=== PATIENT | female | born 1990 | race Caucasian/White ===

== ENCOUNTER 2018-05-18 18:32 | Emergency (ER) | payer MEDICAID, SELFPAY ==
[2018-05-18 18:33] VITALS: BP 122/95; PULSE 109; RESP 12; TEMP 36.8; O2SAT 100; BMI 24.5
--- NOTE | 2018-05-18 19:21 | ED.DCSUM_ITS ---
- ER Visit Summary Date of Service: 05/18/18 Chief Complaint: Syncope History of Present Illness: The patient is a 28 F who presents with syncope. She states that today she was very stressed and she sat down to take a nap and when she woke up everybody was around her and said that she passed out. She states that she feels normal now. She has a lot of anxiety and has been stressed recently. She does have a history of syncopal episodes in the past. She currently is on gabapentin, Minipress and rec salty. She states that she just restarted these medications today. Physical Examination: Vital signs reviewed. HEENT exam unremarkable. Heart is regular rate and rhythm without murmurs. Lungs are clear to auscultation. Abdomen is soft and nontender. Extremities reveal no edema. Skin exam normal. Neurologic exam normal. Test Results: None performed Emergency Department Course and Treatment: Patient does not want any laboratory studies or any workup. She is currently alert and oriented x3 he can make her own decisions. She will be discharged Treatment Plan: [] Disposition: Discharge Impression: Syncope This note was generated with [employer] dictation software. It may contain incorrect words, spelling, and punctuation that were not noted in review of the chart prior to signing ED Disposition - Plan for ED Patient: Disposition: Home or Assisted Living Chief Complaint: Syncope Instructions: ED Fainting Unkn Cause Referrals: Care Physician,No Primary [Primary Care Provider] -
--- NOTE | 2018-05-18 19:27 | ED.RN ---
DISCHARGE INSTRUCTIONS GIVEN TO AND REVIEWED WITH PATIENT, PATIENT DENIES QUESTIONS OR CONCERNS AND VOICES UNDERSTANDING OF DISCHARGE INSTRUCTIONS. PT AMBULATES OUT OF ROOM WITHOUT DIFFICULTY
== END 2018-05-18 19:28 | disposition home or self-care (01) ==
PROVIDERS: Emergency Provider Emergency Medicine
DX: R55 Syncope and collapse (principal); F41.9 Anxiety disorder, unspecified; Z72.0 Tobacco use; Z79.899 Other long term (current) drug therapy
CPT/HCPCS: 99283

== ENCOUNTER 2018-07-09 15:05 | Emergency (ER) | payer MEDICAID, SELFPAY ==
[2018-07-09 15:06] VITALS: BP 140/79; PULSE 103; RESP 16; TEMP 36.6; O2SAT 98; BMI 24.9
--- NOTE | 2018-07-09 15:21 | CT_ITS ---
STUDY: CT BRAIN WITHOUT CONTRAST REASON FOR EXAM: Female, 28 years old. Right posterior head injury following a fall. Loss of consciousness. Vomiting. RADIATION DOSAGE (If Supplied By Facility): CTDIvol = ( 44.99 ) mGy, DLP = ( 745.49 ) mGycm TECHNIQUE: Transaxial CT imaging of the brain was performed without administration of intravenous contrast material. Individualized dose optimization techniques were used for this CT. COMPARISON: None. FINDINGS: Normal soft tissue structures. Physis suggesting a nondisplaced fracture involving the right occipital bone. The patient has a history of old fracture. Clinical correlation is recommended. Normal size ventricles and extra-axial spaces for the patient's age. Normal white matter tracts of the cerebral hemispheres. Normal basal ganglia and thalami. Normal brainstem. Normal cerebellum. There is no intracranial hemorrhage. There are no findings of an acute ischemic infarction. Normal visualized paranasal sinuses. CT/Brain/Head without Contrast IMPRESSION: Nondisplaced fracture of the right posterior occipital bone as seen on axial image #9 and coronal image #59 and 60. Clinical correlation is recommended. The referring physician has been notified. Electronically Signed: Huey Joaquin MD at 16:07 EST Tel [phone], Service support ,
--- NOTE | 2018-07-09 15:30 | ED.VISSUMM ---
- ER Visit Summary Date of Service: 07/09/18 Chief Complaint: Head injury History of Present Illness: The patient is a 28 F presenting for evaluation secondary to a head injury. Patient reports that she suffered a mechanical fall downstairs today where she slipped and struck her occiput on stairs. She reports that she may have slid down as many as 3 or 4 steps. She lost consciousness. She states that since then she has been having headache, dizziness, and has vomited 3 times. Patient denies that she is on a set of anticoagulants. She denies any visual changes numbness or weakness. Physical Examination: Primary survey: Airway is patent, breath sounds equal bilateral, central peripheral pulses 2+ and symmetric, GCS 15 out of 15. Vitals within normal limits. Secondary survey: General: Well-nourished well-developed no acute distress Head: Normocephalic atraumatic, tenderness to palpation in the right occipital region without evidence of depressed skull fracture Eyes: PERRLA, EOMI ENT: TMs clear no hemotympanum no drainage Neck: Nontender full range of motion, no step-offs noted Heart: Regular rate and rhythm no murmurs Lungs: Respirations nondistressed, lung sounds clear to auscultation bilaterally, chest nontender, normal chest excursion bilaterally Abdomen: Soft nontender nondistended normal bowel sounds no palpable abdominal masses Back: Nontender no step-offs noted Extremities: Nontender: Active full range of motion ?4 Skin: Normal color no trauma Neuro: Alert and oriented ?4, GCS 15 out of 15, no lateralizing neurological deficits. Test Results: Head CT demonstrates evidence of a nondisplaced right occipital skull fracture without any evidence of underlying hematoma Emergency Department Course and Treatment: Patient presented secondary to a mechanical fall with head injury. Given the patient's loss of consciousness and location of her injury CT was performed. CT showed evidence of a right occipital skull fracture. Patient secondary survey actually shows no other traumatic issues. I do not believe that further imaging is indicated. Given the patient's skull fracture I believe that she requires observation at a trauma center. Patient requested transfer to [facility]. I will discussed this with the transfer line. Disposition: Transfer Impression: 1. Right occipital skull fracture 2. Mechanical fall downstairs This note was generated with [employer] dictation software. It may contain incorrect words, spelling, and punctuation that were not noted in review of the chart prior to signing ED Disposition - Plan for ED Patient: Chief Complaint: Head Injury Referrals: Care Physician,No Primary [NON-STAFF] -
--- NOTE | 2018-07-09 15:35 | ED.DCSUM_ITS ---
- ER Visit Summary Date of Service: 07/09/18 Chief Complaint: Head injury History of Present Illness: The patient is a 28 F presenting for evaluation secondary to a head injury. Patient reports that she suffered a mechanical fall downstairs today where she slipped and struck her occiput on stairs. She rep orts that she may have slid down as many as 3 or 4 steps. She lost consciousness. She states that since then she has been having headache, dizziness, and has vomited 3 times. Patient denies that she is on a set of anticoagulants. She denies any visual changes numbness or weakness. Physical Examination: Primary survey: Airway is patent, breath sounds equal bilateral, central peripheral pulses 2+ and symmetric, GCS 15 out of 15. Vitals within normal limits. Secondary survey: General: Well-nourished well-developed no acute distress Head: Normocephalic atraumatic, tenderness to palpation in the right occipital region without evidence of depressed skull fracture Eyes: PERRLA, EOMI ENT: TMs clear no hemotympanum no drainage Neck: Nontender full range of motion, no step-offs noted Heart: Regular rate and rhythm no murmurs Lungs: Respirations nondistressed, lung sounds clear to auscultation bilaterally, chest nontender, normal chest excursion bilaterally Abdomen: Soft nontender nondistended normal bowel sounds no palpable abdominal masses Back: Nontender no step-offs noted Extremities: Nontender: Active full range of motion ?4 Skin: Normal color no trauma Neuro: Alert and oriented ?4, GCS 15 out of 15, no lateralizing neurological deficits. Test Results: Head CT demonstrates evidence of a nondisplaced right occipital skull fracture without any evidence of underlying hematoma Emergency Department Course and Treatment: Patient presented secondary to a mechanical fall with head injury. Given the patient's loss of consciousness and location of her injury CT was performed. CT showed evidence of a right occipital skull fracture. Patient secondary survey actually shows no other traumatic issues. I do not believe that further imaging is indicated. Given the patient's skull fracture I believe that she requires observation at a trauma center. Patient requested transfer to [facility]. I will discussed this with the transfer line. Disposition: Transfer Impression: 1. Right occipital skull fracture 2. Mechanical fall downstairs This note was generated with [employer] dictation software. It may contain incorrect words, spelling, and punctuation that were not noted in review of the chart prior to signing ED Disposition - Plan for ED Patient: Chief Complaint: Head Injury Referrals: Care Physician,No Primary [NON-STAFF] -
[2018-07-09 16:30] VITALS: BP 126/75; PULSE 95; RESP 16; O2SAT 98
--- NOTE | 2018-07-09 16:37 | NURSING ---
[id number] CALLED [facility] FOR TRANSPORT
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
== END 2018-07-09 17:03 | disposition short-term general hospital (02) ==
PROVIDERS: Emergency Provider Emergency Medicine
DX: S02.119A Unspecified fracture of occiput, initial encounter for closed fracture (principal); Z72.0 Tobacco use; Z79.899 Other long term (current) drug therapy; W10.9XXA Fall (on) (from) unspecified stairs and steps, initial encounter; Y93.01 Activity, walking, marching and hiking; Y92.009 Unspecified place in unspecified non-institutional (private) residence as the place of occurrence of the external cause; Y99.8 Other external cause status
CPT/HCPCS: 70450; 99285; A4216

== ENCOUNTER 2018-10-10 15:41 | Emergency (ER) | payer MEDICAID, SELFPAY ==
[2018-10-10 15:42] VITALS: BP 140/89; PULSE 109; RESP 17; TEMP 36.8; O2SAT 100; BMI 22.3
--- NOTE | 2018-10-10 16:10 | ED.VISSUMM ---
- ER Visit Summary Date of Service: 10/10/18 Chief Complaint: Pain History of Present Illness: The patient is a 28 F with right sided neck pain. This has been getting worse of the past 2 months. It was worse today and so she came in for help. Things seem to bring it on and she never had a history of this in the past. Denies any recent injuries. Pain is worse with moving. She tried taking nfjb-nul-jfukdwd remedies once but it does not help. Denies any history of fevers. Denies any history of redness or swelling. Denies any neurologic symptoms or complaints. Physical Examination: Afebrile and vital signs unremarkable except for heart rate of 109. The patient is alert and oriented. No acute distress. HEENT exam unremarkable. Right cervical paraspinal muscles are tender to palpation. Spine nontender. Overlying skin normal in color without redness or warmth. Good range of motion. No meningeal signs. Cranial nerves grossly intact. Normal strength and sensation. Test Results: None performed Emergency Department Course and Treatment: I believe the patient has myofascial neck pain. She does have a history of heroin abuse but is not having infectious symptoms. There is no indication for imaging or other diagnostic testing. She was treated with external naproxen. She was also prescribed a course of a Medrol Dosepak. Follow-up with primary care. Return for any new or worsening issues. Treatment Plan: As above Disposition: Discharge Impression: 1. Cervical strain This note was generated with [employer] dictation software. It may contain incorrect words, spelling, and punctuation that were not noted in review of the chart prior to signing ED Disposition - Plan for ED Patient: Referrals: Bimal Harding,Out of [Primary Care Provider] -
--- NOTE | 2018-10-10 16:13 | ED.DCSUM_ITS ---
- ER Visit Summary Date of Service: 10/10/18 Chief Complaint: Pain History of Present Illness: The patient is a 28 F with right sided neck pain. This has been getting worse of the past 2 months. It was worse today and so she came in for help. Things seem to bring it on and she never had a history of this in the past. Denies any recent injuries. Pain is worse with moving. She tried taking aruv-ypk-axxaiom remedies once but it does not help. Denies any history of fevers. Denies any history of redness or swelling. Denies any neurologic symptoms or complaints. Physical Examination: Afebrile and vital signs unremarkable except for heart rate of 109. The patient is alert and oriented. No acute distress. HEENT exam unremarkable. Right cervical paraspinal muscles are tender to palpation. Spine nontender. Overlying skin normal in color without redness or warmth. Good range of motion. No meningeal signs. Cranial nerves grossly intact. Normal strength and sensation. Test Results: None performed Emergency Department Course and Treatment: I believe the patient has myofascial neck pain. She does have a history of heroin abuse but is not having infectious symptoms. There is no indication for imaging or other diagnostic testing. She was treated with external naproxen. She was also prescribed a course of a Medrol Dosepak. Follow-up with primary care. Return for any new or worsening issues. Treatment Plan: As above Disposition: Discharge Impression: 1. Cervical strain This note was generated with [employer] dictation software. It may contain incorrect words, spelling, and punctuation that were not noted in review of the chart prior to signing ED Disposition - Plan for ED Patient: Referrals: Bimal Harding,Out of [Primary Care Provider] -
--- NOTE | 2018-10-10 16:13 | ED.DEP ---
ED Disposition - Plan for ED Patient: Instructions: ED Neck Pain No Trauma Prescriptions: MethylPREDNISolone DosePak [Medrol DosePak] 4 mg PO UD #1 box Naproxen [Naprosyn] 500 mg PO BID #20 tab Cyclobenzaprine [Flexeril] 10 mg PO TID PRN #20 tab PRN Reason: Muscle Spasm Referrals: Marci Benedict [NON-STAFF] -
[2018-10-10 16:15] VITALS: BP 141/93; PULSE 105; RESP 16; O2SAT 100
[2018-10-10] MEDS: Naproxen 500 MG Tablet PO (16:15)
[2018-10-10 16:19] VITALS: RESP 16
== END 2018-10-10 16:27 | disposition home or self-care (01) ==
LOC: ED 16:08
PROVIDERS: Emergency Provider Emergency Medicine
DX: S16.1XXA Strain of muscle, fascia and tendon at neck level, initial encounter (principal); Z72.0 Tobacco use; Z79.899 Other long term (current) drug therapy; X58.XXXA Exposure to other specified factors, initial encounter; Y93.89 Activity, other specified; Y92.89 Other specified places as the place of occurrence of the external cause; Y99.8 Other external cause status
CPT/HCPCS: 99283

== ENCOUNTER 2020-01-19 06:49 | Emergency (ER) | payer MEDICAID, SELFPAY ==
[2020-01-19 06:50] VITALS: BP 111/75; PULSE 90; RESP 18; TEMP 36.7; O2SAT 100; BMI 22.8
--- NOTE | 2020-01-19 07:11 | ED.DCSUM_ITS ---
- ER Visit Summary Date of Service: 01/19/20 Chief Complaint: Bilateral flank pain History of Present Illness: The patient is a 29 F who presents with bilateral flank pain that is been getting worse over the past 3 days. Patient states she felt like she had a urinary tract infection and started having pain in her back. Patient states the pain is now in both flanks and over her anterior abdomen as well. Patient describes the pain as aching. Patient states nothing makes it better or worse. Patient admits to nausea but denies any vomiting. Patient admits to subjective chills but denies any fevers. Patient denies any abnormal vaginal bleeding or discharge. Physical Examination: Vital signs are stable. Patient is afebrile. Patient is in no acute distress. Oral mucosa is pink and moist. Neck is supple. Trachea is midline. There is no JVD. Heart was regular rate and rhythm. Lungs are clear and equal bilaterally. Abdomen is soft. Bowel sounds are normal. There is diffuse tenderness. There is no rebound or guarding noted. Extremities are intact. There is no calf tenderness or edema. Cranial nerves II through XII are intact. There are no focal motor or sensory deficits. Test Results: CBC shows a slight leukocytosis of 11.6. Comprehensive metabolic profile and lipase were essentially within normal limits. Serum hCG was negative. Urinalysis shows leukocyte esterase of 500 with 25-50 white blood cells. Urine culture was obtained. Blood culture was obtained. Emergency Department Course and Treatment: Patient was given IV fluids, Zofran, and Toradol here. Patient was given a dose of Rocephin here. Patient was given prescription for Cipro. Patient was instructed to drink plenty of fluids. Patient was instructed to take Tylenol or ibuprofen as needed for pain or fever. Patient was instructed to follow-up with her primary care physician in 5-7 days. Patient was instructed return if worse in any way. Patient understood and was agreeable with the plan. All questions were answered. Disposition: Discharge home Impression: 1. Pyelonephritis This note was generated with [employer] dictation software. It may contain incorrect words, spelling, and punctuation that were not noted in review of the chart prior to signing ED Disposition - Plan for ED Patient: Disposition: Home or Assisted Living Diagnosis: Pyelonephritis Instructions: ED Pyelonephritis Female Adult Prescriptions: Ciprofloxacin [Cipro] 500 mg PO BID #14 tab Prescription Printed Referrals: [facility] Doctor,Out of [NON-STAFF] - 5-7 Days
[2020-01-19 07:15] LABS: Mucous, Urine 0 SEEN /hpf (<or=2+)
[2020-01-19 07:17] LABS: Absolute Lymphocyte Count 4.04 X10^3/uL (0.83-4.51); Absolute Neutrophil Count 6.4 X10^3/uL (2.0-7.7); Basophil# 0.06 X10^3/uL; Basophil% 0.5 % (0-1); Eosinophil# 0.21 X10^3/uL; Eosinophils% 1.8 % (0-5); Hematocrit 43.9 % (37-47); Hemoglobin 14.2 g/dL (12.0-15.0); Lymphocyte # 4.04 X10^3/ul (4.0); Lymphocyte % 34.9 % (19-41); Mean Corp Hgb Conc 32.3 g/dL (32-36); Mean Corpuscular Hgb 31.9 pg (27.0-32.0); Mean Corpuscular Volume 98.7 fL (81-99); Mean Platelet Vol. 9.9 fl (6.2-12.0); Monocyte# 0.82 X10^3/uL; Monocyte% 7.1 % (0-10); NRBC Flagged by Analyzer 0 % (0-5); Neutrophil % 55.4 % (47-70); Platelet Count 298 K/mm3 (150-450); RBC Distribution Width CV 12.4 % (11.6-14.6); RBC Distribution Width SD 44.9 fl (35.1-43.9); Red Blood Count 4.45 M/mm3 (4.2-5.4); White Blood Count 11.6 K/mm3 (4.4-11.0)
[2020-01-19 07:17] LABS: Color, Urine Yellow (Yellow); Glucose, Dipstick Normal (Normal); Ketone-Dipstick Negative (Negative); Leukocyte Esterase-Dipstick 500 /ul (Negative); Nitrite-Dipstick Negative (Negative); Occult Blood-Urine 25 /ul (Negative); Protein-Dipstick 30 mg/dl (Negative); Specific Gravity, Urine 1.015 (1.002-1.030); Urine Bilirubin Dipstick Negative (Negative); Urine Clarity Sl. Cloudy (Clear); Urine Urobilinogen Normal (Normal); Urine pH 6.5 (5.0 - 8.0)
[2020-01-19] MEDS: 0.9% Normal Saline 1,000 ML 1000 ML IV (07:18)
[2020-01-19] MEDS: Ketorolac 30 MG/ML Syringe IV (07:18)
[2020-01-19] MEDS: Ondansetron 4 MG/2 ML Vial IV (07:18)
[2020-01-19 07:23] LABS: Bacteria RARE /hpf (None Seen); Red Blood Cells-Urine 0-5 SEEN /hpf (0-5); Squamous Epithelial Cells - UA 0-5 SEEN /hpf (5-10); White Blood Cells 25-50 SEEN /hpf (0-5)
[2020-01-19 07:39] LABS: Internal QC Validated? YES +Cl - CLEAR BKGD; Pregnancy, Serum, hCG Quali. NEGATIVE Negative
[2020-01-19] MEDS: Ceftriaxone 1 GM/50 ML BAG IV (07:39)
[2020-01-19 07:40] LABS: ALB/GLOB Ratio 1.1 RATIO (0.9-2.4); AST(SGOT) 20 U/L (15-37); Alanine Aminotransfer ALT/SGPT 11 U/L (13-56); Albumin, Serum 3.8 g/dL (3.2-5.0); Alkaline Phosphatase 108 U/L (45-117); Anion Gap 7 (5-15); BUN 15 mg/dL (7-18); BUN/Creat Ratio 17.1 RATIO (10-20); Chloride 108 mmol/L (98-107); Creatinine, Serum 0.88 mg/dL (0.55-1.02); EST Glomerular Filtration Rate 81 mL/min (>60); Est Glom Filt Rate - Afr Amer 98 mL/min (>60); Estimated Creatinine Clearance 82.19 ml/min; Globulin 3.4 g/dL (2.2-4.2); Glucose 109 mg/dL (74-106); Lipase 304 U/L (73-393); Potassium 4.4 mmol/L (3.5-5.1); Protein, Total 7.2 g/dL (6.4-8.2); Sodium Level 141 mmol/L (136-145)
== END 2020-01-19 08:47 | disposition home or self-care (01) ==
PROVIDERS: Emergency Provider Emergency Medicine; PCP Internal Medicine
DX: N12 Tubulo-interstitial nephritis, not specified as acute or chronic (principal); Z72.0 Tobacco use
CPT/HCPCS: 80053; 81001; 83690; 84703; 85025; 87040; 87077; 87086; 87088; 96365; 96375; 99284; J7030; A4216; J2405

== ENCOUNTER → 2020-02-03 | Outpatient (CLI) | payer MEDICAID, SELFPAY ==
[2020-01-19 06:50] VITALS: BMI 22.8
[2020-02-03 13:28] LABS: HIV - WCH Non-Reactive (Nonreactive); Hepatitis B Surface Antigen Non-Reactive (Nonreactive)
[2020-02-03 13:29] LABS: Hepatitis C Antibody REACTIVE (Nonreactive)
[2020-02-04 14:32] LABS: HSV 2 IgG < 0.91 index (0.00-0.90)
[2020-02-04 17:16] LABS: AST(SGOT) 11 U/L (15-37); Alanine Aminotransfer ALT/SGPT 10 U/L (13-56); Albumin, Serum 4.2 g/dL (3.2-5.0); Alkaline Phosphatase 97 U/L (45-117); Bilirubin, Direct 0.22 mg/dL (0.00-0.30); Globulin 3.1 g/dL (2.2-4.2); Protein, Total 7.3 g/dL (6.4-8.2)
[2020-02-05 01:39] LABS: Rapid Plasmin Reagin (RPR) NONREACTIVE (NONREACTIVE)
[2020-02-10 03:07] LABS: HCV Quant. RNA PCR HCV Not Detected IU/mL (.)
== END | disposition home or self-care (01) ==
PROVIDERS: PCP Internal Medicine; Visit Provider Obstetrics & Gynecology
DX: Z11.3 Encounter for screening for infections with a predominantly sexual mode of transmission (principal); Z12.4 Encounter for screening for malignant neoplasm of cervix; R79.89 Other specified abnormal findings of blood chemistry
CPT/HCPCS: 36415; 80076; 86592; 86695; 86696; 86703; 86803; 87340; 87522

== ENCOUNTER → 2023-03-21 | Outpatient (CLI) | payer MEDICAID, SELFPAY ==
[2023-03-26 19:07] LABS: HPV APTIMA, High Risk Negative (Negative)
== END | disposition home or self-care (01) ==
LOC: LABSPEC 13:30
PROVIDERS: PCP Internal Medicine; Visit Provider Student in an Organized Health Care Education/Training Program
DX: Z12.4 Encounter for screening for malignant neoplasm of cervix (principal)
CPT/HCPCS: 87624; 88175; G0145

== ENCOUNTER 2025-06-06 13:31 | Emergency (ER) | payer MEDICAID, SELFPAY ==
[2025-06-06 13:32] VITALS: BP 145/86; PULSE 102; RESP 16; TEMP 36.6; O2SAT 100
[2025-06-06 13:35] VITALS: BP 145/86; PULSE 102; RESP 16; TEMP 36.6; O2SAT 100
[2025-06-06 13:47] VITALS: BMI 26.7
--- NOTE | 2025-06-06 13:57 | ED.VIS.LOWEX ---
HPI History of Present Illness Chief Complaint: Wound Check Informant: patient Narrative Narrative: 35-year-old female presenting to the emergency room with a chief complaint of infection. Patient states that yesterday while putting on her socks she noticed a black absentee-shawnee with some small redness around it located on her right ankle. Patient states she has not been having any fevers. She does not recall being bit by anything. She is not a diabetic. She states that she has not had any abscesses or wounds like this before. No one else has anything similar at home. PFSH PFSH Medical History no medical history Home Medications ?Medication ?Instructions ?Recorded ?Last Taken ?Type cariprazine 1.5 mg capsule 1.5 mg PO DAILY 06/06/25 Unknown History (Vraylar) cephalexin 500 mg capsule 500 mg PO Q6 #28 CAPSULES 06/06/25 Unknown Rx gabapentin 600 mg tablet 600 mg PO TID 06/06/25 Unknown History hydroxyzine pamoate 25 mg capsule 25 mg PO TID PRN anxiety 06/06/25 Unknown History Allergy/AdvReac Type Severity Reaction Status Date / Time No Known Allergies Allergy Verified 06/06/25 13:35 Family History no significant family his Surgical History no surgical history Social History Smoking Status: Current every day smoker tobacco type: e-cigarettes ROS ROS ED Constitutional Constitutional ED: Denies chills, fever(s) or weight loss Eyes Eyes: Denies change in vision or diplopia ENT ENT ED: Denies ear pain, rhinorrhea or sore throat Cardiovascular Cardiovascular: Denies chest pain, orthopnea, palpitations or racing heartbeat Respiratory/Chest Respiratory/Chest: Denies cough, dyspnea or orthopnea Gastrointestinal Gastrointestinal: Denies abdominal pain, diarrhea, nausea or vomiting Genitourinary Genitourinary ED: Denies dysuria, hematuria or urinary frequency Musculoskeletal Musculoskeletal: Denies arthralgias or myalgias Integumentary Reports rash and other Details: Wound right ankle ; Denies abscess Neurologic Neurologic: Denies headache(s) or weakness Psychiatric Psychiatric: Denies anxiety, depression, suicidal ideation or suicidal thoughts Endocrine Endocrinology: Denies polydipsia, polyphagia or polyuria Allergic/Immunologic Allergic/Immunologic ED: Denies mouth swelling, tongue swelling or urticaria EXAM Physical Exam Const Vital Signs: 06/06/25 13:32 06/06/25 13:35 Temperature 98 F 98 F Temperature Source Oral Oral Pulse Rate 102 H 102 H Respiratory Rate 16 16 Blood Pressure 145/86 H 145/86 H Blood Pressure Mean 105 105 Pulse Ox 100 100 Oxygen Delivery Method Room Air Room Air Positive well nourished and well developed General Appearance ED: well developed HEENT Reports normocephalic, head/scalp atraumatic and moist mucous membranes Eyes PERRL and EOMs intact bilaterally Neck no lymphadenopathy, supple and no JVD Resp normal respiratory effort and clear to auscultation bilaterally Cardio regular rate, regular rhythm and no murmurs GI normal to inspection, nondistended, normoactive bowel sounds and non-tender Palpation: soft Back/Spine no CVA tenderness and normal ROM Extremity Extremity Narrative: Located just above the right lateral malleolus is a 3 mm round black necrotic center of the wound that has surrounding erythema now extending down towards the lateral malleolus onto the dorsum of the foot. There is no lymphangitic streaking. There is no significant lymphedema of the entire leg. No palpable cords. The calf is nontender. The knee joint appears normal. There is no drainage from the wound. General Extremety ED: Negative for edema General Extremity: Negative for edema Neuro oriented x3 and CN's II-XII intact bilaterally Sensorium / Orientation: alert Motor Exam: strength 5/5 throughout Psych mental status grossly normal Mood & Affect: Negative for depressed or tearful Skin no rashes or lesions noted and no wounds MDM MDM MDM Narrative Medical decision making narrative: Differential diagnosis includes but not limited to cellulitis spider bite insect bite local reaction to envenomation abscess Clinically the patient appears well. She is afebrile. She has not been on antibiotics. Symptoms have been going on slightly longer than 24 hours. It does seem possible that this could be a spider bite. I think it is very reasonable that she provide local wound care to the area as well as cover her with some Keflex for cellulitis. Patient to monitor the symptoms. She took a photo of it yesterday as well as today which is very helpful for comparing and contrasting progression. I would recommend that she keep doing this. Patient to return if worsening or concerns follow-up with primary care History & Record Review Discussion w/independent historian: Patient Discharge Plan Triage Chief Complaint: Wound Check ED Provider: Meng Brunner Dx/Rx/DC Orders Clinical Impression: Cellulitis Instructions: ED Cellulitis Prescriptions: New cephalexin 500 mg capsule 500 mg PO Q6 Qty: 28 0RF No Action gabapentin 600 mg tablet 600 mg PO TID hydroxyzine pamoate 25 mg capsule 25 mg PO TID PRN (Reason: anxiety) Vraylar 1.5 mg capsule 1.5 mg PO DAILY Primary Care Provider: Alba Quintero Referrals: Alba Quintero DO [Primary Care Provider, Internal Medicine] Print Language: Turkish Disposition Disposition: Home, Self Care
[2025-06-06 14:01] VITALS: BP 145/86; PULSE 95; RESP 16; TEMP 36.6; O2SAT 100
--- OUTSIDE RECORDS SUMMARY | 2025-06-06 14:11 | XMS RPT_ITS | CCD ---
Author Organization [facility] Care Team Providers Care Biological Chemist Name Role Phone No Doctor Assigned, Nodr Unavailable Unavail able Ivanauskas, Saulius Unavailable Unavailable Ivanauskas, Saulius Unavailable Unavailable ObdanielehausPawel sanabrian L Unavailable Unavailable Oberhauser Sridhar L Unavailable Unavailable ObdanielehausPawel sanabrian L Unavailable Unavailable PLAYL, JORGE ALBERTO Unavailable Unavailable YOLY MORAESRICK Unavailable Unavailable ARNOLDO MORAES Attending Unavailable Sridhar Quintero Primary Care Provider [phone] NONE, NONE Primary Care Unavailable PAULINA DEL VALLE Admitting Unavailable PAULINA DEL VALLE Attending Unavailable NONE, NONE Consulting Unavailable NONE, NONE Primary Care Unavailable SOLE, ALESSANDRO J Admitting Unavailable SOLE, ALESSANDRO J Attending Unavailable Chilango STALEY Consulting Unavailable SOLE, ALESSANDRO J Consulting Unavailable NONE, NONE Consulting Unavailable NONE, NONE Primary Care Unavailable ESCALERA, DIONNA K Admitting Unavailable ESCALERA, DIONNA K Attending Unavailable NONE, NONE Consulting Unavailable NONE, NONE Primary Care Unavailable SOLE, ALESSANDRO J Admitting Unavailable SOLE, ALESSANDRO J Attending Unavailable SOLE, ALESSANDRO J Consulting Unavailable NONE, NONE Consulting Unavailable SRIDHAR QUINTERO C Consulting Unavailable NONE, NONE Primary Care Unavailable ESCALERA, DIONNA K Consulting Unavailable ESCALERA, DIONNA K Admitting Unavailable ESCALERA, DIONNA K Attending Unavailable NONE, NONE Consulting Unavailable LOULOU KING Attending Unavaila ble SRIDHAR QUINTERO Primary Care Unavailable ObSridhar courtney L Unavailable Margaret Mchugh Unavailable Marley Lugo Unavailable Unavailable Ingrid, Dr. Sridhar Alvarado Primary Care Unava DO Marley Hubbard Attending Unavailab melvina Quintero, Dr. Sridhar Alvarado Primary Care Unava ilDr. MARGARET Jackson Attending Unavail able PHYSICIAN, NONE Primary Care Physician Unavailab ANNELISE Garzon MD Attending Unava ilable PHYSICIAN, NONE Primary Care Unavailable Sridhar Quintero Primary Care Unavailable Natalie Chaparro Attending Unavailable Unavailable Primary Care Provider Unavailjose elias e Sridhar Quintero DO Unavailable Nigel To DO Primary Care Provide r Fang Torres MD Unavailable NIGEL TO Referring Unavail able ZULEIKA, NIGEL ROBLERO Primary Care Unavail able NIGEL TO Admitting Unavail able SRIDHAR AIKEN Attending Unavailable Nigel To Primary Care Provider [phone] MIMI JOYNER Attending Unavailable ZULEIKA, NIGEL ROBLERO Primary Care Unavail able PAUL ARORA Attending Unavailable ZULEIKA, NIGEL ROBLERO Primary Care Unavail able LOVELY DALTON Attending Unavailab le NIGEL TO Primary Care Unavail able LIBAN SANDOVAL Attending Unavailable ZULEIKA, NIGEL ROBLERO Primary Care Unavail able ÓSCAR GUERRA Attending Unavailable ZULEIKA, NIGEL Primary Care Unavailable ZULEIKA, NIGELTIKI ROBLERO Primary Care Unavail able ROSEMARY HOBBS Attending Unavail able NIGEL TO Admitting Unavail able ZULEIKA NIGELTIKI ROBLERO Referring Unavail able ZULEIKA NIGELTIKI ROBLERO Primary Care Unavail able NIGEL TO Attending Unavail able ZULEIKA, NIGEL ROBLERO Primary Care Unavail able NIGEL TO Attending Unavail able ZULEIKA, NIGEL ROBLERO Primary Care Unavail able JESSICA VALENCIA Attending Unavailabl e ROSEMARY HOBBS Attending Unavail able ZULEIKA, NIGEL ROBLERO Primary Care Unavail able Allergies Allergy Classification Reported Allergen(s) Allergy Type Date of Onset Reaction(s) Facility (20 sources) Cabbage preparation; Translations: [CABBAGE] Drug Allergy 3 Unknown [facility] Comment on above: Cabbage (2 sources) Nuts (not including peanuts) Unknown [facility] (2 sources) Onions Unknown [facility] (2 sources) Peppers Unknown [facility] Comment on above: Peppers (20 sources) Hazelnut; Translations: [HAZELNUT] Propensity to adverse reactions to drug 3 Anaphylaxis [facility] (20 sources) Food Extracts; Translations: [FOOD EXTRACTS] Propensity to adverse reactions to drug 3 Unknown [facility] (20 sources) Other; Translations: [OTHER] Propensity to adverse reactions 3 Unknown [facility] (20 sources) tree nut, unspecified; Translations: [TREE NUTS] Propensity to adverse reactions to drug 3 Unknown [facility] Medications Current Medications Medication Drug Class(es) Dates Sig (Normalized) Sig (Original) cariprazine 1.5 mg oral capsule (14 sources) Atypical Antipsychotic Start: 03-11-2025 End: 04-09-2025 take 1 capsule by mouth once daily cariprazine (VRAYLAR) 1.5 mg capsule Indications: Bipolar 1 disorder, depressed (HCC) Take 1 (one) capsule (1.5 mg total) by mouth daily . 30 capsule 04/09/2025 Active Start: 10-30-2024 End: 03-10-2025 take 1 capsule by mouth once daily cariprazine (VRAYLAR) 1.5 mg capsule Indications: Bipolar 1 disorder, depressed (HCC) Take 1 (one) capsule (1.5 mg total) by mouth daily . 30 capsule 01/27/2025 03/10/2025 Discontinued (Reorder (Suppress CancelRx Message to Pharmacy)) cephalexin 500 mg oral capsule (4 sources) Cephalosporin Antibacterial Start: 12-16-2018 End: 12-18-2018 take 1 capsule by mouth every twelve hours cephALEXin (KEFLEX) 500 MG capsule Take 1 (one) capsule (500 mg total) by mouth every 12 (twelve) hours for 2 days . 4 capsule 0 12/16/2018 12/18/2018 Active Start: 12-11-2018 End: 12-16-2018 cephALEXin (KEFLEX) capsule 500 mg Start: 12-11-2018 End: 12-11-2018 cephALEXin (KEFLEX) capsule 1,000 mg ciprofloxacin 500 mg oral tablet (1 source) Quinolone Antimicrobial Start: 01-19-2020 take 500 mg by mouth twice daily Ciprofloxacin Hcl Active 500 MG PO TWICE A DAY January 19, 2020 12:00am dicyclomine hydrochloride 20 mg oral tablet (1 source) Anticholinergic Start: 10-08-2024 take 1 tablet by mouth four times daily before mealtime dicyclomine (Bentyl) 20 mg tablet Indications: Diarrhea, unspecified type Take 1 tablet (20 mg) by mouth 4 times a day before meals. 30 tablet 10/08/2024 Active Start: 10-08-2024 take 1 tablet by fouzia th four times daily before mealtime dicyclomine (Bentyl) 20 mg tablet Indications: Diarrhea, unspecified type Take 1 tablet (20 mg) by mouth 4 times a day before meals. 30 tablet 10/08/2024 Active gabapentin 600 mg oral tablet (20 sources) Anti-epileptic Agent Start: 09-13-2023 End: 05-24-2025 take 1 tablet by mouth three times daily gabapentin (NEURONTIN) 600 MG tablet Indications: Fibromyalgia Take 1 (one) tablet (600 mg total) by mouth 3 (three) times a day . 270 tablet 12/29/2024 Active Start: 06-13-2023 End: 09-13-2023 take 1 capsule by mouth three times daily gabapentin (NEURONTIN) 400 MG capsule Indications: Fibromyalgia Take 1 (one) capsule (400 mg total) by mouth 3 (three) times a day . 270 capsule 0 06/13/2023 09/13/2023 Discontinued Start: 05-07-2023 End: 06-06-2023 take 1 capsule by mouth every eight hours gabapentin (NEURONTIN) 300 MG capsule Indications: Fibromyalgia Take 1 (one) capsule (300 mg total) by mouth every 8 (eight) hours . 90 capsule 0 05/07/2023 06/06/2023 Active Start: 11-20-2018 End: 12-16-2018 take 1 capsule by mouth three times daily gabapentin (NEURONTIN) 400 MG capsule Take 400 mg by mouth 3 (three) times a day . 2 11/20/2018 12/16/2018 Discontinued (Stop Taking at Discharge) Start: 11-21-2016 End: 11-23-2016 take 800 mg by mouth three times daily at mealtime Gabapentin Discontinued 800 MG PO 3 TIMES DAILY WITH MEALS November 21, 2016 12:00am November 23, 2016 1:40pm Comment on above: Take 400 mg by mouth three times daily. 12 hr guaiFENesin 600 mg extended release oral tablet (1 source) Start: 09-06-19 End: 10-07-19 take 1 tablet by mouth once guaiFENesin (MUCINEX) 600 mg 12 hr tablet Take 1 (one) tablet (600 mg total) by mouth every 12 (twelve) hours . 60 tablet 09/06/2024 10/06/2024 Active 24 hr nicotine 0.875 mg/hr transdermal system (3 sources) Cholinergic Nicotinic Agonist Start: 12-18-19 End: 01-17-20 apply 1 dose transdermal route once daily nicotine (NICODERM CQ) 21 mg/[address] 1 (one) patch on the skin daily Start: 12/17/18. 28 patch 0 12/17/2018 01/16/2019 Active Start: 12-11-2018 End: 12-16-2018 nicotine (NICODERM CQ) 21 mg /24 hr 1 patch ondansetron 4 mg disintegrating oral tablet (5 sources) Serotonin-3 Receptor Antagonist Start: 10-08-2024 take 1 tablet by mouth every eight hours as needed for diarrhea and diarrhea ondansetron ODT (Zofran-ODT) 4 mg disintegrating tablet Indications: Diarrhea, unspecified type Dissolve 1 tablet (4 mg) in the mouth every 8 hours if needed for nausea or vomiting. 15 tablet 10/08/2024 Active Start: 05-12-2024 End: 10-23-2024 take 1 tablet by mouth every eight hours as needed for nausea ondansetron (ZOFRAN-ODT) 4 MG disintegrating tablet Dissolve 1 (one) tablet (4 mg total) on top of tongue every 8 (eight) hours as needed for nausea . 20 tablet 05/12/2024 10/23/2024 Discontinued pantoprazole 40 mg delayed release oral tablet (9 sources) Proton Pump Inhibitor Start: 11-20-2024 End: 11-20-2025 take 1 tablet by mouth once daily pantoprazole (PROTONIX) 40 MG tablet Indications: Gastroesophageal reflux disease, unspecified whether esophagitis present Take 1 (one) tablet (40 mg total) by mouth daily . 30 tablet 11/20/2024 11/20/2025 Active polyethylene glycol 3350 55445 mg powder for oral solution (3 sources) Osmotic Laxative Start: 11-20-2024 End: 12-18-2024 polyethylene glycol (MIRALAX) 17 gram powder Indications: Constipation, unspecified constipation type Take 17 (seventeen) g by mouth daily . 14 packet 1 11/20/2024 12/18/2024 Active microencapsulated potassium chloride 20 meq extended release oral tablet (1 source) Start: 10-08-2024 20 mEq, oral, Daily, First dose on Sun10/08/24 at 1015, Best given with food and plenty of water to minimize gastric irritation. Do not crush or chew. predniSONE 50 mg oral tablet (1 source) Start: 09-12-2022 End: 09-18-2022 take 1 tablet by mouth once daily at mealtime predniSONE 50 mg oral tablet ; 1 tab(s) orally once a day Quantity: 7 Refills: 0 Ordered: 12-Sep-2022 Marley Lugo Start: 12-Sep-2022 End: 18-Sep-2022 Generic Substitution Allowed Comments: It is very important that you take or use this exactly as directed. Do not skip doses or discontinue unless directed by your doctor.Obtain medical advice before taking any non-prescription drugs as some may affect the action of this medication.Take with food or milk. Comment on above: It is very important that you take or use this exactly as directed. Do not skip doses or discontinue unless directed by your doctor.Obtain medical advice before taking any non-prescription drugs as some may affect the action of this medication.Take with food or milk. QUEtiapine 50 mg oral tablet (3 sources) Atypical Antipsychotic Start: 10-23-2024 End: 11-22-2024 take 1 tablet by mouth once daily QUEtiapine (SEROQUEL) 50 MG tablet Indications: Mood disorder Take 1 (one) tablet (50 mg total) by mouth nightly . 30 tablet 10/23/2024 10/30/2024 Discontinued (Therapy completed) Start: 11-23-2016 End: 01-09-2017 take 25 mg by mouth three times daily Quetiapine Discontinued 25 MG PO THREE TIMES A DAY 90 November 23, 2016 12:00am January 09, 2017 5:25pm Completed/Discontinued Medications Medication Drug Class(es) Dates Sig (Normalized) Sig (Original) acetaminophen 325 mg oral tablet (1 source) Start: 12-11-2018 End: 12-16-2018 take 1 tablet by mouth every four hours as needed acetaminophen (TYLENOL) tablet 650 mg aluminum chloride 200 mg/ml topical solution (3 sources) Start: 01-20-2025 aluminum chloride (DRYSOL) 20 % external solution Indications: Hyperhidrosis Apply topically nightly ; once excessive sweating has stopped, may reduce to 1-2 times weekly as needed . 60 mL 1 01/20/2025 Active aluminum hydroxide 40 mg/ml / magnesium hydroxide 40 mg/ml / simethicone 4 mg/ml oral suspension (1 source) Start: 12-11-2018 End: 12-16-2018 take 30 mL by mouth every four hours as needed aluminum-magnesium hydroxide-simethic one (MAALOX PLUS) 200-200-20 mg/5 mL suspension 30 mL amitriptyline hydrochloride 100 mg oral tablet (1 source) Tricyclic Antidepressant Start: 11-21-2016 End: 11-24-2016 take 100 mg by mouth at bedtime Amitriptyline Discontinued 100 MG PO AT BEDTIME November 21, 2016 12:00am November 24, 2016 5:01pm bacitracin 0.4 unt/mg / neomycin 0.0035 mg/mg / polymyxin b 5 unt/mg topical ointment (1 source) Aminoglycoside Antibacterial, Polymyxin-class Antibacterial Start: 12-11-2018 End: 12-16-2018 neomycin-bacitraci n-polymyxin (NEOSPORIN) ointment betamethasone 0.5 mg/ml / clotrimazole 10 mg/ml topical cream (4 sources) Azole Antifungal, Corticosteroid Start: 03-11-2024 End: 03-11-2025 clotrimazole-betam ethasone (LOTRISONE) cream Apply topically 2 (two) times a day . 30 g 03/11/2024 10/23/2024 Discontinued brexpiprazole 2 mg oral tablet (1 source) Atypical Antipsychotic Start: 11-26-2018 End: 12-16-2018 take 1 tablet by mouth once daily REXULTI 2 mg Tab Take 2 mg by mouth daily . 2 11/26/2018 12/16/2018 Discontinued (Stop Taking at Discharge) 12 hr buPROPion hydrochloride 150 mg extended release oral tablet (1 source) Aminoketone End: 12-16-2018 take 1 tablet by mouth twice daily buPROPion (WELLBUTRIN SR, ZYBAN) 150 MG 12 hr tablet Indications: pt unsure of dosage Take by mouth 2 (two) times a day Reasons: pt unsure of dosage. 0 12/16/2018 Discontinued (Stop Taking at Discharge) DULoxetine 30 mg delayed release oral capsule (4 sources) Serotonin and Norepinephrine Reuptake Inhibitor Start: 12-17-2018 End: 05-07-2023 take 1 capsule by mouth once daily DULoxetine (CYMBALTA) 30 MG capsule Take 1 (one) capsule (30 mg total) by mouth daily Start: 12/17/18. 30 capsule 0 12/17/2018 05/07/2023 Discontinued Start: 12-11-2018 End: 01-16-2019 take 1 capsule by mouth once daily DULoxetine (CYMBALTA) 30 MG capsule Take 1 (one) capsule (30 mg total) by mouth daily Start: 12/17/18. 30 capsule 0 12/17/2018 01/16/2019 Active famotidine 20 mg oral tablet (4 sources) Histamine-2 Receptor Antagonist Start: 05-12-2024 End: 10-23-2024 take 1 tablet by mouth twice daily famotidine (PEPCID) 20 MG tablet Take 1 (one) tablet (20 mg total) by mouth 2 (two) times a day . 60 tablet 05/12/2024 10/23/2024 Discontinued hydrocortisone 10 mg/ml topical cream (1 source) Corticosteroid Start: 12-15-2018 End: 12-15-2018 hydrocortisone 1 % cream hydrOXYzine (19 sources) Antihistamine Start: 12-11-2018 End: 12-16-2018 take 1 tablet by mouth every six hours as needed hydrOXYzine (ATARAX) tablet 50 mg take 1 capsule by [facility] three times daily as needed for anxiety hydrOXYzine (VISTARIL) 25 MG capsule Cesar e 1 (one) capsule (25 mg total) by mouth 3 (three) times a day as needed for anxiety . Active 1 ml ketorolac tromethamine 30 mg/ml injection (1 source) Nonsteroidal Anti-inflammatory Drug, Cyclooxygenase Inhibitor Start: 10-08-2024 End: 10-08-2024 15 mg, intravenous, Once, On Sun10/08/24 at 0920, For 1 dose 24 hr levomilnacipran 40 mg extended release oral capsule (1 source) Serotonin and Norepinephrine Reuptake Inhibitor Start: 11-26-2018 End: 12-16-2018 take 40 mg by mouth once daily FETZIMA 40 mg Cs24 Take 40 mg by mouth daily . 2 11/26/2018 12/16/2018 Discontinued (Stop Taking at Discharge) magnesium hydroxide 80 mg/ml oral suspension (1 source) Start: 12-11-2018 End: 12-16-2018 magnesium hydroxide (MOM) 400 mg/5 mL suspension 2,400 mg naproxen 500 mg oral tablet (1 source) Nonsteroidal Anti-inflammatory Drug Start: 11-26-2018 take 1 tablet by mouth every twelve hours as needed naproxen (NAPROSYN) 500 mg tablet Take 1 tablet by mouth twice daily as needed (PAIN). TAKE WITH FOOD 28 tablet 0 11/26/2018 Active Comment on above: Take 1 tablet by fouzia twice daily as needed (PAIN). TAKE WITH FOOD prazosin 2 mg oral capsule (6 sources) alpha-Adrenergic Christi Start: 12-15-2018 End: 05-07-2023 take 1 capsule by mouth once daily prazosin (MINIPRESS) 2 MG capsule Take 1 (one) capsule (2 mg total) by mouth nightly . 30 capsule 0 12/16/2018 05/07/2023 Discontinued Start: 11-20-2018 End: 12-16-2018 take 1 capsule by mouth twice daily prazosin (MINIPRESS) 1 MG capsule Take 1 mg by mouth 2 (two) times a day . 2 11/20/2018 12/16/2018 Discontinued (Stop Taking at Discharge) 1000 ml sodium chloride 9 mg/ml injection (1 source) Start: 10-08-2024 End: 10-08-2024 1,000 mL, intravenous, at 999 mL/hr, Administer over 1 Hours, Once, On Sun10/08/24 at 0920, For 1 dose traZODone hydrochloride 50 mg oral tablet (2 sources) Serotonin Reuptake Inhibitor Start: 12-11-2018 End: 12-16-2018 traZODone (DESYREL) tablet 50 mg Start: 11-21-2016 End: 11-24-2016 take 150 mg by mouth at bedtime Trazodone Discontinued 150 MG PO AT BEDTIME November 21, 2016 12:00am November 24, 2016 5:01pm ziprasidone 20 mg oral capsule (1 source) Atypical Antipsychotic Start: 12-11-2018 End: 12-16-2018 ziprasidone (GEODON) capsule 20 mg ziprasidone (GEODON) injection 20 mg (1 source) Start: 12-11-2018 End: 12-16-2018 ziprasidone (GEODON) injection 20 mg Problems Active Problems Problem Classification Problem Date Documented Da te Episodic/Chronic Anxiety disorders (20 sources) Anxiety disorder, unspecified; Translations: [Generalized anxiety disorder] Onset: 9 10-30-2024 Chronic Contraceptive and procreative management (1 source) Patient encounter status; Translations: [Encounter for removal of intrauterine contraceptive device] 01-07-2024 Episodic Epilepsy; convulsions (2 sources) Seizure 04-06-2022 Episodic Comment on above: SEIZURE Esophageal disorders (2 sources) Gastroesophageal reflux disease; Translations: [Gastro-esophageal reflux disease without esophagitis] 11-20-2024 Chronic Headache; including migraine (20 sources) Transformed migraine; Translations: [Chronic migraine with aura without status migrainosus, not intractable] Onset: 3 05-08-2023 Chronic Intracranial injury (1 source) Concussion with loss of consciousness of 30 minutes or less, initial encounter; Translations: [Concussion with loss of consciousness of 30 minutes or less, initial encounter] Onset: 8 Episodic Mood disorders (20 sources) Depressive disorder; Translations: [Severe recurrent major depression without psychotic features] Onset: 9 Resolved: 5 12-11-2018 Chronic Other aftercare (2 sources) Other terminal worker (current) drug therapy; Translations: [Other halfway (current) drug therapy] Onset: 5 Episodic Other connective tissue disease (1 source) Tenosynovitis of thumb; Translations: [Other tenosynovitis of hand and wrist] 09-12-2022 Episodic Other connective tissue disease (1 source) Synovitis and tenosynovitis, unspecified; Translations: [Synovitis and tenosynovitis, unspecified] Onset: 3 Episodic Other connective tissue disease (1 source) Pain in left finger(s); Translations: [Pain in left finger(s)] Onset: 3 Episodic Other connective tissue disease (1 source) Pain in left hand; Translations: [Pain in left hand] Onset: 3 Episodic Other gastrointestinal disorders (2 sources) Diarrhea; Translations: [Diarrhea, unspecified] 10-08-2024 Episodic Other gastrointestinal disorders (2 sources) Diarrhea, unspecified; Translations: [Diarrhea, unspecified] Onset: 5 Episodic Other gastrointestinal disorders (2 sources) Constipation; Translations: [Constipation, unspecified] 11-20-2024 Episodic Other skin disorders (3 sources) Hyperhidrosis; Translations: [Generalized hyperhidrosis] Onset: 5 01-19-2025 Episodic Other upper respiratory infections (2 sources) Acute upper respiratory infection, unspecified; Translations: [Acute upper respiratory infection, unspecified] Onset: 4 Episodic Poisoning by other medications and drugs (2 sources) Poisoning by insulin and oral hypoglycemic [antidiabetic] drugs, accidental (unintentional), initial encounter; Translations: [POISON INSULIN ORAL HG RX ACC INIT] Onset: 9 Residual codes; unclassified (2 sources) Family history of malignant neoplasm of ovary; Translations: [Family history of malignant neoplasm of ovary] Onset: 5 09-24-2024 Episodic Residual codes; unclassified (1 source) Family history of malignant neoplasm of ovary; Translations: [Family history of malignant neoplasm of ovary] Onset: 5 Episodic Residual codes; unclassified (2 sources) Family history of malignant neoplasm of breast; Translations: [Family history of malignant neoplasm of breast] Onset: 4 Episodic Substance-related disorders (20 sources) Stimulant abuse; Translations: [Drug abuse] Onset: 9 12-11-2018 Chronic Unclassified (1 source) Unknown / UNK(Unknown) Onset: 8 Unclassified (1 source) COVID-19 viremia 04-07-2022 Unclassified (2 sources) LEFT HAND PAIN 09-12-2022 Comment on above: LEFT HAND PAIN Unclassified (1 source) Tenosynovitis of thumb 09-12-2022 Unclassified (1 source) Opioid use, unspecified, in remission; Translations: [Opioid use, unspecified, in remission] Onset: 3 Unclassified (1 source) Elevation of levels of liver transaminase levels; Translations: [Elevation of levels of liver transaminase levels] Onset: 5 Unclassified (1 source) Chronic migraine with aura, not intractable, without status migrainosus; Translations: [Chronic migraine with aura, not intractable, without status migrainosus] Onset: 3 Viral infection (5 sources) Viremia, unspecified; Translations: [Viral disease] Onset: 5 04-07-2022 Episodic Viral infection (3 sources) COVID-19; Translations: [COVID-19] Onset: 2 Past or Other Problems Problem Classification Problem Date Documented Da te Episodic/Chronic Abdominal pain (5 sources) Unspecified abdominal pain; Translations: [Right lower quadrant pain] Onset: 05-21-2007 05-21-2007 Episodic Administrative/social admission (18 sources) Patient care statuses; Translations: [Encounter for nonprocreative genetic counseling] Onset: 09-24-2024 09-24-2024 Episodic Allergic reactions (20 sources) 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; Translations: [Allergy to other foods] Onset: 05-08-2023 05-07-2023 Episodic Anxiety disorders (3 sources) Feeling irritable; Translations: [Irritability and anger] Onset: 01-15-2025 01-15-2025 Episodic Cardiac dysrhythmias (3 sources) Tachycardia; Translations: [Tachycardia, unspecified] Onset: 04-07-2022 04-07-2022 Episodic Conditions associated with dizziness or vertigo (2 sources) Dizziness and giddiness; Translations: [DIZZINESS AND GIDDINESS] Onset: 09-24-2018 Episodic Fever of unknown origin (4 sources) Fever; Translations: [Fever, unspecified] Onset: 04-07-2022 04-07-2022 Episodic Fluid and electrolyte disorders (10 sources) Dehydration; Translations: [Dehydration] Onset: 04-07-2022 04-07-2022 Episodic Gastritis and duodenitis (2 sources) Gastritis, unspecified, without bleeding; Translations: [Gastritis, unspecified, without bleeding] Onset: 11-20-2024 Episodic Headache; including migraine (2 sources) Headache; Translations: [HEADACHE] Onset: 06-12-2018 Episodic Immunizations and screening for infectious disease (3 sources) Exposure to Hepatitis C virus; Translations: [Contact with and (suspected) exposure to viral hepatitis] Onset: 10-23-2024 10-23-2024 Episodic Menstrual disorders (20 sources) Break-through bleeding; Translations: [Excessive and frequent menstruation with irregular cycle] Onset: 12-13-2023 Resolved: 10-23-2024 12-13-2023 Chronic Mood disorders (20 sources) Mood disorders Onset: 10-23-2024 Resolved: 11-20-2024 10-23-2024 Other aftercare (13 sources) Long-term current use of antipsychotic medication; Translations: [Other terminal worker (current) drug therapy] Onset: 10-30-2024 10-30-2024 Episodic Other connective tissue disease (20 sources) Fibromyalgia; Translations: [Fibromyalgia] Onset: 12-13-2018 12-13-2018 Episodic Other gastrointestinal disorders (4 sources) Constipation, unspecified; Translations: [Constipation, unspecified] Onset: 05-12-2024 Episodic Other liver diseases (15 sources) Enzyme level - finding; Translations: [Transaminitis] Onset: 10-23-2024 10-23-2024 Episodic Other nutritional; endocrine; and metabolic disorders (1 source) Anorexia; Translations: [Anorexia] Onset: 04-07-2022 Episodic Other screening for suspected conditions (not mental disorders or infectious disease) (7 sources) Encounter for screening for malignant neoplasm of cervix; Translations: [Patient encounter status] Onset: 03-21-2023 10-23-2024 Episodic Other skin disorders (4 sources) Rash and other nonspecific skin eruption;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 acid amplification test for the detection and discrimination of Influenza A & B from nasopharyngeal specimens, and has been validated for use at [facility]. Negative results do not preclude Influenza A/B infections, and should not be used as the sole basis for diagnosis, treatment, or other management decisions. If Influenza A/B and RSV PCR results are negative, testing for Parainfluenza virus, Adenovirus and Metapneumovirus is routinely performed for [facility] pediatric oncology and intensive care inpatients, and is available on other patients by placing an add-on request. [facility] FLUAV RNA ERNESTO+probe Ql (Resp) Not detected Normal Not Detected [facility] Comment on above: Order Comment: This assay is an in vitro diagnostic multiplex nucleic acid amplification test for the detection and discrimination of Influenza A & B from nasopharyngeal specimens, and has been validated for use at [facility]. Negative results do not preclude Influenza A/B infections, and should not be used as the sole basis for diagnosis, treatment, or other management decisions. If Influenza A/B and RSV PCR results are negative, testing for Parainfluenza virus, Adenovirus and Metapneumovirus is routinely performed for [facility] pediatric oncology and intensive care inpatients, and is available on other patients by placing an add-on request. Performed By: #### 4 8509-4 #### NATHAN YANES ([id number]) [facility] ([facility]) [address] [place], [place] [phone] FLUBV RNA RENESTO+probe Ql (Resp) Not detected Normal Not Detected [facility] Comment on above: Order Comment: This assay is an in vitro diagnostic multiplex nucleic acid amplification test for the detection and discrimination of Influenza A & B from nasopharyngeal specimens, and has been validated for use at [facility]. Negative results do not preclude Influenza A/B infections, and should not be used as the sole basis for diagnosis, treatment, or other management decisions. If Influenza A/B and RSV PCR results are negative, testing for Parainfluenza virus, Adenovirus and Metapneumovirus is routinely performed for [facility] pediatric oncology and intensive care inpatients, and is available on other patients by placing an add-on request. Performed By: #### 4 8509-4 #### NATHAN YANES ([id number]) [facility] ([facility]) [address] [place] [address] HCG.beta subunit Qnon 2024 Interpretation and review of laboratory results Normal [facility] Total HCG measuremen t is performed using the Kev Infot[employer] Access Immunoassay which detects intact HCG and free beta HCG subunit. This test is not indicated for use as a tumor marker. HCG testing is performed using a different test methodology at [facility] than other [facility]. Direct result comparison should only be made within the same method. [facility] Lipaseon 10-08-2024 Lipase [Catalytic activity/Vol] 23 U/L 9 - 82 U/L [facility] Lipase [Catalytic activity/V ol]on 10-08-2024 Interpretation and review of laboratory results Normal [facility] Venipuncture immedia tely after or during the administration of Metamizole may lead to falsely low results. Testing should be performed immediately prior to Metamizole dosing. [facility] Magnesiumon 10-08-2024 Magnesium [Mass/Vol] 2.08 mg/dL 1.60 - 2.40 mg/dL [facility] Magnesium [Mass/Vol] 2.08 mg/dL Normal 1.60-2.40 [facility] Comment on above: Performed By: #### 1 9123-9 #### NATHAN YANES ([id number]) [facility] ([facility]) [address] [place] [address] Magnesium [Mass/Vol]on 10-08 Interpretation and review of laboratory results Normal [facility] No Panel Informationon 10-08 Interpretation and review of laboratory results Normal [facility] SARS coronavirus 2 RNAon SARS-CoV-2 (COVID-19) RNA ERNESTO+probe Ql (Resp) Not detected Normal Not Detected [facility] Comment on above: Order Comment: This assay is an FDA-cleared, in vitro diagnostic nucleic acid amplification test for the qualitative detection and differentiation of SARS CoV-2 from nasopharyngeal specimens collected from individuals with signs and symptoms of respiratory tract infections, and has been validated for use at [facility]. Negative results do not preclude COVID-19 infections and should not be used as the sole basis for diagnosis, treatment, or other management decisions. Testing for SARS CoV-2 is recommended only for patients who meet current clinical and/or epidemiological criteria defined by federal, state, or local public health directives. Performed By: #### 9 4500-6 #### EVANS FARZANA ([id number]) [facility] ([facility]) [facility] [place] [address] SARS-CoV-2 (COVID-19) RNA NA A+probe Ql (Resp)on 10-08-2024 This assay is an FDA-cleared, in vitro diagnostic nucleic acid amplification test for the qualitative detection and differentiation of SARS CoV-2 from nasopharyngeal specimens collected from individuals with signs and symptoms of respiratory tract infections, and has been validated for use at [facility]. Negative results do not preclude COVID-19 infections and should not be used as the sole basis for diagnosis, treatment, or other management decisions. Testing for SARS CoV-2 is recommended only for patients who meet current clinical and/or epidemiological criteria defined by federal, state, or local public health directives. [facility] Sars-CoV-2 PCRon 10-08-2024 SARS-CoV-2 (COVID-19) RNA ERNESTO+probe Ql (Resp) Not detected Not Detected [facility] Triacylglycerol lipaseon Lipase [Catalytic activity/Vol] 23 U/L Normal 9-82 [facility] Comment on above: Order Comment: Venip uncture immediately after or during the administration of Metamizole may lead to falsely low results. Testing should be performed immediately prior to Metamizole dosing. Performed By: #### 3 040-3 #### NATHAN YANES ([id number]) [facility] ([facility]) [address] [place] [address] Urinalysis complete W Reflex Culture panel (U)on 10-08-2024 Bacteria Auto (Urine sed) [#/Area] 1+ Abnormal NONE SEEN /HPF [facility] Work Phone: Epithelial cells.squamous Auto (Urine sed) [#/Area] 1-9 (SPARSE) Reference range not established . /HPF [facility] Work Phone: Interpretation and review of laboratory results Abnormal [facility] Work Phone: Mucus Auto (Urine sed) [#/Area] 1+ Reference range not established . /LPF [facility] Work Phone: RBC Auto (Urine sed) [#/Area] 3-5 NONE, 1-2, 3-5 /HPF [facility] Work Phone: WBC Auto (Urine sed) [#/Area] NONE 1-5, NONE /HPF [facility] Work Phone: [facility] Work Phone: Appearance (U) Clear Normal Clear [facility] Comment on above: Performed By: #### 5 8077-9 #### NATHAN YANES ([id number]) [facility] ([facility]) [address] [place] [address] Bacteria Auto (Urine sed) [#/Area] 1+ /HPF Abnormal NONE SEEN [facility] Comment on above: Performed By: #### 5 8077-9 #### NATHAN YANES ([id number]) [facility] ([facility]) [address] [place] [address] Bilirubin (U) [Mass/Vol] Negative Normal NEGATIVE [facility] Comment on above: Performed By: #### 5 8077-9 #### NATHAN YANES ([id number]) [facility] ([facility]) [address] [place] [address] Color (U) Yellow Normal Light-Yello w, Yellow, Dark-Yellow [facility] Comment on above: Performed By: #### 5 8077-9 #### NATHAN YANES ([id number]) [facility] ([facility]) [address] [place] [address] Epithelial cells.squamous Auto (Urine sed) [#/Area] 1-9 (SPARSE) Normal Reference range not established . [facility] Comment on above: Performed By: #### 5 8077-9 #### NATHAN YANES ([id number]) [facility] ([facility]) [address] [place] [address] Glucose Auto test strip (U) [Mass/Vol] Normal Normal Normal [facility] Comment on above: Performed By: #### 5 8077-9 #### NATHAN YANES ([id number]) [facility] ([facility]) [address] [place] [address] Ketones (U) [Mass/Vol] 60 (2+) Abnormal NEGATIVE [facility] Comment on above: Performed By: #### 5 8077-9 #### NATHAN YANES ([id number]) [facility] ([facility]) [address] [place] [address] Leukocyte esterase Auto test strip Ql (U) Negative Normal NEGATIVE [facility] Comment on above: Performed By: #### 5 8077-9 #### NATHAN YANES ([id number]) [facility] ([facility]) [address] [place] [address] Mucus Auto (Urine sed) [#/Area] 1+ /LPF Normal Reference range not established . [facility] Comment on above: Performed By: #### 5 8077-9 #### NATHAN YANES ([id number]) [facility] ([facility]) [address] [place] [address] Nitrite Auto test strip Ql (U) Negative Normal NEGATIVE [facility] Comment on above: Performed By: #### 5 8077-9 #### NATHAN YANES ([id number]) [facility] ([facility]) [address] [place] [address] 78[address] pH (U) 6.0 [pH] Normal 5.0, 5.5, 6.0, 6.5, 7.0, 7.5, 8.0 [facility] Comment on above: Performed By: #### 5 8077-9 #### NATHAN YANES ([id number]) [facility] ([facility]) [address] [place] [address] Protein (U) [Mass/Vol] 20 (TRACE) Normal NEGATIVE, 10 (TRACE), 20 (TRACE) [facility] Comment on above: Performed By: #### 5 8077-9 #### NATHAN YANES ([id number]) [facility] ([facility]) [address] [place] [address] RBC (U) [#/Vol] 0.03 (TRACE) Abnormal NEGATIVE [facility] Comment on above: Performed By: #### 5 8077-9 #### NATHAN YANES ([id number]) [facility] ([facility]) [address] [place] [address] 08655 RBC Auto (Urine sed) [#/Area] 3-5 Normal NONE, 1-2, 3-5 [facility] Comment on above: Performed By: #### 5 8077-9 #### NATHAN YANES ([id number]) [facility] ([facility]) [address] [place] [address] Specific gravity (U) [Rel density] 1.023 Normal 1.005-1.035 [facility] Comment on above: Performed By: #### 5 8077-9 #### NATHAN YANES ([id number]) [facility] ([facility]) [address] [place] [address] Urobilinogen (U) [Mass/Vol] 2 (1+) Abnormal Normal [facility] Comment on above: Result Comment: Due to a manufacturing issue, low positive urobilinogen results may be falsely positive. Correlate with urine bilirubin and additional clinical/laboratory findings to assess the risk of hemolytic anemia or liver disease. If clinically indicated, repeat testing with an alternate method is available by contacting the laboratory within 24 hours. Some pigments and medications may cause a false positive urobilinogen. Performed By: #### 5 8077-9 #### NATHAN YANES ([id number]) [facility] ([facility]) [address] [place] [address] 047[address] WBC Auto (Urine sed) [#/Area] NONE Normal 1-5, NONE [facility] Comment on above: Performed By: #### 5 8077-9 #### NATHAN YANES ([id number]) [facility] ([facility]) [address] [place] [address]57 Urinalysis complete W Reflex Culture panel (U)Ordered By: Ely Alves on 10-08-2024 Appearance (U) Clear Clear [facility] Bilirubin (U) [Mass/Vol] Negative NEGATIVE mg/dL [facility] Color (U) Yellow Light-Yello w, Yellow, Dark-Yellow [facility] Glucose Auto test strip (U) [Mass/Vol] Normal Normal mg/dL [facility] Interpretation and review of laboratory results Abnormal [facility] Ketones (U) [Mass/Vol] 60 (2+) Abnormal NEGATIVE mg/dL [facility] Leukocyte esterase Auto test strip Ql (U) Negative NEGATIVE [facility] Nitrite Auto test strip Ql (U) Negative NEGATIVE [facility] pH (U) 6 [pH] 5.0, 5.5, 6.0, 6.5, 7.0, 7.5, 8.0 [facility] Protein (U) [Mass/Vol] 20 (TRACE) NEGATIVE, 10 (TRACE), 20 (TRACE) mg/dL [facility] RBC (U) [#/Vol] 0.03 (TRACE) Abnormal NEGATIVE mg/dL [facility] Specific gravity (U) [Rel density] 1.023 1.005 - 1.035 [facility] Urobilinogen (U) [Mass/Vol] 2 (1+) Abnormal Normal mg/dL [facility] Comment on above: Due to a manufacturi ng issue, low positive urobilinogen results may be falsely positive. Correlate with urine bilirubin and additional clinical/laboratory findings to assess the risk of hemolytic anemia or liver disease. If clinically indicated, repeat testing with an alternate method is available by contacting the laboratory within 24 hours. Some pigments and medications may cause a false positive urobilinogen. [facility] hCG, quantitative, on 10-08-2024 HCG.beta subunit Qn NINF [facility] COVID-19, MOLECULARon 2024 SARS-CoV-2 (COVID-19) Ab IA Ql Detected Abnormal Not Detected [facility] Comment on above: Result Comment: Test ing was performed using the Nur ID NOW COVID-19 assay on the ID NOW platform. This test has not been approved for use in asymptomatic patients and its performance in this patient population has not been evaluated. Negative results do not rule out the presence of SARS-CoV-2/COVID-19. ED Prov Noteon 09-06-2024 ED Prov Note ED PROVIDER NOTE [facility] NAME: Shae Harris AGE: 34 y.o. : 1990 VISIT DATE: 09/06/2024 CSN: [id number] PCP: Nigel To DO Chief Complaint Patient presents with Cough Nasal Congestion Fever Chief complaint cough congestion History of present illness 34-year-old female here with a 2 to 3-day history of cough congestion myalgias fevers arrives here with a blood pressure 1 3497 pulse 131 respiratory rate 16 temp 95 Past Medical History: Diagnosis Date Agoraphobia with panic attacks Anxiety Depression Fibromyalgia PTSD (post-traumatic stress disorder) Severe episode of recurrent major depressive disorder, without psychotic features (HCC) 12/11/2018 Stimulant use disorder 12/11/2018 Past Surgical History: Procedure Laterality Date SECTION SECTION 2014 ORTHOPEDIC SURGERY left radial plate and screws TONSILLECTOMY WRIST FRACTURE SURGERY Left No family history on file. Social History Socioeconomic History Marital status: Tobacco Use Smoking status: Former Current packs/day: 0.50 Average packs/day: 0.5 packs/day for 15.0 years (7.5 ttl pk-yrs) Types: Cigarettes Smokeless tobacco: Never Vaping Use Vaping status: Every Day Substances: Nicotine Substance and Sexual Activity Alcohol use: Not Currently Drug use: Not Currently Types: Methamphetamines, IV Comment: last use 3 days ago. Pt states rarely uses. Sexual activity: Yes Partners: Male control/protection: I.U.D. Social History Narrative Merged History Encounter Previous Medications Medication Sig clotrimazole-betamethasone (LOTRISONE) cream Apply topically 2 (two) times a day . famotidine (PEPCID) 20 MG tablet Take 1 (one) tablet (20 mg total) by mouth 2 (two) times a day . gabapentin (NEURONTIN) 600 MG tablet Take 1 (one) tablet (600 mg total) by mouth 3 (three) times a day . hydrOXYzine (VISTARIL) 25 MG capsule Take 1 (one) capsule (25 mg total) by mouth 3 (three) times a day as needed for anxiety . ondansetron (ZOFRAN-ODT) 4 MG disintegrating tablet Dissolve 1 (one) tablet (4 mg total) on top of tongue every 8 (eight) hours as needed for nausea . Allergies Allergen Reactions Hazelnut Anaphylaxis Cabbage Unknown Food Extracts Unknown Other Unknown Tree Nuts Unknown Review of Systems All other systems reviewed and are negative. Patient Vitals for the past 24 hrs: BP Temp Temp src Pulse Resp SpO2 Height Weight 09/06/24 1430 (!) 134/97 98.5 degrees F (36.9 degrees C) Oral (!) 131 16 98 % 5' 4 74.8 kg (165 lb) Physical Exam Vitals and nursing note reviewed. Exam conducted with a head of integrated media present. Constitutional: Appearance: She is ill-appearing. HENT: Head: Normocephalic and atraumatic. Nose: Rhinorrhea present. Mouth/Throat: Pharynx: Posterior oropharyngeal erythema present. Eyes: Extraocular Movements: Extraocular movements intact. Pupils: Pupils are equal, round, and reactive to light. Cardiovascular: Rate and Rhythm: Normal rate and regular rhythm. Pulmonary: Effort: Pulmonary effort is normal. Breath sounds: Normal breath sounds. Skin: General: Skin is warm. Capillary Refill: Capillary refill takes less than 2 seconds. Neurological: Mental Status: She is alert. Laboratory & Radiographic Imaging (if done): Results for orders placed or performed during the hospital encounter of 09/06/24 COVID-19, Molecular Specimen: Swab Result Value Ref Range SARS-CoV-2 Detected (A) Not Detected POC Influenza A/B Result Value Ref Range POC Rapid Influenza A Ag Not Detected Not Detected POC Influenza B Ag Not Detected Not Detected No orders to display Procedures Medical Decision Making Differential diagnosis COVID Flu Breann a Influenza B Viral syndrome Upper respiratory infection Considering the above influenza swab was done COVID Amount and/or Complexity of Data Reviewed Labs: ordered. Decision-making details documented in ED Course. Details: COVID swab was positive Clinical Impression: 1. COVID ED Disposition ED Disposition Discharge Condition Stable Comment Shae Harris discharged to home/self care in stable condition. Follow-up Information 1. Nigel To DO. Specialties: Family Medicine, Family Medicine Hospitalist [address] [address] Contact information for after-discharge care Follow-up information has not been specified. New Prescriptions methylPREDNISolone (MEDROL DOSEPACK) 4 mg tablet Follow package directions . levoFLOXacin (LEVAQUIN) 500 MG tablet Take 1 (one) tablet (500 mg total) by mouth daily for 7 days . guaiFENesin (MUCINEX) 600 mg 12 hr tablet Take 1 (one) tablet (600 mg total) by mouth every 12 (twelve) hours . Lovely Dalton MD 09/06/24 1532 AUTHENTICATED BY LOVELY DALTON, ON 09/06/2024 15:32:[address] [facility] POC INFLUENZA A/B - RALSon 0 09-06-2024 POC INFLUENZA A (FSED) Not detected Normal Not Detected [facility] POC INFLUENZA B (FSED) Not detected Normal Not Detected [facility] COVID-19, MOLECULARon 2023 SARS-CoV-2 (COVID-19) Ab IA Ql Not detected Normal Not Detected [facility] Comment on above: Result Comment: Test ing was performed using the Nur ID NOW COVID-19 assay on the ID NOW platform. This test has not been approved for use in asymptomatic patients and its performance in this patient population has not been evaluated. Negative results do not rule out the presence of SARS-CoV-2/COVID-19. ED Prov Noteon 07-21-2024 ED Prov Note ED PROVIDER NOTE [facility] EMERGENCY DEPARTMENT NAME: Shae Harris AGE: 34 y.o. : 1990 VISIT DATE: 07/21/2024 CSN: [id number] PCP: Nigel To DO Chief Complaint Patient presents with URI Sore Throat The patient presented to the emergency room with complaint she has cough and congestion for 3 days, headache and body ache, mild sore throat, bilateral ear aches, not feeling well in general, she has no wheezing, no GI symptoms URI Presenting symptoms: sore throat Sore Throat Past Medical History: Diagnosis Date Agoraphobia with panic attacks Anxiety Depression Fibromyalgia PTSD (post-traumatic stress disorder) Severe episode of recurrent major depressive disorder, without psychotic features ([facility]) 12/11/2018 Stimulant use disorder 12/11/2018 Past Surgical History: Procedure Laterality Date SECTION SECTION 2013 ORTHOPEDIC SURGERY left radial plate and screws TONSILLECTOMY WRIST FRACTURE SURGERY Left History reviewed. No pertinent family history. Social History Socioeconomic History Marital status: Tobacco Use Smoking status: Former Current packs/day: 0.50 Average packs/day: 0.5 packs/day for 15.0 years (7.5 ttl pk-yrs) Types: Cigarettes Smokeless tobacco: Never Vaping Use Vaping status: Every Day Substances: Nicotine Substance and Sexual Activity Alcohol use: Not Currently Drug use: Not Currently Types: Methamphetamines, IV Comment: last use 3 days ago. Pt states rarely uses. Sexual activity: Yes Partners: Male control/protection: I.U.D. Social History Narrative Merged History Encounter Previous Medications Medication Sig clotrimazole-betamethasone (LOTRISONE) cream Apply topically 2 (two) times a day . famotidine (PEPCID) 20 MG tablet Take 1 (one) tablet (20 mg total) by mouth 2 (two) times a day . gabapentin (NEURONTIN) 600 MG tablet Take 1 (one) tablet (600 mg total) by mouth 3 (three) times a day . hydrOXYzine (VISTARIL) 25 MG capsule Take 1 (one) capsule (25 mg total) by mouth 3 (three) times a day as needed for anxiety . ondansetron (ZOFRAN-ODT) 4 MG disintegrating tablet Dissolve 1 (one) tablet (4 mg total) on top of tongue every 8 (eight) hours as needed for nausea . Allergies Allergen Reactions Hazelnut Anaphylaxis Cabbage Unknown Food Extracts Unknown Other Unknown Tree Nuts Unknown Review of Systems HENT: Positive for sore throat. All other systems reviewed and are negative. Patient Vitals for the past 24 hrs: BP Temp Pulse Resp SpO2 Height Weight 07/21/24 1024 136/74 97.6 degrees F (36.4 degrees C) (!) 106 18 97 % 5' 4 70.3 kg (155 lb) Physical Exam Vitals and nursing note reviewed. Constitutional: General: She is not in acute distress. HENT: Head: Normocephalic. Eyes: Extraocular Movements: Extraocular movements intact. Musculoskeletal: General: Normal range of motion. Cervical back: Neck supple. Pulmonary: Effort: Pulmonary effort is normal. No respiratory distress. Skin: General: Skin is warm. Neurological: General: No focal deficit present. Mental Status: She is alert and oriented to person, place, and time. Laboratory & Radiographic Imaging (if done): Results for orders placed or performed during the hospital encounter of 07/21/24 COVID-19, Molecular Specimen: Swab Result Value Ref Range SARS-CoV-2 Not Detected Not Detected POC Strep A - Molecular Result Value Ref Range Strep A Screen Negative Negative POC Influenza A/B Result Value Ref Range POC Rapid Influenza A Ag Not Detected Not Detected POC Influenza B Ag Not Detected Not Detected No orders to display Procedures Medical Decision Making The patient presented with upper respiratory symptoms for 3 days, her swabs for strep COVID and flu are all negative, explained to the patient upper respiratory viral infection, prescribed Phenergan DM and instructed about [id number] medications, oral hydration and follow-up with PCP Problems Addressed: Viral URI with cough: acute illness or injury Amount and/or Complexity of Data Reviewed Labs: ordered. Decision-making details documented in ED Course. The patient has been informed that they may have pre-hypertension or hypertension based on a blood pressure reading in the Emergency Department. I recommend that the patient call the primary care provider listed on their discharge instructions or a physician of their choice as soon as possible to arrange follow-up in the next 4 weeks for further evaluation of possible pre-hypertension or hypertension. . Clinical Impression: 1. Viral URI with cough ED Disposition ED Disposition Discharge Condition Stable Comment Shae Harris discharged to home/self care in stable condition. Follow-up Information 1. Nigel To DO. Specialties: Family Medicine, Family Medicine Hospitalist 1 (more content not included)... Normal [facility] POC INFLUENZA A/B - RALSon 1 09-21-2023 POC INFLUENZA A (FSED) Not detected Normal Not Detected [facility] POC INFLUENZA B (FSED) Not detected Normal Not Detected [facility] POC STREP A - MOLECULAR RALS on 07-21-2024 POC STREP A SCREEN Negative Normal Negative [facility] CT ABDOMEN PELVIS WITH IV CO NTRAST ONLYon 05-12-2024 CT ABDOMEN PELVIS WITH IV CONTRAST ONLY EXAMINATION: CT ABDOMEN PELVIS WITH IV CONTRAST ONLY HISTORY: ORDERING SYSTEM PROVIDED HISTORY: RUQ abdominal pain, TECHNOLOGIST PROVIDED HISTORY: Illness/Other Reason for exam: RUQ pain xx 2 weeks Encounter Type: Initial Additional signs and symptoms: no ORDERING SYSTEM PROVIDED DIAGNOSIS CODES: COMPARISON: None TECHNIQUE: CT examination of the abdomen and pelvis following the administration of intravenous contrast. Coronal and sagittal reformations were performed. Dose reduction techniques were achieved by using automated exposure control and/or adjustment of mA and/or kV according to patient size and/or use of iterative reconstruction technique. CONTRAST: IOPAMIDOL 370 MG IODINE/ML (76 %) INTRAVENOUS SOLUTION - 75 mL, FINDINGS: LOWER CHEST: Normal. ABDOMEN: Liver: Normal. Bile ducts: Normal caliber. Gallbladder: Partially contracted. Pancreas: Normal. Spleen: Normal. Adrenals: Normal. Kidneys: Normal. PELVIS: Reproductive organs: No suspicious pelvic mass. Nonspecific heterogeneous enhancement of the right ovary. No appendicitis. Ureters: Normal. Bladder: Suboptimally distended with mild wall thickening. OTHER ABDOMEN AND PELVIS: Bowel: Moderate colonic stool burden. No bowel obstruction. Peritoneum: No free intraperitoneal air. Small amount of free fluid in the pelvis. Vessels: Normal. Lymph nodes: No enlarged lymph nodes. Abdominal wall: Normal. Osseous structures: No destructive lesions. IMPRESSION: Moderate diffuse colonic stool burden, compatible with constipation. No bowel obstruction. No appendicitis. No obstructive uropathy. / Workstation ID: [id number] Dictated by: SUMIT BAE on SunMay 12, 2024 1:47:15 PM EDT Transcribed by: MARY KENT on SunMay 12, 2024 1:54:20 PM EDT Finalized by: SUMIT BAE on SunMay 12, 2024 10:01:[address] [facility] Comment on above: Order Comment: Injur y/Trauma or Illness?:Illness/OtherHow long have you had these symptoms (acute/chronic)?:AcuteReason for exam?:RUQ pain xx 2 weeksType of Exam?:InitialAdditional signs and symptoms?:no ED Prov Noteon 05-12-2024 ED Prov Note [facility] Physician Note: NAME: Shae Harris 34 y.o. CSN: [id number] PCP: Nigel To, DO ED Course / Medical Decision Making: Patient comes in with epigastric and right upper quadrant abdominal discomfort she has had this for 3 weeks.. She has normal vital signs. She is tender in right upper quadrant. Lab work CBC chemistries LFTs amylase were all normal. Urinalysis did not show any signs of UTI and test was negative. CT abdomen and pelvis with IV contrast read by radiology as constipation no acute pathology. Patient still could have gallstones she may need a right upper quadrant ultrasound. She may need an endoscopy if symptoms persist. Patient started on Pepcid and Zofran. She was given MiraLAX for the constipation. Patient to follow-up with primary care. If worsening symptoms come back to the ER. Patient understands discharge and follow-up instructions comfortable going home. Medical Decision Making Amount and/or Complexity of Data Reviewed Independent Historian: Details: Patient gave history Labs: Details: Reviewed Radiology: Details: Reviewed Clinical Impression: 1. Epigastric pain 2. Constipation, unspecified constipation type Disposition: Patient is being discharged to home New Prescriptions polyethylene glycol (MIRALAX) 17 gram powder Take 17 (seventeen) g by mouth daily for 15 days . famotidine (PEPCID) 20 MG tablet Take 1 (one) tablet (20 mg total) by mouth 2 (two) times a day . ondansetron (ZOFRAN-ODT) 4 MG disintegrating tablet Dissolve 1 (one) tablet (4 mg total) on top of tongue every 8 (eight) hours as needed for nausea . History: Chief Complaint: Abdominal Pain HPI: The history was obtained from the patient. She is a 34 y.o. female who presents with a chief complaint of Abdominal Pain. HPI patient comes in with upper abdominal pain epigastric right upper quadrant for over 3 weeks. She states it comes and goes. She has slight nausea at times with it. She denies any vomiting. She has no diarrhea or constipation. She has no fever. She denies urinary symptoms. She has no chest pain or shortness of breath. I asked her what was different today that made her come to the ER and she states her said just to get it checked out today. She took some Naprosyn around 4 AM which did not help. Last menstrual period was 2 weeks ago PMHx: Past Medical History: Diagnosis Date Agoraphobia with panic attacks Anxiety Depression Fibromyalgia PTSD (post-traumatic stress disorder) Severe episode of recurrent major depressive disorder, without psychotic features ([facility]) 12/11/2018 Stimulant use disorder 12/11/2018 PMSx: Past Surgical History: Procedure Laterality Date SECTION SECTION 2013 ORTHOPEDIC SURGERY left radial plate and screws TONSILLECTOMY WRIST FRACTURE SURGERY Left FAM. Hx: History reviewed. No pertinent family history. SOC. Hx: Social History Socioeconomic History Marital status: Tobacco Use Smoking status: Former Current packs/day: 0.50 Average packs/day: 0.5 packs/day for 15.0 years (7.5 ttl pk-yrs) Types: Cigarettes Smokeless tobacco: Never Vaping Use Vaping status: Every Day Substances: Nicotine Substance and Sexual Activity Alcohol use: Not Currently Drug use: Not Currently Types: Methamphetamines, IV Comment: last use 3 days ago. Pt states rarely uses. Sexual activity: Yes Partners: Male control/protection: I.U.D. Social History Narrative Merged History Encounter MEDs: Previous Medications Medication Sig gabapentin (NEURONTIN) 600 MG tablet Take 1 (one) tablet (600 mg total) by mouth 3 (three) times a day . clotrimazole-betamethasone (LOTRISONE) cream Apply topically 2 (two) times a day . hydrOXYzine (VISTARIL) 25 MG capsule Take 1 (one) capsule (25 mg total) by mouth 3 (three) times a day as needed for anxiety . ALL: Allergies Allergen Reactions Hazelnut Anaphylaxis Cabbage Unknown Food Extracts Unknown Other Unknown Tree Nuts Unknown ROS: Review of Systems Constitutional: Negative. HENT: Negative. Eyes: Negative. Respiratory: Negative. Cardiovascular: Negative. Gastrointestinal: Positive for abdominal pain and nausea. Negative for abdominal distention, anal bleeding, blood in stool, constipation, diarrhea, rectal pain and vomiting. Endocrine: Negative. Genitourinary: Negative. Musculoskeletal: Negative. Skin: Negative. Allergic/Immunologic: Negative. Neurological: Negative. Hematological: Negative. All other systems reviewed and are negative. Positives and pertinent negatives as per HPI. All other systems were reviewed and are negative. Physical Exam: Patient Vitals for the past 24 hrs: BP Temp Pulse Resp SpO2 Height Weight 05/12/24 1227 130/80 98 degrees F (36.7 degrees C) 85 16 99 % 5' 4 68 kg (150 lb) Physical Exam Vitals and nursing note reviewed. (more content not included)... Normal [facility] POC BASIC METABOLIC PANEL - [facility] 05-12-2024 Chloride [Moles/Vol] 106 mmol/L Normal 98-108 [facility] Comment on above: Order Comment: [facility] has implemented the eGFR calculation approach that does not have a coefficient for race that conforms to the NKF-ASN Task Force Recommendations. CO2 [Moles/Vol] 28 mmol/L Normal 21-32 [facility] Comment on above: Order Comment: [facility] has implemented the eGFR calculation approach that does not have a coefficient for race that conforms to the NKF-ASN Task Force Recommendations. Creatinine [Mass/Vol] 0.77 mg/dL Normal 0.40-1.10 [facility] Comment on above: Order Comment: [facility] has implemented the eGFR calculation approach that does not have a coefficient for race that conforms to the NKF-ASN Task Force Recommendations. Glucose [Mass/Vol] 83 mg/dL Normal 65-99 [facility] Comment on above: Order Comment: [facility] has implemented the eGFR calculation approach that does not have a coefficient for race that conforms to the NKF-ASN Task Force Recommendations. POC GFR 105 mL/min/1.73 m2 Normal >=60 [facility] Comment on above: Order Comment: [facility] has implemented the eGFR calculation approach that does not have a coefficient for race that conforms to the NKF-ASN Task Force Recommendations. Result Comment: Gagandeep mated GFR was calculated using the 2020 CKD-EPI creatinine equation. POC IONIZED CALCIUM 4.7 mg/dL Normal 4.5-5.3 [facility] Comment on above: Order Comment: [facility] has implemented the eGFR calculation approach that does not have a coefficient for race that conforms to the NKF-ASN Task Force Recommendations. Potassium [Moles/Vol] 3.8 mmol/L Normal 3.5-5.1 [facility] Comment on above: Order Comment: [facility] has implemented the eGFR calculation approach that does not have a coefficient for race that conforms to the NKF-ASN Task Force Recommendations. Sodium [Moles/Vol] 144 mmol/L Normal 135-145 [facility] Comment on above: Order Comment: [facility] has implemented the eGFR calculation approach that does not have a coefficient for race that conforms to the NKF-ASN Task Force Recommendations. Urea nitrogen [Mass/Vol] 12 mg/dL Normal 8-25 [facility] Comment on above: Order Comment: [facility] has implemented the eGFR calculation approach that does not have a coefficient for race that conforms to the NKF-ASN Task Force Recommendations. POC CBC AND DIFFERENTIALon BASOPHILS ABSOLUTE COUNT 0.03 K/mcL Normal 0.00-0.30 [facility] Basophils/100 WBC (Bld) 0.4 % Normal [facility] Eosinophils (Bld) [#/Vol] 0.18 10*3/uL Normal 0.00-0.50 [facility] Eosinophils/100 WBC (Bld) 2.5 % Normal [facility] Erythrocyte distribution width (RBC) [Ratio] 12.1 % Normal 11.6-14.8 [facility] Hematocrit (Bld) [Volume fraction] 43.1 % Normal 36.0-46.0 [facility] Hemoglobin (Bld) [Mass/Vol] 14.5 g/dL Normal 12.0-16.0 [facility] IG ABSOLUTE 0.01 K/mcL Normal 0.00-0.30 [facility] IG PERCENT 0.10 % Normal [facility] Comment on above: Result Comment: The IG parameter is the percentage of metamyelocytes, myelocytes and promyelocytes. An immature granulocyte count (IG) of 1% or more suggests the possibility of infection, an IG count of 3% is very likely related to an infection. Lymphocytes (Bld) [#/Vol] 2.43 10*3/uL Normal 0.90-4.00 [facility] Lymphocytes/100 WBC (Bld) 33.5 % Normal [facility] MCH (RBC) [Entitic mass] 32.5 pg Normal 26.0-34.0 [facility] MCV (RBC) [Entitic vol] 96.6 fL Normal 80.0-100.0 [facility] MEAN CORPUSCULAR HEMOGLOBIN CONC 33.6 g/dL Normal 31.0-37.0 [facility] Monocytes (Bld) [#/Vol] 0.45 10*3/uL Normal 0.30-0.90 [facility] Monocytes/100 WBC (Bld) 6.2 % Normal [facility] NEUTROPHILS ABSOLUTE COUNT 4.15 K/mcL Normal 1.70-7.00 [facility] Neutrophils/100 WBC (Bld) 57.3 % Normal [facility] Platelet mean volume (Bld) [Entitic vol] 10.1 fL Normal 9.4-12.4 [facility] Platelets (Bld) [#/Vol] 263 10*3/uL Normal 150-400 [facility] RBC (Bld) [#/Vol] 4.46 10*6/uL Normal 4.00-5.20 [facility] WBC (Bld) [#/Vol] 7.25 10*3/uL Normal 4.50-11.00 [facility] Albumin [Mass/Vol] 4.2 g/dL Normal 3.2-5.2 [facility] ALP [Catalytic activity/Vol] 101 U/L Normal 40-140 [facility] ALT [Catalytic activity/Vol] 6 U/L Normal 0-40 [facility] Amylase [Catalytic activity/Vol] 68 U/L Normal 25-115 [facility] Amylase [Catalytic activity/Vol] 11 U/L Normal 7-33 [facility] AST [Catalytic activity/Vol] 26 U/L Normal 0-45 [facility] Bilirubin [Mass/Vol] 0.6 mg/dL Normal 0.0-1.3 [facility] Protein [Mass/Vol] 7.3 g/dL Normal 6.0-8.0 [facility] POC , [facility] - [facility] 05-12-2024 Beta HCG ( test) Ql (U) Negative Normal Negative [facility] Comment on above: Order Comment: Negat jacek: Dilute urine specimens, as indicated by a low specific gravity (<1.010) may not contain representitive levels of hCG. If is still suspected, a serum test or repeat urine test using a first morning urine specimen should be considered. POC URINALYSIS DIPSTICK,EDGAR - Phan 05-12-2024 POC BILIRUBIN, URINE Negative Normal Negative [facility] POC BLOOD, URINE Negative Normal Negative [facility] POC GLUCOSE, URINE Negative Normal Negative [facility] POC KETONES, URINE Trace Abnormal Negative [facility] POC LEUKOCYTE ESTERASE, URINE Negative Normal Negative [facility] POC NITRITE, URINE Negative Normal Negative [facility] POC PH, URINE 7.0 Normal 5.0-7.0 [facility] POC SPECIFIC GRAVITY 1.025 Normal 1.005-1.025 [facility] POC UROBILINOGEN 1.0 mg/dL Normal < 2.0 [facility] Protein (U) [Mass/Vol] 30 mg/dL Abnormal Negative [facility] ED Prov Noteon 03-11-2024 ED Prov Note HPI: 03/11/2024, Time: @NOWNR@ Shae Harris is a 33 y.o. female presenting to the ED for itchy faint red rash to left side and right side of body and forearms, beginning last few weeks ago. The complaint has been constant, moderate in severity, and worsened by nothing. No fever or chills or difficulty swallowing or breathing ROS: Pertinent positives and negatives are stated within HPI, all other systems reviewed and are negative. PAST HISTORY Past Medical History: @[facility]@ Past Surgical History: has a past surgical history that includes orthopedic surgery; Section; Section (2014); tonsillectomy; and Wrist fracture surgery (Left). Social History: reports that she has quit smoking. Her smoking use included cigarettes. She has a 7.5 pack-year smoking history. She has never used smokeless tobacco. She reports that she does not currently use alcohol. She reports that she does not currently use drugs after having used the following drugs: Methamphetamines and IV. Family History: family history is not on file. The patient's home medications have been reviewed. Allergies: Hazelnut, Cabbage, Food extracts, Other, and Tree nuts RESULTS All laboratory and radiology results have been personally reviewed by myself LABS: Results for orders placed or performed during the hospital encounter of 06/10/23 COVID-19, Molecular Specimen: Nasopharyngeal; Swab Result Value Ref Range SARS-CoV-2 Detected (A) Not Detected POC Strep A - Molecular Result Value Ref Range Strep A Screen Negative Negative POC Influenza A/B Result Value Ref Range POC Rapid Influenza A Ag Not Detected Not Detected POC Influenza B Ag Not Detected Not Detected RADIOLOGY: Interpreted by Radiologist. No orders to display NURSING NOTES AND VITALS REVIEWED - The nursing notes within the ED encounter and vital signs as below have been reviewed. BP 122/87 (BP Location: Right arm, Patient Position: Sitting) Pulse 66 Temp 97.7 degrees F (36.5 degrees C) (Oral) Resp 16 Ht 5' 4 Wt 71.7 kg (158 lb) SpO2 98% BMI 27.12 kg/m Oxygen Saturation Interpretation: Normal P HYSICAL EXAM Constitutional/General: Alert and oriented x3, well appearing, non toxic in NAD Head: NC/AT Eyes: PERRL, EOMI Mouth: Oropharynx clear, handling secretions, no trismus Neck: Supple, full ROM, no meningeal signs Pulmonary: Lungs clear to auscultation bilaterally, no wheezes, rales, or rhonchi. Not in respiratory distress Cardiovascular: Regular rate and rhythm, no murmurs, gallops, or rubs. 2+ distal pulses Abdomen: Soft, non tender, non distended, Extremities: Moves all extremities x 4. Warm and well perfused Skin: warm and dry scattered faint red rash with slight circular pattern on left side resembling tinea rash also consistent with contact dermatitis Neurologic: GCS 15, Psych: Normal Affect ---- ED COURSE/MEDICAL DECISION MAKING -- Medications - No data to display Medical Decision Making: Will start patient on combined steroid and antifungal Counseling: The emergency provider has spoken with the patient and discussed today's results, in addition to providing specific details for the plan of care and counseling regarding the diagnosis and prognosis. Questions are answered at this time and they are agreeable with the plan. ------- IMPRESSION AND DISPOSITION ------- IMPRESSION 1. Rash DISPOSITION Disposition: discharged to home Patient condition is stable Summation Patient Course: Stable ED Medications administered this visit: Medications - No data to display New Prescriptions from this visit: New Prescriptions clotrimazole-betamethasone (LOTRISONE) cream Apply topically 2 (two) times a day . Follow-up: Nigel To, DO [address] [id number] In 1 week Final Impression: 1. Rash (Please note that portions of this note were completed with a voice recognition program. Efforts were made to edit the dictations but occasionally words are mis-transcribed.) Paul Arora MD 03/11/24 1216 AUTHENTICATED BY CECELIA CRUZ 03/11/2024 12:16:07 [facility] Cervical or vagninal specime n microscopic examination by cytology stain (reported asOrdered By: Natalie Chaparro on 03-21-2023 Cytology report Cyto stain Doc (Cvx/Vag) Comment . [facility] Comment on above: The Pap smear is a s creening test designed to aid in thedetection of premalignant and malignant conditions of theuterine cervix. It is not a diagnostic procedure andshould not be used as the sole means of detecting cervicalcancer. Both false-positive and false-negative reports dooccur. Detection in cervical specim en of any of human papilloma virus (HPV) 16, 18, 31, 33,Ordered By: Natalie Chaparro on 03-21-2023 HPV 16+18+31+33+35+39+45 +51+52+56+58+59+66+6 8 DNA Probe+sig amp Ql (Cvx) Negative Negative [facility] Comment on above: This nucleic acid am plification test detects fourteen high- risk HPV types (16,18,31,33,35,39,45,51,52,56,58,59,66,68)without differentiation. Laboratory - CytologyOrdered By: Natalie Chaparro on 03-21-2023 Truck Assembler Cyto stain Nom (Cvx/Vag) [ID] Comment . [facility] Comment on above: Aidee Lee, Cyto technologist (ASCP) Laboratory - Miscellaneous t estsOrdered By: Natalie Chaparro on 03-21-2023 Service comment (Unsp spec) [Interp] Comment . [facility] Comment on above: This liquid based Th inPrep(R) pap test was screened withthe use of an image guided system. Service comment (Unsp spec) [Interp] . . [facility] Liquid-based cerv Pap + CT/G C by ERNESTO w reflex to high-risk HPV for ASCUSOrdered By: Natalie Chaparro on 03-21-2023 Cytology report Cyto stain.thin prep Doc (Cvx/Vag) Comment . [facility] Comment on above: Criteria not met, HP V Genotype not performed.Performed at: [facility] [address] [place] [id number] Director: Nano Saleh MD, Phone: [phone] at: =G - [facility] [address] [place] [id number] Director: Nano Saleh MD, Phone: [phone] No Panel InformationOrdered By: Natalie Chaparro on 03-21-2023 Pathology report final diagnosis Narrative Comment . [facility] Comment on above: NEGATIVE FOR INTRAEP ITHELIAL LESION OR MALIGNANCY. Fibrosureon 02-13-2023 Alpha2 Macroglobulin 156 mg/dL Normal 110-270 [facility] ([place]) Comment on above: Result Comment: Perf ormed By: [facility] [address] [place] [address] Motor Carrier Inspector: Fletcher Jesus III, M.D. CLIA#: [id number] Performed By: #### H CQPCR #### [facility] [address] [place] [address] ALT [Catalytic activity/Vol] 5 U/L Low 10-35 [facility] ([place]) Comment on above: Result Comment: The FibroTest-ActiTest is an algorithmic test developed and patented by [employer]. Testing is compliant with their technical recommendations. The reliability of results is dependent on compliance with the preanalytical and analytical conditions recommended by [employer]. The tests have to be deferred for: acute hemolysis, acute hepatitis, acute inflammation, extra hepatic cholestasis. The advice of a specialist should be sought for interpretation in chronic hemolysis and Gilbert's syndrome. The test interpretation is not validated in liver transplant patients. Isolated extreme values of one of the components should lead to caution in interpreting the results. In case of discordance between a biopsy result and a test, it is recommended to seek advice of a specialist. The causes of these discordances could be due to a flaw of the test or to a flaw in the biopsy: i.e. a liver biopsy has a 33% variability rate for one fibrosis stage. FibroTest is interpretable for chronic hepatitis B and C, alcoholic and non alcoholic steatosis. ActiTest is interpretable for chronic hepatitis B and C. This test was developed and its performance characteristics determined by [facility] [place] ([facility]). It has not been cleared or approved by the FDA. [facility] is regulated under CLIA as qualified to perform high-complexity testing. This test is used for clinical purposes. It should not be regarded as investigational or for research. Performed By: [place] [address] Motor Carrier Inspector: Fletcher Jesus III, M.D. CLIA#: [id number] Performed By: #### H CQPCR #### [address] [address] Apolipoprotein A1 140 mg/dL Normal >124 [facility] ([place]) Comment on above: Result Comment: Perf ormed By: [place] [address] Motor Carrier Inspector: Fletcher Jesus III, M.D. CLIA#: [id number] Performed By: #### H CQPCR #### [address] [address] Bilirubin [Mass/Vol] 0.6 mg/dL Normal 0.2-1.3 [facility] ([place]) Comment on above: Result Comment: Perf ormed By: [place] [address] Motor Carrier Inspector: Fletcher Jesus III, M.D. CLIA#: [id number] Performed By: #### H CQPCR #### [address] [address] Fibrosis Interp No Fibrosis Normal [facility] ([place]) Comment on above: Result Comment: Fibr osis Interpretation Table: FibroTest Score: >=0 and <=0.21 - Metavir Score: F0 No Fibrosis FibroTest Score: >0.21 and <=0.27 - Metavir Score: F0-F1 No Fibrosis FibroTest Score: >0.27 and <=0.31 - Metavir Score: F1 Minimal Fibrosis FibroTest Score: >0.31 and <=0.48 - Metavir Score: F1-F2 Minimal Fibrosis FibroTest Score: >0.48 and <=0.58- Metavir Score: F2 Moderate Fibrosis FibroTest Score: >0.58 and <=0.72 - Metavir Score: F3 Advanced Fibrosis FibroTest Score: >0.72 and <=0.74 - Metavir Score: F3-F4 Advanced Fibrosis FibroTest Score: >0.74 and <=1.00- Metavir Score: F4 Severe Fibrosis Performed By: [place] [address] Motor Carrier Inspector: Fletcher Jesus III, M.D. CLIA#: [id number] Performed By: #### H CQPCR #### [place] [address] Fibrosis Score 0.07 Normal [facility] ([place]) Comment on above: Result Comment: Perf ormed By: [place] [address] Motor Carrier Inspector: Fletcher Jesus III, M.D. CLIA#: [id number] Performed By: #### H CQPCR #### [place] [address] Fibrosis Stage F0 Normal [facility] ([place]) Comment on above: Result Comment: Perf ormed By: [place] [address] Motor Carrier Inspector: Fletcher Jesus III, M.D. CLIA#: [id number] Performed By: #### H CQPCR #### [address] [address] GGT Lvl 9 U/L Normal 6-42 [facility] ([place]) Comment on above: Result Comment: Perf ormed By: [place] [address] Motor Carrier Inspector: Fletcher Jesus III, M.D. CLIA#: [id number] Performed By: #### H CQPCR #### [address] [address] Haptoglobin Lvl 88 mg/dL Normal 31-238 [facility] ([place]) Comment on above: Result Comment: Perf ormed By: [place] [address] Motor Carrier Inspector: Fletcher Jesus III, M.D. CLIA#: [id number] Performed By: #### H CQPCR #### [address] [address] NecroinflamAct Grade A0 Normal [facility] ([place]) Comment on above: Result Comment: Perf ormed By: [place] [id number] [place] [id number] Motor Carrier Inspector: Fletcher Jesus III, M.D. CLIA#: [id number] Performed By: #### H CQPCR #### [place] [address] NecroinflamAct Score 0.01 Normal [facility] ([place]) Comment on above: Result Comment: Perf ormed By: [facility] [address] [place], [place] [id number] Motor Carrier Inspector: Fletcher Jesus III, M.D. CLIA#: [id number] Performed By: #### H CQPCR #### [place] [address] Necroinflamm Interp No Activity Normal [facility] ([place]) Comment on above: Result Comment: Necr oinflammatory Activity Interpretation Table: ActiTest Score: >=0 and <=0.17 - Metavir Score: A0 No activity ActiTest Score: >0.17 and <=0.29 - Metavir Score: A0-A1 No activity ActiTest Score: >0.29 and <=0.36 - Metavir Score: A1 Minimal activity ActiTest Score: >0.36 and <=0.52 - Metavir Score: A1-A2 Minimal activity ActiTest Score: >0.52 and <=0.60 - Metavir Score: A2 Significant activity ActiTest Score: >0.60 and <=0.62 - Metavir Score: A2-A3 Significant activity ActiTest Score: >0.62 and <=1.00 - Metavir Score: A3 Severe activity Performed By: [facility] [place] [address] Motor Carrier Inspector: Fletcher Jesus III, M.D. CLIA#: [id number] Performed By: #### H CQPCR #### [place] [address] HCQPCRon 02-13-2023 Hepatitis C RNA Not detected Normal See Comment [facility] ([place]) Comment on above: Result Comment: The Linear Range of this assay is 15 IU/ml to 100,000,000 IU/ml Performed By: [facility] [address] [place] [address] Motor Carrier Inspector: Chilango Hudson IIIIA#: [id number] Reference Range: HCV RNA not detected by PCR. Performed By: #### H CQPCR #### [address] [address] TCANCon 02-13-2023 Test cancelled: HCGEN Normal [facility] ([place]) Comment on above: Performed By: #### T CANC #### [place] [address] .Auto Diffon 02-08-2023 Basophil, Absolute 0.0 10 3/mcL Normal 0.0-0.3 [facility] ([place]) Comment on above: Performed By: #### A DIFF, ANEU, LIVFIB, CMP, CBC, GFR, PRO, HBSAG, HIV, HBSAB #### [place] [address] Basophils/100 WBC (Bld) 0.7 % Normal 0.0-2.5 [facility] ([place]) Comment on above: Performed By: #### A DIFF, ANEU, LIVFIB, CMP, CBC, GFR, PRO, HBSAG, HIV, HBSAB #### [address] [address] Eosinophil, Absolute 0.2 10 3/mcL Normal 0.0-0.7 [facility] ([place]) Comment on above: Performed By: #### A DIFF, ANEU, LIVFIB, CMP, CBC, GFR, PRO, HBSAG, HIV, HBSAB #### [address] [address] Eosinophils/100 WBC (Bld) 2.7 % Normal 0.0-6.0 [facility] ([place]) Comment on above: Performed By: #### A DIFF, ANEU, LIVFIB, CMP, CBC, GFR, PRO, HBSAG, HIV, HBSAB #### [place] [id number] Lymphocyte, Absolute 2.0 10 3/mcL Normal 0.9-4.3 [facility] ([place]) Comment on above: Performed By: #### A DIFF, ANEU, LIVFIB, CMP, CBC, GFR, PRO, HBSAG, HIV, HBSAB #### [address] [address] Lymphocytes/100 WBC (Bld) 34.5 % Normal 20.0-40.0 [facility] ([place]) Comment on above: Performed By: #### A DIFF, ANEU, LIVFIB, CMP, CBC, GFR, PRO, HBSAG, HIV, HBSAB #### [address] [address] Monocyte, Absolute 0.4 10 3/mcL Normal 0.1-1.4 [facility] ([place]) Comment on above: Performed By: #### A DIFF, ANEU, LIVFIB, CMP, CBC, GFR, PRO, HBSAG, HIV, HBSAB #### [address] [address] Monocytes/100 WBC (Bld) 7.5 % Normal 2.0-13.0 [facility] ([place]) Comment on above: Performed By: #### A DIFF, ANEU, LIVFIB, CMP, CBC, GFR, PRO, HBSAG, HIV, HBSAB #### [address] [address] Neutrophils/100 WBC (Bld) 54.6 % Normal 50.0-75.0 [facility] ([place]) Comment on above: Performed By: #### A DIFF, ANEU, LIVFIB, CMP, CBC, GFR, PRO, HBSAG, HIV, HBSAB #### [address] [address] .GFRon 02-08-2023 GFR Non- >60 Normal [facility] ([place]) Comment on above: Result Comment: GFR Population mean for , Non- Americans Ages 20-29 = 116 mL/min/1.73 sq.m. Ages 30-39 = 107 mL/min/1.73 sq.m. Ages 40-49 = 99 mL/min/1.73 sq.m. Ages 50-59 = 93 mL/min/1.73 sq.m. Ages 60-69 = 85 mL/min/1.73 sq.m. Ages 70+ = 75 mL/min/1.73 sq.m. Chronic Kidney Disease: Less than 60 mL/min/1.73 square meters End Stage Renal Disease: Less than 15 mL/min/1.73 square meters Performed By: #### A DIFF, ANEU, LIVFIB, CMP, CBC, GFR, PRO, HBSAG, HIV, HBSAB #### [address] [address] GFR >60 Normal [facility] ([place]) Comment on above: Result Comment: GFR Population mean for , Non- Americans Ages 20-29 = 116 mL/min/1.73 sq.m. Ages 30-39 = 107 mL/min/1.73 sq.m. Ages 40-49 = 99 mL/min/1.73 sq.m. Ages 50-59 = 93 mL/min/1.73 sq.m. Ages 60-69 = 85 mL/min/1.73 sq.m. Ages 70+ = 75 mL/min/1.73 sq.m. Chronic Kidney Disease: Less than 60 mL/min/1.73 square meters End Stage Renal Disease: Less than 15 mL/min/1.73 square meters Performed By: #### A DIFF, ANEU, LIVFIB, CMP, CBC, GFR, PRO, HBSAG, HIV, HBSAB #### [address] [address] .NEUABSon 02-08-2023 Neutrophil, Absolute 3.2 10 3/mcL Normal 2.3-8.1 [facility] ([place]) Comment on above: Performed By: #### A DIFF, ANEU, LIVFIB, CMP, CBC, GFR, PRO, HBSAG, HIV, HBSAB #### [address] [address] CBCon 02-08-2023 Erythrocyte distribution width (RBC) [Ratio] 12.6 % Normal 11.5-15.5 [facility] ([place]) Comment on above: Performed By: #### A DIFF, ANEU, LIVFIB, CMP, CBC, GFR, PRO, HBSAG, HIV, HBSAB #### [address] [address] Hematocrit (Bld) [Volume fraction] 43.6 % Normal 34.0-46.0 [facility] ([place]) Comment on above: Performed By: #### A DIFF, ANEU, LIVFIB, CMP, CBC, GFR, PRO, HBSAG, HIV, HBSAB #### [place] [address] Hgb 14.6 G/dL Normal 12.0-16.0 [facility] ([place]) Comment on above: Performed By: #### A DIFF, ANEU, LIVFIB, CMP, CBC, GFR, PRO, HBSAG, HIV, HBSAB #### [place] [address] MCH (RBC) [Entitic mass] 32.8 pg Normal 27.0-33.0 [facility] ([place]) Comment on above: Performed By: #### A DIFF, ANEU, LIVFIB, CMP, CBC, GFR, PRO, HBSAG, HIV, HBSAB #### [place] [address] MCHC 33.4 G/dL Normal 32.0-36.0 [facility] ([place]) Comment on above: Performed By: #### A DIFF, ANEU, LIVFIB, CMP, CBC, GFR, PRO, HBSAG, HIV, HBSAB #### [place] [address] MCV (RBC) [Entitic vol] 98.1 fL Normal 80.0-99.0 [facility] ([place]) Comment on above: Performed By: #### A DIFF, ANEU, LIVFIB, CMP, CBC, GFR, PRO, HBSAG, HIV, HBSAB #### [place] [address] Platelet 240 10 3/mcL Normal 150-450 [facility] ([place]) Comment on above: Performed By: #### A DIFF, ANEU, LIVFIB, CMP, CBC, GFR, PRO, HBSAG, HIV, HBSAB #### [place] [address] Platelet mean volume (Bld) [Entitic vol] 9.4 fL Normal 6.6-10.5 [facility] ([place]) Comment on above: Performed By: #### A DIFF, ANEU, LIVFIB, CMP, CBC, GFR, PRO, HBSAG, HIV, HBSAB #### [address] [address] RBC 4.44 10 6/mcL Normal 4.10-5.30 [facility] ([place]) Comment on above: Performed By: #### A DIFF, ANEU, LIVFIB, CMP, CBC, GFR, PRO, HBSAG, HIV, HBSAB #### [place] [id number] WBC 5.9 10 3/mcL Normal 4.5-10.8 [facility] ([place]) Comment on above: Performed By: #### A DIFF, ANEU, LIVFIB, CMP, CBC, GFR, PRO, HBSAG, HIV, HBSAB #### [address] [address] CMPon 02-08-2023 Albumin Level 4.4 G/dL Normal 3.2-4.8 [facility] ([place]) Comment on above: Performed By: #### A DIFF, ANEU, LIVFIB, CMP, CBC, GFR, PRO, HBSAG, HIV, HBSAB #### [place] [id number] Albumin/Globulin [Mass ratio] 1.9 {ratio} High 0.9-1.6 [facility] ([place]) Comment on above: Performed By: #### A DIFF, ANEU, LIVFIB, CMP, CBC, GFR, PRO, HBSAG, HIV, HBSAB #### [place] [id number] ALP [Catalytic activity/Vol] 81 U/L Normal 38-126 [facility] ([place]) Comment on above: Performed By: #### A DIFF, ANEU, LIVFIB, CMP, CBC, GFR, PRO, HBSAG, HIV, HBSAB #### [address] [address] ALT/SGPT <7 Low 10-49 [facility] ([place]) Comment on above: Performed By: #### A DIFF, ANEU, LIVFIB, CMP, CBC, GFR, PRO, HBSAG, HIV, HBSAB #### [address] [address] AST [Catalytic activity/Vol] 16 U/L Normal 8-34 [facility] ([place]) Comment on above: Performed By: #### A DIFF, ANEU, LIVFIB, CMP, CBC, GFR, PRO, HBSAG, HIV, HBSAB #### [place] [id number] Bili Total 0.60 mg/dL Normal 0.20-1.20 [facility] ([place]) Comment on above: Result Comment: Use of this assay is not recommended for patients undergoing treatment with eltrombopag due to the potential for falsely elevated results. Performed By: #### A DIFF, ANEU, LIVFIB, CMP, CBC, GFR, PRO, HBSAG, HIV, HBSAB #### [place] [address] BUN/Creatinine Ratio 10.5 ratio Normal 10.0-22.0 [facility] ([place] Comment on above: Performed By: #### A DIFF, ANEU, LIVFIB, CMP, CBC, GFR, PRO, HBSAG, HIV, HBSAB #### [place] [id number] Calcium [Mass/Vol] 9.2 mg/dL Normal 8.7-10.4 [facility] ([place]) Comment on above: Performed By: #### A DIFF, ANEU, LIVFIB, CMP, CBC, GFR, PRO, HBSAG, HIV, HBSAB #### [address] [address] Chloride [Moles/Vol] 109 mmol/L Normal 98-110 [facility] ([place] Comment on above: Performed By: #### A DIFF, ANEU, LIVFIB, CMP, CBC, GFR, PRO, HBSAG, HIV, HBSAB #### [address] [address] CO2 [Moles/Vol] 24 mmol/L Normal 22-32 [facility] ([place]) Comment on above: Performed By: #### A DIFF, ANEU, LIVFIB, CMP, CBC, GFR, PRO, HBSAG, HIV, HBSAB #### [place] [id number] Creatinine [Mass/Vol] 0.76 mg/dL Normal 0.50-1.20 [facility] ([place]) Comment on above: Performed By: #### A DIFF, ANEU, LIVFIB, CMP, CBC, GFR, PRO, HBSAG, HIV, HBSAB #### [place] [id number] Electrolyte Balance 10.0 mEq/L Normal 4.0-15.0 [facility] ([place]) Comment on above: Performed By: #### A DIFF, ANEU, LIVFIB, CMP, CBC, GFR, PRO, HBSAG, HIV, HBSAB #### [place] [id number] Globulin 2.3 G/dL Normal 1.5-3.8 [facility] ([place] Comment on above: Performed By: #### A DIFF, ANEU, LIVFIB, CMP, CBC, GFR, PRO, HBSAG, HIV, HBSAB #### [place] [id number] Glucose [Mass/Vol] 93 mg/dL Normal 70-110 [facility] ([place]) Comment on above: Performed By: #### A DIFF, ANEU, LIVFIB, CMP, CBC, GFR, PRO, HBSAG, HIV, HBSAB #### [place] [id number] Potassium [Moles/Vol] 4.2 mmol/L Normal 3.5-5.0 [facility] ([place]) Comment on above: Performed By: #### A DIFF, ANEU, LIVFIB, CMP, CBC, GFR, PRO, HBSAG, HIV, HBSAB #### [place] [id number] Sodium [Moles/Vol] 143 mmol/L Normal 136-145 [facility] ([place]) Comment on above: Performed By: #### A DIFF, ANEU, LIVFIB, CMP, CBC, GFR, PRO, HBSAG, HIV, HBSAB #### [place] [id number] Total Protein 6.7 G/dL Normal 5.7-8.2 [facility] ([place]) Comment on above: Result Comment: No te - New Reference Range in effect 20 Performed By: #### A DIFF, ANEU, LIVFIB, CMP, CBC, GFR, PRO, HBSAG, HIV, HBSAB #### [place] [address] Urea nitrogen [Mass/Vol] 8.0 mg/dL Normal 8.0-22.0 [facility] ([place]) Comment on above: Performed By: #### A DIFF, ANEU, LIVFIB, CMP, CBC, GFR, PRO, HBSAG, HIV, HBSAB #### [place] [address] HBSABon 02-08-2023 Hep B Surf Ab 200.0 mIU/mL Normal >=10.0 [facility] ([place]) Comment on above: Result Comment: 0 to < 10.0 mIU/mL Nonreactive Patient is considered not to have protective immunity to HBV infection >/= 10.0 mIU/mL Reactive Patient is considered to have protective immunity to HBV infection. This assay is traceable to the World Health Organization (WHO) Hepatitis B Immunoglobulin 1st International Reference Preparation (1976). The accepted criteria for immunity to HBV is anti-HBs activity >/= 10.0 mIU/mL, as defined by the WHO International Reference Preparation. Performed By: #### A DIFF, ANEU, LIVFIB, CMP, CBC, GFR, PRO, HBSAG, HIV, HBSAB #### [place] [address] HBSAGon 02-08-2023 Hep B Surf Ag Non-Reactive Normal Non-Reactiv [facility] ([place]) Comment on above: Performed By: #### A DIFF, ANEU, LIVFIB, CMP, CBC, GFR, PRO, HBSAG, HIV, HBSAB #### [place] [address] HIVon 02-08-2023 HIV 1/2 Ab Normal Non-Reactiv [facility] ([place] Comment on above: Result Comment: Non- Reactive Specimen is negative for anti-HIV-1 and anti-HIV-2. Performed By: #### H CQPCR #### [place] [address] LABORATORYOrdered By: SYSTEM SYSTEM on 02-08-2023 Albumin BCP dye [Mass/Vol] 4.4 G/dL Invalid Interpretation Code 3.2 - 4.8 G/dL ADM SS Albumin/Globulin [Mass ratio] 1.9 {ratio} Invalid Interpretation Code 0.9 - 1.6 ratio AH ADM SS ALP [Catalytic activity/Vol] 81 U/L Invalid Interpretation Code 38 - 126 U/L ADM SS ALT No additional P-5'-P [Catalytic activity/Vol] U/L 1 Invalid Interpretation Code 10 - 49 U/L ADM SS AST [Catalytic activity/Vol] 16 U/L Invalid Interpretation Code 8 - 34 U/L AH ADM SS Basophils (Bld) [#/Vol] 0.0 103/mcL Invalid Interpretation Code 0.0 - 0.3 10^3/mcL AH Workflow SS Basophils/100 WBC (Bld) 0.7 % Invalid Interpretation Code 0.0 - 2.5 % AH Workflow SS Bilirubin [Mass/Vol] 0.60 mg/dL Invalid Interpretation Code 0.20 - 1.20 mg/dL ADM SS Calcium [Mass/Vol] 9.2 mg/dL Invalid Interpretation Code 8.7 - 10.4 mg/dL ADM SS Chloride [Moles/Vol] 109 mmol/L Invalid Interpretation Code 98 - 110 mEq/L ADM SS CO2 [Moles/Vol] 24 mmol/L Invalid Interpretation Code 22 - 32 mEq/L ADM SS Creatinine [Mass/Vol] 0.76 mg/dL Invalid Interpretation Code 0.50 - 1.20 mg/dL AH ADM SS Electrolyte Balance 10.0 mEq/L Invalid Interpretation Code 4.0 - 15.0 mEq/L ADM SS Eosinophils (Bld) [#/Vol] 0.2 103/mcL Invalid Interpretation Code 0.0 - 0.7 10^3/mcL AH Workflow SS Eosinophils/100 WBC (Bld) 2.7 % Invalid Interpretation Code 0.0 - 6.0 % AH Workflow SS Erythrocyte distribution width (RBC) [Ratio] 12.6 % Invalid Interpretation Code 11.5 - 15.5 % AH Workflow SS GFR/1.73 sq M.predicted among blacks MDRD (S/P/Bld) [Vol rate/Area] ml/min/1.73sqm Invalid Interpretation Code Chemistry S GFR/1.73 sq M.predicted among non-blacks MDRD (S/P/Bld) [Vol rate/Area] ml/min/1.73sqm Invalid Interpretation Code Chemistry S Globulin 2.3 G/dL Invalid Interpretation Code 1.5 - 3.8 G/dL ADM SS Glucose [Mass/Vol] 93 mg/dL Invalid Interpretation Code 70 - 110 mg/dL ADM SS HBV surface Ab Qn (S) 200.0 mIU/mL Invalid Interpretation Code >=10.0mIU/m L ADM SS HBV surface Ag IA Ql Non-Reactive (02/08/23 3:37 PM) Invalid Interpretation Code Non-Reactiv e ADM SS Hematocrit (Bld) [Volume fraction] 43.6 % Invalid Interpretation Code 34.0 - 46.0 % AH Workflow SS Hemoglobin (Bld) [Mass/Vol] 14.6 G/dL Invalid Interpretation Code 12.0 - 16.0 G/dL AH Workflow SS Lymphocytes (Bld) [#/Vol] 2.0 103/mcL Invalid Interpretation Code 0.9 - 4.3 10^3/mcL AH Workflow SS Lymphocytes/100 WBC (Bld) 34.5 % Invalid Interpretation Code 20.0 - 40.0 % AH Workflow SS MCH (RBC) [Entitic mass] 32.8 pg Invalid Interpretation Code 27.0 - 33.0 pg AH Workflow SS MCHC 33.4 G/dL Invalid Interpretation Code 32.0 - 36.0 G/dL AH Workflow SS MCV (RBC) [Entitic vol] 98.1 fL Invalid Interpretation Code 80.0 - 99.0 fL AH Workflow SS Monocytes (Bld) [#/Vol] 0.4 103/mcL Invalid Interpretation Code 0.1 - 1.4 10^3/mcL Workflow SS Monocytes/100 WBC (Bld) 7.5 % Invalid Interpretation Code 2.0 - 13.0 % AH Workflow SS Neutrophils (Bld) [#/Vol] 3.2 103/mcL Invalid Interpretation Code 2.3 - 8.1 10^3/mcL AH Workflow SS Neutrophils/100 WBC (Bld) 54.6 % Invalid Interpretation Code 50.0 - 75.0 % AH Workflow SS Platelet mean volume (Bld) [Entitic vol] 9.4 fL Invalid Interpretation Code 6.6 - 10.5 fL Workflow SS Platelets (Bld) [#/Vol] 240 103/mcL Invalid Interpretation Code 150 - 450 10^3/mcL AH Workflow SS Potassium [Moles/Vol] 4.2 mmol/L Invalid Interpretation Code 3.5 - 5.0 mEq/L AH ADM SS Protein [Mass/Vol] 6.7 G/dL Invalid Interpretation Code 5.7 - 8.2 G/dL ADM SS RBC (Bld) [#/Vol] 4.44 106/mcL Invalid Interpretation Code 4.10 - 5.30 10^6/mcL AH Workflow SS Sodium [Moles/Vol] 143 mmol/L Invalid Interpretation Code 136 - 145 mEq/L ADM SS Urea nitrogen [Mass/Vol] 8.0 mg/dL Invalid Interpretation Code 8.0 - 22.0 mg/dL ADM SS Urea nitrogen/Creatinine [Mass ratio] 10.5 ratio Invalid Interpretation Code 10.0 - 22.0 ratio ADM SS WBC (Bld) [#/Vol] 5.9 103/mcL Invalid Interpretation Code 4.5 - 10.8 10^3/mcL Workflow SS LABORATORYOrdered By: Natali Graham on 02-08-2023 HIV 1+2 Ab IA Ql Negative Invalid Interpretation Code Chemistry S HIV 1/2 Ab Non-Reactive (02/08/23 3:37 PM) Invalid Interpretation Code Non-Reactiv e ADM SS LABORATORYOrdered By: Evangelina Flower on 02-08-2023 INR Coag (PPP) [Relative time] 0.9 {INR} Invalid Interpretation Code Auto Coag SS PT Coag (PPP) [Time] 10.5 s Invalid Interpretation Code 9.0 - 14.8 seconds AH Auto Coag SS PROon 02-08-2023 INR Coag (PPP) [Relative time] 0.9 {INR} Normal [facility] ([place]) Comment on above: Result Comment: The [employer] (CHEST, 1992, 102:312S-25S) recommended therapeutic range for oral anticoagulant therapy is: LOW RISK: Prophylaxis of venous thrombosis INR: 2.0-3.0 Treatment of pulmonary embolism 2.0-3.0 Prevention of systemic embolism 2.0-3.0 HIGH RISK: Mechanical prosthetic valves 2.5-3.5 Performed By: #### A DIFF, ANEU, LIVFIB, CMP, CBC, GFR, PRO, HBSAG, HIV, HBSAB #### [facility] [address] [place] [id number] PT Coag (PPP) [Time] 10.5 s Normal 9.0-14.8 [facility] ([place]) Comment on above: Result Comment: Effe ctive 02/11/08, Protime results may be affected by some antibiotics (i.e. Ciprofloxacin, Azithromycin, Bactrim) which may potentiate the action of oral anticoagulants, with further increase in Protime/INR. Performed By: #### A DIFF, ANEU, LIVFIB, CMP, CBC, GFR, PRO, HBSAG, HIV, HBSAB #### [facility] [address] [place] [id number] HAND MIN 3 VIEWSon 3 HAND MIN 3 VIEWS Patient Name: SHAE VASQUEZ STUDY: HAND MIN 3 VIEWS; Left; 09/12/2022 9:37 am INDICATION: thumb pain . COMPARISON: None. ACCESSION NUMBER(S): [id number] ORDERING CLINICIAN: MARLEY LUGO FINDINGS: PA, oblique and lateral views were obtained. There is no fracture or dislocation. Joint spaces appear intact. IMPRESSION: No acute osseous abnormality Electronically signed by: VAUGHN ALDRIDGE MD, TAYLA [facility] Provider Note - ED v3on 08-30 Provider Note - ED v3 Provider Note: Chart Review: ED NOTES ED NOTES: Source of Information: Patient. EMR was reviewed for previous records. -- --------- HPI: Left thumb pain. This 32-year-old white female presents to the ED due to complaints of left thumb pain. She states that the symptoms started earlier this morning. She states that this morning was far more severe and she was having pain rating up into her arm. Patient states that she has pain especially with extension of her thumb and feels weak as well. She is right-hand dominant. She denies any known injuries. She indicates that the pain is along the extensor pollicis longus tendon of the thumb into the wrist area. She states that rest helps to some extent. -- --------- PMH: Methamphetamine abuse, fracture left radius PSH: ORIF of left wrist child, , T&A Social Hx: The patient denies any use of tobacco, alcohol or illicit drugs. Fam: MEDS: Denies ALLERGIES: NKDA -- --------- PHYSICAL EXAM: General: Patient alert, awake, oriented X3, appears to be in no obvious distress, nontoxic, cooperative Skin: Warm. Dry. Intact. No rash. Eyes: PEARTLA, EOMIs intact, sclera white, conjunctiva clear HEENT: Atraumatic. Normo-cephalic. Oral and nasal mucosa pink and moist. Neck: Supple without meningismus, no lymphadenopathy. CV: Regular rate and rhythm without murmurs, heaves, lifts or thrills. Respiratory: Nonlabored breathing. There are no retractions or tachypnea. Lungs are clear to auscultation bilaterally. GI: Soft, nontender, without gross distention, bowel sounds present in all 4 quadrants. There is no pulsatile masses. There is no CVA tenderness. No rebound, rigidity or guarding. MUSC: Evaluation of the left upper extremity reveals distal pulses are +2/4 and present at the radial ulnar aspect of the wrist. Cap refill less than 2 seconds and light touch sensations intact. There is no obvious evidence of deformity or injury or secondary infection. Patient does have tenderness over the extensor Pollick is longus tendon of the thumb with increased discomfort along this tendon with extension of the thumb. Neuro: Cranial nerves II - XII grossly intact. No focal neurologic deficits are noted on exam. Lower extremities: There is no peripheral edema bilaterally, negative Homans sign. No palpable cords. Distal pulses are +2/4 and present in both lower extremities. Psych: Maintains eye contact. Cooperative. -- --------- ED course: Medically the patient has evidence of a tenosynovitis involving the patient's left thumb extensor pollicis longus tendon. The patient x-rays of the left hand performed these were negative for acute abnormality. The patient was treated with a preformed thumb spica splint that was applied by nursing staff. Patient was prescribed prednisone and referred to follow-up with orthopedics in next 5 to 7 days. Patient was also provided a list of primary care doctors to follow-up with. This chart was dictated with the use of [employer] software within the framework of the current electronic medical records software. Attempts were made to edit in real time, given time constraints there is the potential for inaccuracies in my dictation. Marley Lugo DO HISTORY OF PRESENTING ILLNESS SHAE is a 32 year old Female and was seen by me at 12-Sep-2022 09:10 for a chief complaint of hand pain/injury (left hand pain only with movement started during the night denies any known injury)(1). Triage Information: Most recent Vital Sign Value Date Temp (F): 98 09-12-2022 09:15 Temp (C): 36.6 09-12-2022 09:15 Heart Rate (beats/min): 96 09-12-2022 09:15 Respirations (breaths/min): 18 09-12-2022 09:15 SpO2 (%): 99 09-12-2022 09:15 BP Systolic (mm Hg): 123 09-12-2022 09:15 BP Diastolic (mm Hg): 83 09-12-2022 09:15 PAST MEDICAL HISTORY CURRENT OR FORMER SUBSTANCE USE: Tobacco/Nicotine Use: unable to assess Alcohol Use: denies Drug Use: history of abuse (Previous history of methamphetamine),ALLERGIES /INTOLERANCES: Allergy Allergen: NKDA Type: Reaction: Allergen: Nuts Type: Food Reaction: Unknown Allergen: Onions Type: Food Reaction: Unknown Allergen: Cabbage Type: Food Reaction: Unknown Allergen: Peppers Type: Food Reaction: Unknown HEALTH HISTORY: No documented data. OUTPATIENT MEDICATIONS: Home Medications Review Status for Reconciliation: Not D (more content not included)... Normal [facility] Risk Screen - Adult Emergenc yon 09-12-2022 Risk Screen - Adult Emergency Preferred Language: Preferred Language: Preferred Language for Discussing Health Care (patient/designee)Croatian Patient Preferred Pharmacy: Patient Preferred Pharmacy Statement: I have reviewed and updated the patient's preferred pharmacy selection for today's visit. Advanced Directives: Advance Directive/DNRno Family Violence Adult: Abuse Screen: Are you or have you been threatened or abused physically, emotionally, or sexually by anyoneno Learning Assessment (Patient): Learning Assessment (Patient): Patient is Able to be Assessed for Learningyes Factors Influencing Readiness to Learnacuteness of illness Factors that Impact Ability to Learnnone Devices/Methods Used to Communicatenone Learning Preferencesaudio Cultural Considerationsnone Developmental Considerationsnone Yazidi Considerationsnone Learning Assessment (Other Learner): Learning Assessment (Other Learner): Other learner availableno Pressure Injury/TB/Substance: Pressure Injury: Do you have a coughno Smoking Statusmoderate user (uses 11-30 cig/day, OR 0.5-1.5 ppd, OR 2-3 cans/pouches loose leaf tobacco per week, OR 0.5-1.5 vape pods per day) Tobacco Cessation Education (provide if tobacco use within the last 12 mos) patient declined Alcohol Usedenies Drug Usehistory of abuse Admission Risk Screen: Significant IndicatorsComplete CAGE: CAGE: Is this an injured patient at a Trauma Center (ROBERTO CARLOS/Callie/Alissa/Erin/Pattie Cruz/Nayana): no Electronic Signatures: Cherie Higgins (RONEN) (Signed 12-Sep-2022 09:21) Authored: Preferred Language, Patient Preferred Pharmacy, Advanced Directives, Family Violence Adult, Learning Assessment (Patient), Learning Assessment (Other Learner), Pressure Injury/TB/Substance, Pressure Injury, CAGE Last Updated: 12-Sep-2022 09:21 by Cherie Higgins (RONEN) [facility] Triage - EDon 09-12-2022 Triage - ED Quick Triage: Are You no Are You Currently Breastfeedingno Chart Review: ARRIVAL INFORMATION Mode of Arrival: private vehicle CHIEF COMPLAINT SHAE VASQUEZ is a Female patient with a chief complaint of hand pain/injury (left hand pain only with movement started during the night denies any known injury). Triage Date/Time: 12-Sep-2022 09:15 BRUCE: 3 Pain Rating (0-10): 8 = Severe Pain location: left hand with movement Vital Signs: Temperature: 98.0F ( 36.6C) Blood Pressure: 123/83 Mean: Heart Rate: 96 Respiratory Rate: 18 Pulse Oximetry: 99% on room air, no respiratory support. Height: 5 feet 4.00 inches. 162.5 CM Weight: 152.3 pounds. Calculated 69.1 kg. (stated) Calculated BMI (kg/m2): 26.168 Calculated BSA (m2) 1.77 Jonathan Coma Scale: Best Eye Response: (E4) spontaneous Best Motor Response: (M6) obeys commands Best Verbal Response: (V5) oriented Jonathan Score: 15 Last menstrual period: 05-Sep-2022 Patient has homicidal thoughts: no Risk Screens Suicide Risk Screen In the Past Month: Have you wished you were or wished you could go to sleep and not wake up no In the Past Month: Have you had any actual thoughts of killing yourself no In Your Lifetime: Have you ever done anything, started to do anything, or prepared to do anything to end your life no Castro Fall Scale Screening Has the patient fallen before (or is the patient in the ED as a result of a fall) has not had a fall Does the patient have an impaired gait does not have impaired gait Is the patient cognitively impaired not cognitively impaired Interventions: Castro Fall Interventions: LOW INTERVENTIONS: *patient oriented to surroundings and call system, * patient/family falls education completed and documented, *patients fall status communicated during bedside handoff, *whiteboard updated, *mode of toileting discussed with patient, *bed in low position with brakes locked, *call light in reach, * non-skid footwear TRAVEL HISTORY Travel History Coronavirus Screening: no exposure or symptoms Travel Exposure History: NO travel to International locations in the past 30 days PAIN Pain Scale Used: MAXIMO Pain Rating (0-10): 8 = Severe Past Medical History: Past Medical History Reviewedyes Electronic Signatures: Cherie Higgins (RONEN) (Signed 12-Sep-2022 09:21) Entered: Risk Screens, Pain, Travel History, Chart Review, Scores, Past Medical History Authored: Quick Triage, Risk Screens, Pain, Travel History, Chart Review, Scores, Past Medical History Last Updated: 12-Sep-2022 09:21 by Cherie Higgins) [facility] Clinical Event Note-ED Post Discharge Result Follow Up, #[place] 04-07-2022 Clinical Event Note-ED Post Discharge Result Follow Up, #Com Clinical Event: Clinical Event Note: TopicED Post Discharge Result Follow Up, #Complete; Nasal Swab: Covid-19 Details Patient covid-19 test came back positive. Patient was receiving appropriate management such as acetaminophen, ketorolac and zofran. Doctor gave instructions on care. No further follow up is needed If there are any other questions for the ED Post-Discharge Culture Follow Up Team, please contact [phone]. . Lilly Jimenez., PharmD PGY-1 Resident Pharmacy [facility] Electronic Signatures: Lilly Carlos ([facility]) (Signed 07-Apr-2022 10:18) Authored: Clinical Event Note Last Updated: 07-Apr-2022 10:18 by Lilly Carlos ([facility]) Normal [facility] DRUG SCREEN,URINEon 04-07-20 22 AMPHETAMINE SCREEN,U Negative Normal NEGATIVE [facility] Comment on above: Result Comment: CUTO FF LEVEL: 500 NG/ML Cross-reactivity has been reported with high concentrations of the following drugs: buproprion, chloroquine, chlorpromazine, ephedrine, mephentermine, fenfluramine, phentermine, phenylpropanolamine, pseudoephedrine, and propranolol. Performed By: #### D RUG3 #### [place] [address] BARBITURATES SCREEN,U Negative Normal NEGATIVE [facility] Comment on above: Result Comment: CUTO FF LEVEL: 200 NG/ML Performed By: #### D RUG3 #### [place] [address] BENZODIAZEPINES SCREEN,U Negative Normal NEGATIVE [facility] Comment on above: Result Comment: CUTO FF LEVEL: 200 NG/ML Performed By: #### D RUG3 #### [place] [address] CANNABINOIDS SCREEN,U Negative Normal NEGATIVE [facility] Comment on above: Result Comment: CUTO FF LEVEL: 50 NG/ML Performed By: #### D RUG3 #### [place] [address] COCAINE METABOLITE SCREEN,U Negative Normal NEGATIVE [facility] Comment on above: Result Comment: CUTO FF LEVEL: 150 NG/ML Performed By: #### D RUG3 #### [place] [address] DRUG SCREEN COMMENT SEE BELOW Normal [facility] Comment on above: Result Comment: Drug screen results are presumptive and should not be used to assess compliance with prescribed medication. Contact the performing [facility] laboratory to add-on definitive confirmatory testing if clinically indicated. . Toxicology screening results are reported qualitatively. The concentration must be greater than or equal to the cutoff to be reported as positive. The concentration at which the screening test can detect an individual drug or metabolite varies. The absence of expected drug(s) and/or drug metabolite(s) may indicate non-compliance, inappropriate timing of specimen collection relative to drug administration, poor drug absorption, diluted/adulterated urine, or limitations of testing. For medical purposes only; not valid for forensic use. . Interpretive questions should be directed to the laboratory medical directors. Performed By: #### D RUG3 #### [place] [address] FENTANYL SCREEN,URINE Negative Normal NEGATIVE [facility] Comment on above: Result Comment: CUTO FF LEVEL: 5 NG/ML Performed By: #### D RUG3 #### [place] [address] METHADONE SCREEN,U Negative Normal NEGATIVE [facility] Comment on above: Result Comment: CUTO FF LEVEL: 150 NG/ML The metabolite L-unsgd-zobhhzxvmpquqp (LAAM) is not detected by this method in concentrations that would be found in the urine of patients on LAAM therapy. Performed By: #### D RUG3 #### [place] [address] OPIATES SCREEN,U Negative Normal NEGATIVE [facility] Comment on above: Result Comment: CUTO FF LEVEL: 300 NG/ML The opiate screen does not detect fentanyl, meperidine, or tramadol. Oxycodone is not consistently detected (refer to Oxycodone Screen, Urine result). Performed By: #### D RUG3 #### [place] [address] OXYCODONE SCREEN,U Negative Normal NEGATIVE [facility] Comment on above: Result Comment: CUTO FF LEVEL: 100 NG/ML This test will accurately detect both oxycodone and oxymorphone. Performed By: #### D RUG3 #### [place] [address] PCP SCREEN,U Negative Normal NEGATIVE [facility] Comment on above: Result Comment: CUTO FF LEVEL: 25 NG/ML Cross-reactivity has been reported with dextromethorphan. Performed By: #### D RUG3 #### [address] [address] LACTATEon 04-07-2022 Lactate [Moles/Vol] 0.8 mmol/L Normal 0.4 - 2.0 [facility] Comment on above: Result Comment: Maddie puncture immediately after or during the administration of Metamizole may lead to falsely low results. Testing should be performed immediately prior to Metamizole dosing. Performed By: #### L ACT #### [address] [address] Provider Note - ED v3on Provider Note - ED v3 Provider Note: Chart Review: ED NOTES ED NOTES: HPI: Patient is a 31-year-old female presents via [facility] from the [facility] for altered mental status. There was concern about seizure activity but this was not certain. Patient complains of some left flank pain. No reports of shortness of breath or chest pain. She is febrile and reports decreased p.o. intake. Hot and cold chills. No urinary symptoms. ROS: All systems are negative other than as noted in HPI. Physical Exam I have reviewed the triage vital signs. Const: Well nourished, well developed, appears stated age, no acute distress Eyes: PERRL, EOM intact, no conjunctival injection, vision grossly normal HENT: Neck supple without meningismus , Moist mucous membranes, no pharyengeal swelling or exudate CV: Regular rate and rhythm, Warm, well-perfused extremities. Chest non tender RESP: Lungs clear bilaterally, Unlabored respiratory effort GI: soft, non-tender, non-distended, no masses : MSK: No gross deformities appreciated Skin: Warm, dry. No rashes Neuro: Alert and oriented x4, GCS 15 , drier and pulverizer tender II-XII grossly intact. Sensation and motor function of extremities grossly intact. Psych: Appropriate mood and affect. HISTORY OF PRESENTING ILLNESS SHAE is a 31 year old Female and was seen by me at 06-Apr-2022 20:22 for a chief complaint of altered mental status (Pt brought by AFD from [facility]. Alf stated patient had seizure in skilled nursing. On arrival, patient states she is hot and cold and her back hurts. Pt slow to respond.)(1). Triage Information: Most recent Vital Sign Value Date Temp (F): 101.1 04-06-2022 20:43 Temp (C): 38.3 04-06-2022 20:43 Heart Rate (beats/min): 155 04-06-2022 20:43 Respirations (breaths/min): 26 04-06-2022 20:43 SpO2 (%): 97 04-06-2022 20:43 BP Systolic (mm Hg): 158 04-06-2022 20:43 BP Diastolic (mm Hg): 117 04-06-2022 20:43 PAST MEDICAL HISTORY ALLERGIES/INTOLERANCES: Allergy Allergen: NKDA Type: Reaction: Allergen: Nuts Type: Food Reaction: Unknown Allergen: Onions Type: Food Reaction: Unknown Allergen: Cabbage Type: Food Reaction: Unknown Allergen: Peppers Type: Food Reaction: Unknown HEALTH HISTORY: No documented data. OUTPATIENT MEDICATIONS: Home Medications Review Status for Reconciliation: N/A Med Status: Incomplete Medication History Drug Name: gabapentin 400 mg oral capsule Instructions: 1 cap(s) orally 3 times a day Drug Name: Minipress 2 mg oral capsule Instructions: 1 cap(s) orally once a day SIGNIFICANT EVENTS: Past Medical History Description:agoraphobia Past Surgical History Description:wrist Social/Behavioral Description:Manic depressive Description:PTST MDM MDM/ED COURSE: Patient presented somewhat altered mental status severely tachycardic with a sinus rhythm, ill-appearing, febrile, she reports personally decreased p.o. intake. Apparently there has been an outbreak of COVID-19 at the skilled nursing. She has of this. She was initially treated with broad-spectrum IV antibiotics however I believe most of her symptoms are due to COVID-19 and dehydration as well as her fever. Lactic was slightly elevated at 2.2 this can be due to COVID tachycardia and fever. I do not believe this necessarily means she had a seizure. I believe that is still in question. Patient will be discharged. PROGRESS NOTE EKG Post-Procedure Diagnosis: EKG INTERPRETATION: Impression: Sinus tachycardia rate of 154, narrow complex, no ST elevation, no ectopy Repeat demonstrates sinus rhythm rate of 98 narrow complex, normal axis, no ST elevation or depression, no ectopy. DISPOSITION Diagnosis/Annotation: ED Dx Name:COVID-19 viremia Code:U07.1 Name:Tachycardia Code:R00.0 Name:Dehydration Code:E86.0 Name:Fever Code:R50.9 Disposition: discharged Type: [facility] facility CONSULT CRITICAL CARE TIME Is this a critically ill patient: yes Billing Provider Critical Care Time (mins): 35 Primary Critical Care Issue/Treatment (See MDM/ED Course/Tx Plan for greater detail): -- This patient is at high risk for, or is suffering from, failure of one or more organ systems, as listed above. We are treating with appropriate medications and hemodynamic support, as well as doing intensive diagnostic evaluation and monitoring. Please see MDM/ED Course/Treatment Plan for greater detail. and -- This patient has had, or currently has, a cardiac dysrhythmia. We are treating with appropriate medications, such as antiarrhythmic agents and/or other cardiovascular agents, hemodynamic support, cardioversion as indicated, as well as doing intensive diagnostic evaluation and monitoring. Please see MDM/ED Course/Treatment Plan for greater detail. Additional Critical Care Provided: direct patient care (not related to procedure) and interpretation of diagnostic studies Elect (more content not included)... Normal [facility] URINALYSIS WITH CULTURE IF I NDICATEDon 04-07-2022 Appearance (U) CLEAR Normal CLEAR [facility] Comment on above: Performed By: #### U ARFX #### [address] [address] Bilirubin Ql (U) Negative Normal NEGATIVE [facility] Comment on above: Performed By: #### U ARFX #### [address] [address] Color (U) YELLOW Normal STRAW,YELLO W [facility] Comment on above: Performed By: #### U ARFX #### [address] [address] Glucose Ql (U) Negative Normal NEGATIVE [facility] Comment on above: Performed By: #### U ARFX #### [address] [address] Hemoglobin Ql (U) Negative Normal NEGATIVE [facility] Comment on above: Performed By: #### U ARFX #### [address] [address] Ketones Ql (U) Negative Normal NEGATIVE [facility] Comment on above: Performed By: #### U ARFX #### [address] [address] Leukocyte esterase Test strip Ql (U) Negative Normal NEGATIVE [facility] Comment on above: Performed By: #### U ARFX #### [address] [address] Nitrite Ql (U) Negative Normal NEGATIVE [facility] Comment on above: Performed By: #### U ARFX #### [address] [address] pH (U) 6.5 [pH] Normal 5.0 - 8.0 [facility] Comment on above: Performed By: #### U ARFX #### [address] [address] Protein Ql (U) Negative Normal NEGATIVE [facility] Comment on above: Performed By: #### U ARFX #### [address] [address] Specific gravity (U) [Rel density] <1.005 Abnormal 1.005 - 1.035 [facility] Comment on above: Performed By: #### U ARFX #### [address] [address] Urobilinogen (U) [Mass/Vol] mg/dL Normal 0.0 - 1.9 [facility] Comment on above: Performed By: #### U ARFX #### [address] [address] BLOOD CULTURE, BACTERIALon 0 04-06-2022 BLOOD CULTURE, BACTERIAL PATIENT: SHAE FAJARDO LOCATION: [facility]#: [id number] : 89 AGE: SEX: F ORDERED BY: MARGARET MCHUGH SOURCE: Blood COLLECTED: 04/06/22 20:39 ANTIBIOTICS AT JOHN.: RECEIVED : 04/07/22 12:55 SITE: R E S U L T S BLOOD CULTURE, BACTERIAL FINAL 04/11/22 13:42 No Growth at 1 days No Growth at 2 days No Growth at 3 days NO GROWTH at 4 days - FINAL REPORT [facility] Comment on above: Performed By: #### B LDC #### [facility] [address] [place] [address] BLOOD CULTURE, BACTERIAL Only 1 bottle collected PATIENT: SHAE FAJARDO LOCATION: [facility]#: [id number] : 89 AGE: SEX: F ORDERED BY: MARGARET MCHUGH SOURCE: Blood COLLECTED: 04/06/22 20:32 ANTIBIOTICS AT JOHN.: RECEIVED : 04/07/22 12:55 SITE: ANTECUBITAL PERIPHERAL R E S U L T S BLOOD CULTURE, BACTERIAL FINAL 04/11/22 13:42 No Growth at 1 days No Growth at 2 days No Growth at 3 days NO GROWTH at 4 days - FINAL REPORT [facility] Comment on above: Performed By: #### L ACT #### [place] [address] BNPon 04-06-2022 Natriuretic peptide B (Bld) [Mass/Vol] 10 pg/mL Normal 0 - 99 [facility] Comment on above: Result Comment: . <1 00 pg/mL - Heart failure unlikely 100-299 pg/mL - Intermediate probability of acute heart . failure exacerbation. Correlate with clinical . context and patient history. >=300 pg/mL - Heart Failure likely. Correlate with clinical . context and patient history. BNP testing is performed using different testing methodology at [facility] than at other [facility]. Direct result comparisons should only be made within the same method. Performed By: #### B NP2 #### [place] [address] CBC AND DIFFERENTIALon 04-06 DIFFERENTIAL SEE MANUAL DIFF [facility] Comment on above: Performed By: #### C BCDF #### [place] [id number] Erythrocyte distribution width (RBC) [Ratio] 12.4 % Normal 11.5 - 14.5 [facility] Comment on above: Performed By: #### C BCDF #### [address] [address] Hematocrit (Bld) [Volume fraction] 44.8 % Normal 36.0 - 46.0 [facility] Comment on above: Performed By: #### C BCDF #### [address] [address] Hemoglobin (Bld) [Mass/Vol] 15.1 g/dL Normal 12.0 - 16.0 [facility] Comment on above: Performed By: #### C BCDF #### [address] [address] MCHC (RBC) [Mass/Vol] 33.6 g/dL Normal 32.0 - 36.0 [facility] Comment on above: Performed By: #### C BCDF #### [address] [address] MCV (RBC) [Entitic vol] 94 fL Normal 80 - 100 [facility] Comment on above: Performed By: #### C BCDF #### [address] [address] Platelets (Bld) [#/Vol] 247 10*3/uL Normal 150 - 450 [facility] Comment on above: Performed By: #### C BCDF #### [address] [address] RBC 4.74 x10E12/L Normal 4.00 - 5.20 [facility] Comment on above: Performed By: #### C BCDF #### [address] [address] WBC (Bld) [#/Vol] 6.4 10*3/uL Normal 4.4 - 11.3 [facility] Comment on above: Performed By: #### C BCDF #### [address] [address] CHEST 1 VIEWon 04-06-2022 CHEST 1 VIEW Patient Name: SHAE FAJARDO STUDY: CHEST 1 VIEW; 04/06/2022 8:56 pm INDICATION: cp . COMPARISON: 12/12/2016 ACCESSION NUMBER(S): [id number] ORDERING CLINICIAN: MARGARET MCHUGH FINDINGS: There is no focal lung consolidation or effusion. There is no edema. The cardiac silhouette is within normal limits for size. IMPRESSION: No acute cardiopulmonary process. Electronically signed by: KEYA SANCHEZ MD Normal [facility] COMPREHENSIVE PANELon 2021 Albumin [Mass/Vol] 4.9 g/dL Normal 3.4 - 5.0 [facility] Comment on above: Performed By: #### L ACT #### [address] [address] ALP [Catalytic activity/Vol] 88 U/L Normal 33 - 110 [facility] Comment on above: Performed By: #### L ACT #### [address] [address] ALT [Catalytic activity/Vol] 5 U/L Low 7 - 45 [facility] Comment on above: Result Comment: Elva ents treated with Sulfasalazine may generate falsely decreased results for ALT. Performed By: #### L ACT #### [address] [address] Anion gap [Moles/Vol] 16 mmol/L Normal 10 - 20 [facility] Comment on above: Performed By: #### L ACT #### [address] [address] AST [Catalytic activity/Vol] 15 U/L Normal 9 - 39 [facility] Comment on above: Performed By: #### L ACT #### [address] [address] Bilirubin [Mass/Vol] 1.0 mg/dL Normal 0.0 - 1.2 [facility] Comment on above: Performed By: #### L ACT #### [address] [address] Calcium [Mass/Vol] 9.9 mg/dL Normal 8.6 - 10.3 [facility] Comment on above: Performed By: #### L ACT #### [address] [address] Chloride [Moles/Vol] 102 mmol/L Normal 98 - 107 [facility] Comment on above: Performed By: #### L ACT #### [address] [address] Creatinine [Mass/Vol] 0.97 mg/dL Normal 0.50 - 1.05 [facility] Comment on above: Performed By: #### L ACT #### [address] [address] GFR/1.73 sq M.predicted among non-blacks MDRD (S/P/Bld) [Vol rate/Area] 80 mL/min/{1.73_m2} Normal >90 [facility] Comment on above: Result Comment: CALC ULATIONS OF ESTIMATED GFR ARE PERFORMED USING THE 2020 CKD-EPI STUDY REFIT EQUATION WITHOUT THE RACE VARIABLE FOR THE IDMS-TRACEABLE CREATININE METHODS. https://jasn.asnjournals.org/content//ASN.5571886 988 Performed By: #### L ACT #### [address] [address] Glucose [Mass/Vol] 109 mg/dL High 74 - 99 [facility] Comment on above: Performed By: #### L ACT #### [address] [address] HCO3 (Bld) [Moles/Vol] 22 mmol/L Normal 21 - 32 [facility] Comment on above: Performed By: #### L ACT #### [address] [address] Potassium [Moles/Vol] 3.4 mmol/L Low 3.5 - 5.3 [facility] Comment on above: Performed By: #### L ACT #### [address] [address] Protein [Mass/Vol] 7.4 g/dL Normal 6.4 - 8.2 [facility] Comment on above: Performed By: #### L ACT #### [address] [address] Sodium [Moles/Vol] 137 mmol/L Normal 136 - 145 [facility] Comment on above: Performed By: #### L ACT #### [place] [address] Urea nitrogen [Mass/Vol] 13 mg/dL Normal 6 - 23 [facility] Comment on above: Performed By: #### L ACT #### [place] [address] CORONAVIRUS 2019 BY PCRon Lab Specimen Source Nasal, Nasopharyngeal Normal [facility] Comment on above: Performed By: #### C OV19 #### [place] [address] SARS-CoV-2 (COVID-19) RNA ERNESTO+probe Ql (Unsp spec) Detected Abnormal Not Detected [facility] Comment on above: Result Comment: . This test has received FDA Emergency Use Authorization (EUA) and has been verified by [facility]. This test is only authorized for the duration of time that circumstances exist to justify the authorization of the emergency use of in vitro diagnostic tests for the detection of SARS-CoV-2 virus and/or diagnosis of COVID-19 infection under section 564(b)(1) of the Act, 21 U.S.C. 360bbb-3(b)(1), unless the authorization is terminated or revoked sooner. [facility] is certified under CLIA-88 as qualified to perform high complexity testing. Testing is performed in the [facility] laboratory located at [address] [place] [address]. SARS-CoV-2/Flu/RSV Multiplex Test: Fact sheet for providers: https://www.fda.gov/media/251136/download Fact sheet for patients: https://www.fda.gov/media/701391/download Performed By: #### C OV19 #### [place] [address] Covid 19 Resultson SARS-CoV-2 (COVID-19) RNA ERNESTO+probe Ql (Unsp spec) POSITIVE COVID-19 Test Coronaviruses are common world-wide and are the cause of many common colds. SARS-COV2 is a new coronavirus that began circulating worldwide in 2019 so we are calling it COVID-19. It has been estimated that four out of five patients with COVID-19 will recover at home without the need for medical attention. Symptoms of COVID-19 may include cough, fever, shortness of breath, loss of taste or smell and other flu-like symptoms including chills, sore muscles, sore throat, and headache. Severe illness is more common in older people and people with other health problems such as high blood pressure, obesity, and immune system problems. If the test is positive, you have COVID-19. You will be contacted by the ordering physicians office and instructed to remain on home isolation, in accordance with CDC guidelines. You may also be contacted by the [facility] to see if any of your close contacts may have been exposed to the virus and need to quarantine. If the test is negative, you likely do not have COVID-19 at this time, but you still may have a different illness that can spread to other people (like Influenza, or the Flu) and could still be at risk for getting COVID-19. We recommend that you stay away from other people to limit the spread of illness until your symptoms are improving and you are fever-free for 24 hours without the use of fever lowering medications such as acetaminophen or ibuprofen. No test is 100% accurate so if you are still concerned you may have COVID-19, talk to your doctor about the need to continue to stay away from others. Medicines Unless your provider told you not to use the following: Acetaminophen (Tylenol and others) is generally safe. Anti-inflammatory medications, such as Ibuprofen (Advil or Motrin) or Naproxen (Aleve) can also be used. Dcse-uku-ukgrtxc cough and cold medicines can be used according to the instructions on the package. Some anpu-ibi-isymlvj medicines also contain acetaminophen. Make sure you are not taking more than your recommended dose. For those not hospitalized, there is no specific treatment available for this illness. Antibiotics do not treat Coronaviruses. Follow-Up Follow up with your doctor by scheduling a virtual visit or consider follow-up at one of our urgent care fever clinics. If you are having difficulty breathing, or are very weak and having difficulty standing, this is a medical emergency. Call 911 or have someone take you to the nearest emergency room immediately. If possible, wear a facemask. Additional guidance from the CDC for patients who tested POSITIVE for COVID-19 How to isolate: Isolate yourself in a specific room at home and limit your contact with others. Use a separate bathroom from other members of the household, when possible. Leave home only to get essential medical care. Do not go to work, school or public areas. Avoid using public transportation, ride-sharing, or taxis. Restrict contact with pets and other animals. If you must care for your pet or be around animals while you are sick, wash your hands before and after your interaction and wear a facemask. Make sure that shared spaces in the home have good airflow, such as by an air conditioner or an opened window, weather permitting. Personal Hygiene Procedures: Wear a face mask when in the same room as other people or pets. If a face mask interferes with your breathing, others should wear a mask when sharing space with you. Frequent hand-washing: wash your hands with soap and water for at least 20 seconds. If soap and water are not available, use alcohol-based hand branch lead. Avoid touching your eyes, nose, and mouth with unwashed hands. Household Hygiene Procedures: Avoid sharing personal household items such as dishes, glassware, cups, eating utensils, towels or bedding with other people or pets in your home. After use, these items should be washed with soap and hot water. Disinfect all high-touch surfaces every day with antibacterial cleaning solutions such as Lysol wipes, bleach, cleansers, etc. High-touch surfaces include tabletops, doorknobs, bathroom fixtures, toilets, phones, keyboards, tablets and bedside tables. Immediately clean any surfaces that may have blood, poop or body fluids on them, using antibacterial cleaning solutions such as Lysol wipes, bleach, cleansers, etc. If clothing or bedding come into contact with blood, poop or body fluids, they should be washed immediately. Follow the directions on the laundry detergent and clothing labels but hot water is recommended when possible. Stopping home isolation precautions: If possible, consult your doctor before stopping home isolation precautions. According to the CDC, you can discontinue home isolation precautions when you have met both of these criteria: Your fever and respiratory symptoms have been gone for 24 neal (more content not included)... Normal [facility] LACTATEon 04-06-2022 Lactate [Moles/Vol] 2.2 mmol/L High 0.4 - 2.0 [facility] Comment on above: Result Comment: Maddie puncture immediately after or during the administration of Metamizole may lead to falsely low results. Testing should be performed immediately prior to Metamizole dosing. Performed By: #### L ACT #### [place] [address] MANUAL DIFFERENTIALon 2021 ANC 5.31 x10E9/L Normal 1.20 - 7.70 [facility] Comment on above: Performed By: #### M ORP2 #### [place] [address] BAND NEUTROPHIL 0.13 x10E9/L Normal 0.00 - 0.70 [facility] Comment on above: Performed By: #### M ORP2 #### [place] [address] BASOPHIL 0.00 x10E9/L Normal 0.00 - 0.10 [facility] Comment on above: Performed By: #### M ORP2 #### [place] [address] EOSINOPHIL 0.00 x10E9/L Normal 0.00 - 0.70 [facility] Comment on above: Performed By: #### M ORP2 #### [place] [address] LYMPHOCYTE 0.77 x10E9/L Low 1.20 - 4.80 [facility] Comment on above: Performed By: #### M ORP2 #### [place] [address] MONOCYTE 0.32 x10E9/L Normal 0.10 - 1.00 [facility] Comment on above: Performed By: #### M ORP2 #### [place] [address] SEG NEUTROPHIL 5.18 x10E9/L Normal 1.20 - 7.00 [facility] Comment on above: Performed By: #### M ORP2 #### [address] [address] % BAND NEUTROPHIL 2.0 % Normal 0.0 - 5.0 [facility] Comment on above: Performed By: #### M ORP2 #### [address] [address] % BASOPHIL 0.0 % Normal 0.0 - 2.0 [facility] Comment on above: Performed By: #### M ORP2 #### [address] [address] % EOSINOPHIL 0.0 % Normal 0.0 - 6.0 [facility] Comment on above: Performed By: #### M ORP2 #### [address] [address] % LYMPHOCYTE 12.0 % Normal 13.0 - 44.0 [facility] Comment on above: Performed By: #### M ORP2 #### [address] [address] % MONOCYTE 5.0 % Normal 2.0 - 10.0 [facility] Comment on above: Performed By: #### M ORP2 #### [address] [address] % SEG NEUTROPHIL 81.0 % Normal 40.0 - 80.0 [facility] Comment on above: Result Comment: Perc ent differential counts (%) should be interpreted in the context of the absolute cell counts (cells/L). Performed By: #### M ORP2 #### [address] [address] RED CELL MORPHOLOGYon 2021 RBC morphology finding Nom (Bld) NORMAL Normal [facility] Comment on above: Performed By: #### M ORP2 #### [address] [address] Risk Screen - Adult Emergenc yon 04-06-2022 Risk Screen - Adult Emergency Preferred Language: Preferred Language: Preferred Language for Discussing Health Care (patient/designee)Croatian Advanced Directives: Advance Directive/DNRno Family Violence Adult: Abuse Screen: Are you or have you been threatened or abused physically, emotionally, or sexually by anyoneno Learning Assessment (Patient): Learning Assessment (Patient): Patient is Able to be Assessed for Learningyes Factors Influencing Readiness to Learnacuteness of illness Factors that Impact Ability to Learnnone Devices/Methods Used to Communicatenone Learning Preferencesaudio Cultural Considerationsnone Developmental Considerationsnone Yazidi Considerationsnone Learning Assessment (Other Learner): Learning Assessment (Other Learner): Other learner availableno Pressure Injury/TB/Substance: Pressure Injury: Pressure Injury Present on Admissionno Do you have a coughno Smoking Statusunable to assess Alcohol Useunknown Drug Usehistory of abuse Drug 2 Usedenies Admission Risk Screen: Significant IndicatorsComplete CAGE: CAGE: Is this an injured patient at a Trauma Center ([facility]Callie/Alissa/Erin/Pattie Cruz/Nayana): no Electronic Signatures: Izzy Anderson (RONEN) (Signed 06-Apr-2022 20:48) Authored: Preferred Language, Advanced Directives, Family Violence Adult, Learning Assessment (Patient), Learning Assessment (Other Learner), Pressure Injury/TB/Substance, Pressure Injury, CAGE Last Updated: 06-Apr-2022 20:48 by Izzy Anderson (RONEN) Normal [facility] TROPONIN I, HIGH SENSITIVITY on 04-06-2022 TROPONIN I, HIGH SENSITIVITY 4 ng/L Normal 0 - 13 [facility] Comment on above: Result Comment: . Less than 99th percentile of normal range cutoff- Female and children under 18 years old <14 ng/L; Male <21 ng/L: Negative Repeat testing should be performed if clinically indicated. . Female and children under 18 years old 14-50 ng/L; Male 21-50 ng/L: Consistent with possible cardiac damage and possible increased clinical risk. Serial measurements may help to assess extent of myocardial damage. . >50 ng/L: Consistent with cardiac damage, increased clinical risk and myocardial infarction. Serial measurements may help assess extent of myocardial damage. . NOTE: Children less than 1 year old may have higher baseline troponin levels and results should be interpreted in conjunction with the overall clinical context. . NOTE: Troponin I testing is performed using a different testing methodology at [facility] than at other [facility]. Direct result comparisons should only be made within the same method. Performed By: #### T [facility] #### [facility] [address] [place] [address] Triage - EDon 04-06-2022 Triage - ED Quick Triage: Are You no Have You Given In The Last 6 Weeksno Are You Currently Breastfeedingno The patient and/or guardian verbally acknowledges placement for services into the following (when Urgent Care Service hours are operating):emergency department Chart Review: PRIMARY ASSESSMENT SHAE FAJARDO's primary assessment is Within Defined Limits. The airway is open and patent. Breathing spontaneous and unlabored with clear breath sounds bilaterally. Circulation is normal with good peripheral pulses. Skin is warm and dry and color is normal for race. ARRIVAL INFORMATION Means of Arrival: stretcher Mode of Arrival: ambulance Agency: City Agency Name: [facility] Arrival From: correctional facility Accompanied By: law enforcement Language: Spoken Language Preferred: Croatian Reading Language Preferred: Croatian Nursery Hand Requested: no senior network administrator was requested MDRO: History of MDRO: no Present on Arrival: Device Present on Arrival to ED: no Pressure Ulcer Present on Arrival to ED: no CHIEF COMPLAINT SHAE FAJARDO is a Female patient with a chief complaint of altered mental status ([facility] patient had seizure in skilled nursing. On arrival, patient states she is hot and cold and her back hurts. Pt slow to respond.). Triage Date/Time: 06-Apr-2022 20:43 BRUCE: 3 Pain Rating (0-10): unable to assess Vital Signs: Temperature: 101.1F ( 38.3C) taken forehead Blood Pressure: 158/117 Mean: Heart Rate: 155 Respiratory Rate: 26 Pulse Oximetry: 97% on room air, no respiratory support. Weight: 140.2 pounds. Calculated 63.6 kg. (stated) Richey Coma Scale: Best Eye Response: (E4) spontaneous Best Motor Response: (M6) obeys commands Best Verbal Response: (V5) oriented Richey Score: 15 Cough lasting greater than 3 weeks: no Allergies: yes Mask applied: yes Patient has homicidal thoughts: no Symptoms Are POSITIVE For: seizure. Symptoms Are Negative For: aphasia, ataxia, confusion, diaphoresis, facial droop, headache, numbness and vomiting. Last Known Well: unknown Risk Screens Suicide Risk Screen In the Past Month: Have you wished you were or wished you could go to sleep and not wake up no In the Past Month: Have you had any actual thoughts of killing yourself no In Your Lifetime: Have you ever done anything, started to do anything, or prepared to do anything to end your life no Castro Fall Scale Screening Has the patient fallen before (or is the patient in the ED as a result of a fall) has not had a fall Does the patient have an impaired gait does not have impaired gait Is the patient cognitively impaired not cognitively impaired Interventions: Castro Fall Interventions: LOW INTERVENTIONS: *patient oriented to surroundings and call system, * patient/family falls education completed and documented, *patients fall status communicated during bedside handoff, *whiteboard updated, *mode of toileting discussed with patient, *bed in low position with brakes locked, *call light in reach, * non-skid footwear PAST MEDICAL HISTORY Immunization History: Last Known Tetanus Immunization: Unknown TRAVEL HISTORY Travel History Coronavirus Screening: positive for symptoms Travel Exposure History: NO travel to International locations in the past 30 days PAIN Pain Scale Used: MAXIMO Pain Rating (0-10): unable to assess Past Medical History: Past Medical History Reviewedyes Electronic Signatures: Izzy Anderson (RONEN) (Signed 06-Apr-2022 20:48) Entered: Risk Screens, Pain, Arrival, ABCD, Immunizations, Travel History, Chart Review, Scores, Past Medical History Authored: Quick Triage, Risk Screens, Pain, Arrival, ABCD, Immunizations, Travel History, Chart Review, Scores, Past Medical History Last Updated: 06-Apr-2022 20:48 by Izzy Anderson) [facility] XR HAND LEFT 3+ VIEWS (STAND RUPINDER)on 06-05-2021 XR HAND LEFT 3+ VIEWS (STANDARD) EXAMINATION: XR HAND LEFT 3+ VIEWS (STANDARD); XR HAND RIGHT 3+ VIEWS (STANDARD) HISTORY: laceration to 5th digit, r/o FB COMPARISON: None. TECHNIQUE: Three views of the bilateral hands FINDINGS: No fracture or dislocation is seen. Joint spaces are well maintained. No bony erosive changes. Soft tissues are unremarkable. No radiopaque foreign bodies. IMPRESSION: No acute bony abnormality. Workstation ID: [id number] Dictated by: JULIANNE ZAVALA on [place] Jun 05, 2021 5:01:06 AM EST Transcribed by: JULIANNE ZAVALA on [place] Jun 05, 2021 5:01:06 AM EST Finalized by: JULIANNE ZAVALA on [place] Jun 05, 2021 5:01:06 AM EST [facility] Comment on above: Order Comment: Injur y/Trauma or Illness?:Injury/Trauma How long have you had these symptoms (acute/chronic)?:Acute Reason for exam?:laceration to 5th digit, r/o FB History of cancer?:. Surgeries, chemotherapy, or radiation?:. Type of Exam?:Initial Mechanism of injury?:glass XR HAND RIGHT 3+ VIEWS (LILA BELTRE)on 06-05-2021 XR HAND RIGHT 3+ VIEWS (STANDARD) EXAMINATION: XR HAND LEFT 3+ VIEWS (STANDARD); XR HAND RIGHT 3+ VIEWS (STANDARD) HISTORY: laceration to 5th digit, r/o FB COMPARISON: None. TECHNIQUE: Three views of the bilateral hands FINDINGS: No fracture or dislocation is seen. Joint spaces are well maintained. No bony erosive changes. Soft tissues are unremarkable. No radiopaque foreign bodies. IMPRESSION: No acute bony abnormality. Workstation ID: [id number] Dictated by: JULIANNE ZAVALA on [place] Jun 05, 2021 5:01:06 AM EST Transcribed by: JULAINNE ZAVALA on [place] Jun 05, 2021 5:01:06 AM EST Finalized by: JULIANNE ZAVALA on [place] Jun 05, 2021 5:01:06 AM EST [facility] Comment on above: Order Comment: Injur y/Trauma or Illness?:Injury/Trauma How long have you had these symptoms (acute/chronic)?:Acute Reason for exam?:laceration 5th digit, r/o FB History of cancer?:. Surgeries, chemotherapy, or radiation?:. Type of Exam?:Initial Mechanism of injury?:glass ED Provider Noteson 12-04-19 ED Provider Notes Encounter Department : [facility] ED Provider Notes by Sudha Melendez DO at 12/04/2019 7:13 PM Author: Tanya Urbinarvice: Emergency MedicineAuthor Type: ED Physician Filed: 12/04/2019 7:14 PMDate of Service: 12/04/2019 7:13 PMStatus: Signed Corporate Operations Compliance Manager: Sudha Melendez DO (ED Physician) Pt seen by Dr. Christie. Sudha Broussardayan Melendez DO 12/04/191913 [facility] ED Provider Notes Encounter Department : [facility] ED Provider Notes by Randall Mendez DO at 12/04/2019 7:13 PM Author: Tanya Montesrvice: Emergency MedicineAuthor Type: Resident Filed: 12/04/2019 7:14 PMDate of Service: 12/04/2019 7:13 PMStatus: Signed Corporate Operations Compliance Manager: Randall Mendez DO (Resident)Cosigner: Ilan Christie MD at 12/04/2019 7:53 PM This patient was seen during a simultaneous interview and physical exam performed by myself and Dr. Christie. Please see his documentation for HPI, ROS, PE, ED workup, MDM and final disposition. Electronically signed by: Randall Mendez DO 12/04/2019 7:13 PM Randall Mendez DO Resident 12/04/191913 [facility] ED Provider Notes Encounter Department : [facility] ED Provider Notes by Ilan Christie MD at 12/04/2019 7:12 PM Author: BLANCA Connerervice: -Author Type: ED Physician Filed: 12/04/2019 7:52 PMDate of Service: 12/04/2019 7:12 PMStatus: Addendum Corporate Operations Compliance Manager: Ilan Christie MD (ED Physician) Related Notes: Original Note by Ilan Christie MD (ED Physician) filed at 12/04/2019 7:12 PM CHIEF COMPLAINT History given by: Patient History limited by: Not applicable Chief Complaint Patient presents with -Ear Pain -Dental Pain FINAL IMPRESSION ICD-10-CM 1.Pain, dental K08.89 2.Dental caries K02.9 Disposition Discharged HPI Shae Fajardo is a 29 y.o. female who presents in bed 16 with pain in the left lower rear molar. She states that she had a dental filling fell out about a week ago. She developed pain today. She used some asvd-wwt-cyikakn dental putty and when she bit down broke off a portion of the tooth. She reports 10 out of 10 pain in the left rear molar that radiates to the ear. Denies any pain to the actual ear itself. Denies hearing changes. Denies difficulty swallowing. Denies fevers, chills, nausea, vomiting, or other associated symptoms. REVIEW OF SYSTEMS Constitutional: No fever, chills or recent illness. Eye: No visual changes HENT: Positive for dental pain Resp: No productive cough or SOB. Cardio: No chest pain or palpitations. GI: No abdominal pain, nausea, vomiting, constipation or diarrhea. No hematochezia or melena. : No dysuria, urgency or frequency or hematuria. Musculoskeletal: No new muscle aches or joint pain. Neuro: No headaches, focal weakness or sensory change Skin: No rash, No itching. PAST MEDICAL HISTORY History reviewed. No pertinent past medical history. FAMILY HISTORY No family history on file. SOCIAL HISTORY Social History Socioeconomic History -Marital status: Spouse name:None -Number of children:None -Years of education:None -Highest education level:None Occupational History -None Social Needs -Financial resource strain:None -Food insecurity Worry:None Inability:None -Transportation needs Medical:None Non-medical:None Tobacco Use -Smoking status:Current Some Day Smoker -Smokeless tobacco:Never Used Substance and Sexual Activity -Alcohol use:Never Frequency:Never -Drug use:Never -Sexual activity:Never Lifestyle -Physical activity Days per week:None Minutes per session:None -Stress:None Relationships -Social connections Talks on phone:None Gets together:None Attends protestant service:None Active member of club or organization:None Attends meetings of clubs or organizations:None Relationship status:None -Intimate partner violence Fear of current or ex partner:None Emotionally abused:None Physically abused:None Forced sexual activity:None Other TopicsConcern -None Social History Narrative -None SURGICAL HISTORY History reviewed. No pertinent surgical history. CURRENT MEDICATIONS No outpatient medications have been marked as taking for the 12/04/19 encounter (Hospital Encounter). ALLERGIES Allergies not on file PHYSICAL EXAM VITAL SIGNS: ED Triage Vitals [12/04/19 1859] BP139/88 Temp98.4 ?F (36.9 ?C) Pulse(S) 116 Resp16 UcL2202 % [id number] lb (54.4 kg) Richey Coma Scale Score15 BMI (Calculated)20.6 Constitutional: Well developed, Well nourished, patient writhing around in pain, speaking clearly. HENT: Normocephalic, Atraumatic, Bilateral external ears normal, Oropharynx moist, No oral exudates, Nose normal. Posterior oropharynx without erythema, exudate, or fullness. Uvula midline. Obvious dental caries and fracture to the left lower rear molar with about a quarter of the posterior medial aspect of the tooth missing. No surrounding warmth or erythema. No periapical abscess. No trismus. Eyes: PERRL 3mm, EOMI without pain, Conjunctiva normal, No discharge. No scleral icterus. Neck: Normal range of motion without pain, no meningismus, no tenderness, Supple. No pain with tracheal or laryngeal rock Lymphatic: No cervical or supraclavicular lymphadenopathy noted. Cardiovascular: Tachycardia with regular rhythm, No murmurs, gallops or rubs. 2+ radial pulses b/l Thorax AND Lungs: Normal breath sounds, No respiratory distress, No wheezing. No use of accessory muscles or retractions. Abdomen: Soft, No tenderness with deep firm palpation throughout, no rebound or guarding, No pulsatile masses, No distention, Normal bowel sounds Skin: Warm, dry, No erythema, No rash. Normal capillary refill, without peripheral mottling or flushing Back: No midline bony tenderness, No step-offs or deformities, No CVA tenderness to percussion. Extremities: No edema, No calf or thigh pain with compression, No tenderness along the extremities or with palpation of major joints, No cyanosis, No clubbing. Musculoskeletal: Good range of motion in all major joints as observed. No major deformities noted. Neurologic: Alert AND oriented x 3, CN II-XII intact and nonfocal, 5/5 strength throughout the extremities, Normal sensory function throughout the extremities, No focal deficits noted. Psychiatric: Affect appears anxious, Judgment normal, Mood normal. MEDS GIVEN IN ED: Medications acetaminophen (TYLENOL) tablet 1,000 mg (1,000 mg Oral Given [birth year]/191933) COURSE AND MEDICAL DECISION MAKING Pertinent Labs AND Imaging studies reviewed. (See chart for details) BP 139/88 Pulse 98 Temp 98.4 ?F (36.9 ?C) Resp 16 Ht 5' 4 (1.626 m) Wt 120 lb (54.4 kg) SpO2 100% BMI 20.60 kg/m? Nontoxic 29-year-old female presenting with dental caries and dental fracture. She is afebrile. She was tachycardic but she was also in distress and writhing around in pain. Her fractured teeth was covered in cold pack dental paste and pain markedly improved. No evidence of drainable fluid collection. Given that her pain started before even the tooth got fractured she will treat with antibiotics or possibly developing infection. As her pain improved her heart rate improved. She has no trismus. No evidence of impending airway respiratory compromise. She will be referred to dentistry for follow-up. We discussed signs and symptoms for which to watch and indications for returning to the emergency department. The patient agreed to strict return precautions and follow-up instructions that we discussed. Pt stable at time of discharge. Patient was seen by me in conjunction with the resident physician, who participated in the patient's management and care under my direct supervision. New Prescriptions IBUPROFEN (MOTRIN) 600 MG TABLET Take 1 tablet (600 mg total) by mouth every 6 hours as needed for Pain. PENICILLIN V POTASSIUM (VEETID) 500 MG TABLET Take 1 tablet (500 mg total) by mouth 4 times daily for 10 days. Electronically signed by: Ilan Christie MD, 12/04/2019 Ilan Christie MD [birth year]/191951 Normal [facility] Alcohol, Medicalon 9 Ethanol mass conc mg/dL <10.00 mg/dL [facility] Interpretation and review of laboratory results Normal [facility] CBC WITH AUTO DIFFERENTIALon 12-11-2018 Basophils #/vol (Bld) 0.05 10*3/uL [facility] Basophils/100 WBC (Bld) 0.8 % [facility] Eosinophils #/vol (Bld) 0.16 10*3/uL [facility] Eosinophils/100 WBC (Bld) 2.5 % [facility] Erythrocyte distribution width Entitic volume (RBC) 13.2 % 11.6 - 14.8 % [facility] Hematocrit Volume Fraction (Bld) 41.7 % 36 - 46 % [facility] Hemoglobin mass conc (Bld) 14.1 g/dL 12 - 16 g/dL [facility] Immature granulocytes #/vol (Bld) 0.02 10*3/uL [facility] Immature granulocytes/100 WBC (Bld) 0.30 % [facility] Comment on above: The IG parameter is the percentage of metamyelocytes, myelocytes, and promyelocytes. Lymphocytes #/vol (Bld) 1.90 10*3/uL [facility] Lymphocytes/100 WBC (Bld) 29.3 % [facility] MCH Entitic mass (RBC) 31.5 pg 26 - 34 pg [facility] MCHC mass conc (RBC) 33.8 g/dL 31 - 37 g/dL [facility] MCV Entitic volume (RBC) 93.3 fL 80 - 100 fL [facility] Monocytes #/vol (Bld) 0.56 10*3/uL [facility] Monocytes/100 WBC (Bld) 8.6 % [facility] Neutrophils #/vol (Bld) 3.80 10*3/uL [facility] Neutrophils/100 WBC (Bld) 58.5 % [facility] Nucleated RBC #/vol (Bld) 0.00 10*3/uL [facility] Nucleated RBC/100 WBC Ratio (Bld) 0.0 % [facility] Platelet mean volume Entitic volume (Bld) 9.9 fL 9 - 15.5 fL [facility] Platelets #/vol (Bld) 293 10*3/uL [facility] RBC #/vol (Bld) 4.47 10*6/uL [facility] WBC #/vol (Bld) 6.49 10*3/uL [facility] Chem 7on 12-11-2018 Anion gap molar conc 12 mmol/L 10 - 20 mmol/L [facility] Chloride molar conc 108 mmol/L 98 - 108 mmol/L [facility] Creatinine mass conc 1.03 mg/dL 0.4 - 1 .1 mg/dL [facility] GFR/1.73 sq M predicted among non-blacks MDRD vol rate/area (S/P/Bld) The eGFR should be used for monitoring renal function only and not for medication dosing. [facility] GFR/1.73 sq M.predicted CKD-EPI vol rate/area (S/P/Bld) 75 >=60 mL/min/1.73 m2 [facility] Glucose mass conc 99 mg/dL 65 - 99 mg/dL [facility] HCO3 molar conc 27 mmol/L 21 - 32 mmol/L [facility] Potassium molar conc 4.0 mmol/L 3.5 - 5 .1 mmol/L [facility] Sodium molar conc 143 mmol/L 135 - 145 mmol/L [facility] Urea nitrogen mass conc 10 mg/dL 8 - 25 mg/dL [facility] Urea nitrogen/Creatinine mass ratio 9.7 mg/mg Low [facility] DRUGS OF ABUSE SCREEN, URINE on 12-11-2018 Amphetamines Ql (U) Positive Abnormal None Detected [facility] Comment on above: Urine Amphetamine Cutoff: < 1000 ng/mL = None Detected Barbiturates Screen Ql (U) None Detected None Detected [facility] Comment on above: Urine Barbiturates Cutoff: < 200 ng/mL = None Detected Benzodiazepines Ql (U) Positive Abnormal None Detected [facility] Comment on above: Urine Benzodiazepine Cutoff: < 200 ng/mL = None Detected Cannabinoids Screen Ql (U) None Detected None Detected [facility] Comment on above: Urine Cannabinoids Cutoff: < 50 ng/mL = None Detected Cocaine Ql (U) None Detected None Detected [facility] Comment on above: Urine Cocaine Cutoff: < 300 ng/mL = None Detected Interpretation and review of laboratory results Abnormal [facility] Methadone Screen Ql (U) None Detected None Detected [facility] Comment on above: Urine Methadone Cutoff: < 300 ng/mL = None Detected Opiates Screen Ql (U) None Detected None Detected [facility] Comment on above: Urine Opiates Cutoff: < 300 ng/mL = None Detected Oxycodone Ql (U) None Detected None Detected [facility] Comment on above: Urine Oxycodone Cutoff: < 100 ng/mL = None Detected Screen results shoul d be used for treatment purposes only. Specimen will be kept for 1 week, if the sample is adequate. Confirmation testing can be initiated by calling the lab within 1 week. [facility] Hepatic Function Panel (LFT) on 12-11-2018 Albumin mass conc 3.8 g/dL 3.2 - 5.2 g/dL [facility] ALP enzyme act/vol 120 U/L 40 - 140 U/L [facility] ALT enzyme act/vol 11 U/L Low 14 - 65 U/L [facility] ealt AST enzyme act/vol 14 U/L 0 - 45 U/L [facility] alth Bilirubin mass conc 0.7 mg/dL 0 - 1.3 mg/dL [facility] Bilirubin.conjugated mass conc 0.2 mg/dL 0 - 0.4 mg/dL [facility] Protein mass conc 7.1 g/dL 6 - 8 g/dL [facility] Other[facility] 12-11-2018 Extra Tube Hold for add-ons. [facility] Comment on above: Auto resulted. Interpretation and review of laboratory results Abnormal [facility] TSH with Reflex Free T4on Interpretation and review of laboratory results Normal [facility] Thyrotropin Qn 0.65 m[IU]/L [facility] URINALYSISon 12-11-2018 Bacteria Auto Ql (U) None Seen None Se en /hpf [facility] Bilirubin Ql (U) Negative Negative [facility] Clarity Refractometry automated Nom (U) Hazy Abnormal Clear [facility] Color Nom (U) Yellow Colorless, Yellow [facility] Epithelial cells.squamous Auto #/area (Urine sed) 5 High [facility] Glucose Automated test strip mass conc (U) Negative Negative mg/dL [facility] Hemoglobin Automated test strip Ql (U) Negative Negative [facility] Interpretation and review of laboratory results Abnormal [facility] Ketones mass conc (U) Negative Negative mg/dL [facility] Leukocyte esterase Automated test strip Ql (U) Trace Abnormal Negative [facility] Mucus Auto #/area (Urine sed) Few Abnormal None Seen, Rare /lpf [facility] Nitrite Automated test strip Ql (U) Negative Negative [facility] pH (U) 6.0 [pH] [facility] Protein mass conc (U) Negative Negative mg/dL [facility] RBC Auto #/area (Urine sed) 1 [facility] Specific gravity Relative Density (U) 1.025 [facility] Urobilinogen mass conc (U) >=4.0 Abnormal <2.0 mg/dL [facility] WBC Auto #/area (Urine sed) 16 High [facility] Microscopic examinat ion is performed on all urinalysis samples and only positive findings are reported. The test for blood on the chemical analytic portion of urinalysis may also be positive due to hemoglobinuria and myoglobinuria and if red blood cells are present they are quantified by microscopic examination. [facility] hCG Urine, Qualitativeon HCG ( test) Ql (U) Negative Negative [facility] Interpretation and review of laboratory results Normal [facility] GLUCOSE BY METERon 9 Glucose [Mass/Vol] 111 mg/dL High 65-110 [facility] Comment on above: Performed By: #### G LUM #### [facility] [address] [place], [place] [address] Service Order Dispatcher - Marcella DAVIS [id number] ED PROV NOTEon 07-10-2018 Protein mass conc HNO ID: [id number] Author: Arnoldo Moraes MD Service: Emergency Medicine Author Type: Physician Type: ED Provider Notes Filed: 07/09/2018 10:35 PM Note Text: 28-year-old female presents as a transfer from the [facility] after she slipped on ice [...] hepatosplenomegaly appreciated or masses, or pulsatile masses. Arnoldo Moraes MD 07/09/18 0206 Normal [facility] Activated PTTon 07-09-2018 aPTT Coag time (Bld) 24.2 s Normal 23.0-32.4 [facility] Comment on above: Result Comment: Note : New Reference RangeUnfractionated Heparin Therapeutic Ranges:Standard Heparin Nomogram: 53 to 78 seconds (anti-Xa level of 0.3 to 0.7 U/mL)Low Dose/ACS Nomogram: 49 to 67 seconds (anti-Xa level of 0.2 to 0.5 U/mL)Stroke Treatment Nomogram: 49 to 67 seconds (anti-Xa level of 0.2 to 0.5 U/mL)Note: The APTT therapeutic range has been determined for the current lot of laboratory APTT reagent in use throughout the [facility]. Performed By: #### A PTT ####[address] [address] Alcohol, Serumon 07-09-2018 Alcohol, Serum < 3 Normal [facility] Comment on above: Performed By: #### A LC ####[facility] [place], [place] [address] Amylase Bloodon 07-09-2018 Amylase enzyme act/vol 49 U/L Normal 25-115 [facility] Comment on above: Performed By: #### A MY ####[facility] [place], [place] [address] CT HEAD W/O CONTRASTon 07-09 CT HEAD W/O CONTRAST Performed at [facility] APPROVED BY: Meng Willoughby MD Addendum Begins* * * * * * * * ORIGINAL REPORT * * * * * * * *EXAMINATION: CT HEAD W/O CONTRAST CLINICAL HISTORY: Headache status post fall TECHNIQUE: Serial axial images without IV contrast were obtained from the vertex to the foramen magnum.MQ: CTBWO_3 CT Dose-Length Product: 857.6 mGy*cmCT Dose Reduction Employed: 3. mAs or kVp [...] are grossly clear. IMPRESSION: No traumatic intracranial abnormality.* * * * * * * * ADDENDUM #1 * * * * * * * *Comparison is made to CT head from outside institution same day.Addendum EndsEXAMINATION: CT HEAD W/O CONTRAST CLINICAL HISTORY: Headache status post fall TECHNIQUE: Serial axial images without IV contrast were obtained from the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 INSULATOR.GROCERY STORE CLERK Work Phone: [facility] Work Phone: 06-12-1995 diphtheria, tetanus toxoids and acellular pertussis vaccine Milliecnt Aryan ASSEMBLER INSULATOR.[facility] Work Phone: [facility] Work Phone: 06-12-1995 trivalent poliovirus vaccine, live, oral Millicent Aryan ASSEMBLER INSULATOR.[facility] Work Phone: [facility] Work Phone: 05-10-1993 haemophilus influenzae type b vaccine, HbOC conjugate Millicent Aryan ASSEMBLER INSULATOR.[facility] Work Phone: [facility] Work Phone: 05-10-1993 measles, mumps and rubella virus vaccine Millicent [place] ASSEMBLER INSULATOR.[facility] Work Phone: [facility] Work Phone: 1991 diphtheria, tetanus toxoids and pertussis vaccine Millicent [place] ASSEMBLER INSULATOR.[facility] Work Phone: [facility] Work Phone: 1991 haemophilus influenzae type b vaccine, HbOC conjugate Millicent [place] ASSEMBLER INSULATOR.[facility] Work Phone: [facility] Work Phone: 1991 diphtheria, tetanus toxoids and pertussis vaccine Millicent [place] ASSEMBLER INSULATOR.[facility] Work Phone: [facility] Work Phone: 1991 haemophilus influenzae type b vaccine, HbOC conjugate Millicent [place] ASSEMBLER INSULATOR.GROCERY STORE CLERK Work Phone: [facility] Work Phone: 1991 trivalent poliovirus vaccine, live, oral Millicent Aryan ASSEMBLER INSULATOR.GROCERY STORE CLERK Work Phone: [facility] Work Phone: 1991 diphtheria, tetanus toxoids and pertussis vaccine Millicent Aryan ASSEMBLER INSULATOR.GROCERY STORE CLERK Work Phone: [facility] Work Phone: 1991 haemophilus influenzae type b vaccine, HbOC conjugate Millicent Aryan ASSEMBLER INSULATOR.GROCERY STORE CLERK Work Phone: [facility] Work Phone: 1991 trivalent poliovirus vaccine, live, oral Millicent Aryan ASSEMBLER INSULATOR.GROCERY STORE CLERK Work Phone: [facility] Work Phone: Payers Date Payer Category Payer Self-pay 2022 [facility] [id number] 2022 Medicaid [id number] 2018 Medicaid [employer] xxxxxxxxxxx 2018-Present [id number] 2018 Medicaid (Managed Care) [employer] [id number] 2018 Medicaid 2017 Unknown 1991 Unknown [id number] 2.16.840.1.079735.3.579.2. 717 1991 Unknown [id number] 2.16.840.1.154887.3.579.2. 717 1991 Unknown [id number] 2.16.840.1.859312.3.579.2. 278 1991 Unknown [id number] 2.16.840.1.619201.3.579.2. 356 1991 Unknown [id number] 2.16.840.1.965949.3.579.2. 419 1991 Unknown [id number] 2.16.840.1.131857.3.579.2. 419 1991 Unknown [id number] 2.16.840.1.616649.3.579.2. 419 1991 Unknown [id number] 2.16.840.1.424097.3.579.2. 419 1991 Unknown [id number] 2.16.840.1.446564.3.579.2. 419 1991 Unknown [id number] 2.16.840.1.458024.3.579.2. 903 1991 Unknown [id number] 2.16.840.1.042642.3.579.2. 1069 1991 Unknown [id number] 2.16.840.1.188542.3.579.2. 627 1991 Unknown [id number] 2.16.840.1.160340.3.579.2. 903 1991 Unknown [id number] 2.16.840.1.044848.3.579.2. 902 1991 Unknown [id number] 2.16.840.1.517673.3.579.2. 902 1991 Unknown [id number] 2.16.840.1.473756.3.579.2. 902 1991 Unknown [id number] 2.16.840.1.671912.3.579.2. 902 1991 Unknown [id number] 2.16.840.1.042713.3.579.2. 1243 1991 Unknown [id number] 2.16.840.1.007753.3.579.2. 903 1991 Unknown [id number] 2.16.840.1.967366.3.579.2. 903 1991 Unknown [id number] 2.16.840.1.183526.3.579.2. 903 1991 Unknown [id number] 2.16.840.1.106048.3.579.2. 903 1991 Unknown [id number] 2.16.840.1.558449.3.579.2. 903 1959 Medicaid [id number] Unknown [id number] Unknown [id number] 2.16.840.1.383214.3.579.2. 1069 Unknown [id number] 2.16.840.1.793357.3.579.2. 462 Unknown [facility] [id number] Social History Date Type Detail Facility Start: 07-09-2018 End: 12-16-2018 Tobacco smoking status WIIS Current every day smoker [facility] History of tobacco use Cigarette Smoker [facility] Start: 12-16-2018 End: 11-20-2024 Cigarettes smoked current (pack per day) - Reported [facility] Start: 12-11-2018 History SDOH Alcohol Frequency 1 [facility] Start: 1990 Sex Assigned At Not on file [facility] Start: 01-19-2020 Tobacco smoking consumption unknown [facility] Tobacco smoking status No Smokin g Status Entered [facility] Start: 1991 Sex Assigned At Female [facility] Start: 11-21-2016 None [facility] Start: 11-21-2016 Heroin [facility] Start: 11-21-2016 With Family [facility] Start: 07-09-2018 End: 03-28-2023 Tobacco use and exposure Smokeless tobacco non-user [facility] Start: 03-15-2022 Alcohol intake Current non-drinker of alcohol (finding) [facility] Start: 03-15-2022 End: 11-20-2024 Tobacco use panel [facility] PHQ-2 Score 0 [facility] Start: 03-28-2023 Tobacco smoking status NHIS Ex-smoker [facility] History of tobacco use Current smoker [facility] Start: 05-07-2023 End: 01-15-2025 Alcohol intake Ex-drinker (finding) [facility] Start: 12-11-2018 Gender identity Identifies as female gender (finding) [facility] Start: 12-11-2018 Sexual orientation Heterosexual (finding) [facility] Start: 10-08-2024 Tobacco smoking status NHIS Never smoked tobacco [facility] Work Phone: Start: 10-08-2024 Alcoholic beverage intake Lifetime non-drinker (finding) [facility] Work Phone: Start: 09-28-2024 End: 10-08-2024 Exposure to SARS-CoV-2 (event) Not sure [facility] Work Phone: (I/We) worried [facility] (my/our) food would run out before (I/we) got money to buy more. Never true [facility] In the past 12 month s, was there a time when you were not able to pay the mortgage or rent on time? No [facility] Clinical Notes 02-08-2023 to 05-12-2025 Telephone Encounter - Marylou Campbell CMA - 03/11/2025 7:58 AM EDTTelephone Encounter - Marylou Campbell MAILING JOGGER - 03/11/2025 7:58 AM Nigel Childers DO - 01/15/2025 12:30 PM EDT Note Date & Type Note Facility 05-12-2025 Note Behavioral Health Ou tpatient Progress Note Patient Name: Shae Harris MR #: [id number] : 1990 Chief Complaint: Medication and symptom review/management Interval History: 05/12/2025 Patient presents for follow up exam. I discussed risks, benefits and alternatives of a telemedicine video consultation with the patient (and any accompanying persons) including the risks that the patient's personal health details and medical records will be discussed over real-time, synchronous, interactive audio technology, the visit will not be recorded without the express consent of both the provider and the patient, and that there are inherent diagnostic limitations compared to [id number] evaluations. We elected to proceed with the telemedicine video consultation. Patient is engaged and cooperative during conversation. Last visit was on 10-30-24 and patient continues with Hydroxyzine and Vraylar. Takes Gabapentin for the management of Fibromyalgia per her PCP. Chronic pain is in the back. Decently controlled. Working at [employer] in [place]. Mood is pretty good. Pretty stable. Motivated. No anhedonia. Anxiety has been pretty good. No panic attacks. Mind does not race. Sleep is ok. Getting 6 hours. No nightmares. Able to focus/concentrate at home and at work on some days. Appetite is good. Walks a lot at work. No aggressive behaviors, paranoia, risky behaviors, hypomanic/manic episodes, AVH, or suicidal ideations/homicidal ideations. Current stressors: sister has her son Current psychotherapy: is established with [facility] Previous Visit: 10-30-24: Chart reviewed. Shae Harris is a 34 y.o. female who presents for initial psychiatric assessment. States she can remember prior to the age of 6 feeling as if she was never born. Was an athletic child- in many sports. States when she failed Polish in 9th grade, she was not permitted to be in sports and she feels this is when she feels things went downhill. Next memory was in high school when she was taken out of class to be evaluated. States she was rebellious as a child. Was seen at [facility] for said evaluation and states this was a terrible experience. Was placed into therapy at this time. Started with medication therapy the first time she went to skilled nursing in 2013. Takes Gabapentin for the management of Fibromyalgia per her PCP. Pain is in the back. -Depression: Mood: irritable, fluctuates a lot, mind races a lot Sleep: hard to fall asleep, is a light sleeper, gets about 6 hours as a maximum, nightmares at times. Irritability: easily annoyed and agitated. Feelings of guilt/worthlessness in regards to being the only disciplinary parent in the home. Feels her spouse may start to resent her as she has to tell him how to deal with his own children. Appetite: good Is not exercising. Hobbies: used to love to paint, used to love to get out in nature Anhedonic at times. Forced to be motivated. Suicidal ideations: denies Homicidal ideations: denies Endorses functional impairment secondary to these symptoms. -Anxiety: Excessive worry in regards to several subjects. Feels like she may have panic attacks when laying in bed in a quiet house. Does not like to be in public. Attention, concentration, focus: adequate Slacking a bit on completing tasks at home. Endorses functional impairment secondary to these symptoms. -Carissa/Hypomania: Does report symptoms of bipolar disorder, including persistently elevated or expansive mood, increased goal directed behavior, distractibility, excessive energy, decreased need for sleep, pressured speech, racing thoughts, grandiosity or engagement in risky activities (hypersexual). Last elevated mood was 3 weeks ago and lasted several days but admits to having had an episode last 1.5 weeks. -OCD: Does not report obsessive thoughts and compulsive behaviors that are completed to minimize anxiety or stop the obsessive thought. -PTSD: Does report exposure to a traumatic event. -Psychotic symptoms: Does report psychotic symptoms, including hallucinations or delusions. Admits to auditory hallucinations when she lays her head down on her pillow nightly-jumbling of voices. No tactile or visual hallucinations. -Paranoia: none Current Medications: Medications Prior to Visit[1] control: has had a Vasectomy Lethality: Denies suicidal or homicidal ideations. Psychiatric ROS: Negative unless noted above. Review of Systems: Constitutional: Denies fever, chills, diaphoresis, malaise Eyes: Denies blurred vision, double vision ENT: Denies nasal congestion, sore throat, ear pain Neurological: Denies headache, photophobia, weakness, numbness CVS: Denies chest pain or palpitations Respiratory: Denies dyspnea or cough Musculoskeletal: Denies joint pain or muscle aches GI: Denies nausea, vomiting, constipation, or diarrhea : Denies urinary urgency, frequency, or burni (more content not included)... [facility] 03-11-2025 Telephone encounter Note 03/11/25..lvm w/ , pt phone vm is full and unable to leave a message...asking that he have Shae call the office to schedule an appt...ml [facility] 03-11-2025 Miscellaneous Notes 03/11/25..lvm w/ , pt phone vm is full and unable to leave a message...asking that he have Shae call the office to schedule an appt...ml She needs to be scheduled please and thanks. documented in this encounter [facility] 03-11-2025 Telephone encounter Note She needs to be scheduled please and thanks. [facility] 01-15-2025 Note Telephone Visit Via Phone Call [facility] [address] [place] [phone] Telephone Visit [facility] 01/15/2025 Nigel To DO Provider Location: [address] [place] [address] Patient Location [employer] [facility]: None Patient Location: Patient's Home Patient: Shae Harris Date of : 1990 (34 y.o. female) PCP: Nigel To DO I discussed risks, benefits and alternatives of a telephone visit telemedicine consultation with the patient (and any accompanying persons) including the risks that the patient's personal health details and medical records will be discussed over real-time, synchronous, interactive audio technology, the visit will not be recorded without the express consent of both the provider and the patient, and that there are inherent diagnostic limitations compared to [id number] evaluations. We elected to proceed with the telephone visit telemedicine consultation. After discussing the use of ambient listening and audio recording in generating medical documentation, the patient verbally consented to use of this technology for today's visit. Assessment & Plan Bipolar I Disorder Increased irritability likely due to job loss. On Vraylar 1.5 mg daily with mood improvement. Do not feel that she is currently in an active manic episode. Anxiety may contribute to irritability. Auditory hallucinations were mentioned in prior documentation, but these are not felt to be true hallucinatory events, due to her also experiencing the same auditory phenomena in the absence of any psychiatric illness. - Continue Vraylar 1.5 mg daily; defer additional changes to psych. - Consult psychiatric provider about buspirone as adjunctive therapy. - Encourage counseling follow-up, especially after job loss. - Consider hydroxyzine for anxiety as needed, particularly at night. Follow-up Scheduled psychiatric provider visit in a couple of weeks. Plan to reassess condition and treatment in three months. - Schedule follow-up appointment in three months. - Ensure communication with psychiatric provider regarding concerns and potential treatment adjustments. Diagnoses and all orders for this visit: Bipolar 1 disorder, depressed (HCC) Irritability Return in about 3 months (around 2025) for Follow Up mood. For any new medications prescribed today, patient was educated about indications for the medication, how to take the medication, and potential side effects of the medication. My ongoing relationship with Shae Harris requires continued responsibility and cognitive effort of being the focal point for all services related to chronic condition(s). *Total encounter time today was >30 minutes. This time includes review of past tests/notes, obtaining patient history, performing a medically necessary exam, counseling the patient, ordering tests/procedures/medications, documentation, and care coordination. ------ Subjective History of Present Illness Shae Harris is a 34 year old female with bipolar disorder who presents with increased irritability and mood instability. Over the past week, she experiences increased irritability, triggered by recent personal events. She isolates herself to manage irritability, which is less severe than previous episodes. However, she does report improvement since starting Vraylar, albeit the last week of irritability. She lost her job three weeks ago, adding to her stress and irritability. 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 Her sleep has not improved with Vraylar, though it has not worsened. Previously, Seroquel improved sleep but caused daytime sedation. Hydroxyzine is available for anxiety but is used sparingly due to sedation. She denies any other manic symptoms other than irritability. She previously had a mention of auditory hallucinations according to documentation from psych. Today, she provides additional clarification regarding this. She describes auditory experiences at night, hearing muffled sounds like a distant radio when lying down. Interestingly, her (who does not have any active mental health issues) also is able to hear the sounds at night, suggesting that they are not true hallucinatory events. *Review of systems negative unless otherwise stated in HPI. The following portions of the patient's history were reviewed and updated as appropriate: allergies, current medications, past family history, past medical history, past social history, past surgical history, and problem list. Patient's Medications New Prescriptions No medications on file Previous Medications CARIPRAZINE (VRAYLAR) 1.5 MG CAPSULE Take 1 (one) capsule (1.5 mg total) by mouth daily . GABAPENTIN (NEURONTIN) 600 MG TABLET Take 1 (one) tablet (600 mg total) by mout (more content not included)... [facility] 01-15-2025 History of Present illness Narrative Telephone Visit Via Phone Call [facility] [address] [place] [phone] Telephone Visit [facility] 01/15/2025 Nigel To DO Provider Location: [address] [place] [address] Patient Location [employer]: None Patient Location: Patient's Home Patient: Shae Harris Date of : 1990 (34 y.o. female) PCP: Nigel To DO I discussed risks, benefits and alternatives of a telephone visit telemedicine consultation with the patient (and any accompanying persons) including the risks that the patient's personal health details and medical records will be discussed over real-time, synchronous, interactive audio technology, the visit will not be recorded without the express consent of both the provider and the patient, and that there are inherent diagnostic limitations compared to [id number] evaluations. We elected to proceed with the telephone visit telemedicine consultation. After discussing the use of ambient listening and audio recording in generating medical documentation, the patient verbally consented to use of this technology for today's visit. Assessment & Plan Bipolar I Disorder Increased irritability likely due to job loss. On Vraylar 1.5 mg daily with mood improvement. Do not feel that she is currently in an active manic episode. Anxiety may contribute to irritability. Auditory hallucinations were mentioned in prior documentation, but these are not felt to be true hallucinatory events, due to her also experiencing the same auditory phenomena in the absence of any psychiatric illness. - Continue Vraylar 1.5 mg daily; defer additional changes to psych. - Consult psychiatric provider about buspirone as adjunctive therapy. - Encourage counseling follow-up, especially after job loss. - Consider hydroxyzine for anxiety as needed, particularly at night. Follow-up Scheduled psychiatric provider visit in a couple of weeks. Plan to reassess condition and treatment in three months. - Schedule follow-up appointment in three months. - Ensure communication with psychiatric provider regarding concerns and potential treatment adjustments. Diagnoses and all orders for this visit: Bipolar 1 disorder, depressed (HCC) Irritability Return in about 3 months (around 2025) for Follow Up mood. For any new medications prescribed today, patient was educated about indications for the medication, how to take the medication, and potential side effects of the medication. My ongoing relationship with Shae Harris requires continued responsibility and cognitive effort of being the focal point for all services related to chronic condition(s). *Total encounter time today was >30 minutes. This time includes review of past tests/notes, obtaining patient history, performing a medically necessary exam, counseling the patient, ordering tests/procedures/medications, documentation, and care coordination. ------ Subjective History of Present Illness Shae Harris is a 34 year old female with bipolar disorder who presents with increased irritability and mood instability. Over the past week, she experiences increased irritability, triggered by recent personal events. She isolates herself to manage irritability, which is less severe than previous episodes. However, she does report improvement since starting Vraylar, albeit the last week of irritability. She lost her job three weeks ago, adding to her stress and irritability. 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 Her sleep has not improved with Vraylar, though it has not worsened. Previously, Seroquel improved sleep but caused daytime sedation. Hydroxyzine is available for anxiety but is used sparingly due to sedation. She denies any other manic symptoms other than irritability. She previously had a mention of auditory hallucinations according to documentation from psych. Today, she provides additional clarification regarding this. She describes auditory experiences at night, hearing muffled sounds like a distant radio when lying down. Interestingly, her (who does not have any active mental health issues) also is able to hear the sounds at night, suggesting that they are not true hallucinatory events. *Review of systems negative unless otherwise stated in HPI. The following portions of the patient's history were reviewed and updated as appropriate: allergies, current medications, past family history, past medical history, past social history, past surgical history, and problem list. Patient's Medications New Prescriptions No medications on file Previous Medications CARIPRAZINE (VRAYLAR) 1.5 MG CAPSULE Take 1 (one) capsule (1.5 mg total) by mouth daily . GABAPENTIN (NEURONTIN) 600 MG TABLET Take 1 (one) tablet (600 mg total) by mouth 3 (three) times a day . HYDROXYZINE (VISTARIL) 25 MG CAPSULE Take 1 (one) capsule (25 mg total) by mouth 3 (three) times a day as needed for anxiety . PANTOPRAZOLE (PROTONIX) 40 MG TABLET Take 1 (one) tablet (40 mg total) by mouth daily . Modified Medications No medications on file Discontinued Medications No medications on file No problems updated. No problems updated. (Please note that this note was predominantly written using a combination of an AI-based voice recognition software and Dragon dictation. The voice recognition software is inherently subject to errors including those of syntax and sound-alike substitutions which may escape proofreading efforts. In such instances, original meaning may be extrapolated by contextual derivation. Please reach out for any clarification.) documented in this encounter [facility] 12-29-2024 Telephone encounter Note Last OV 11/20/24 Next OV 01/15/25 [facility] 12-29-2024 Miscellaneous Notes Last OV 11/20/24 Next OV 01/15/25 documented in this encounter [facility] 11-25-2024 Telephone encounter Note Last office visit with PCP 10/23/2024, next scheduled office visit 01/15/2025 [facility] 11-25-2024 Miscellaneous Notes Last office visit with PCP 10/23/2024, next scheduled office visit 01/15/2025 documented in this encounter [facility] 11-20-2024 Note Addended by: JESSICA VALENCIA on: 11/20/2024 02:47 PM Modules accepted: Orders [facility] 11-20-2024 Note Addended by: JESSICA VALENCIA on: 11/20/2024 02:47 PM Modules accepted: Orders [facility] 11-20-2024 Miscellaneous Notes Addended by: JESSICA VALENCIA on: 11/20/2024 02:47 PM Modules accepted: Orders documented in this encounter [facility] 11-20-2024 History of Present illness Narrative Images from the original note were not included. Subjective Patient ID: Shae Harris is a 34 y.o. female. Chief Complaint Patient presents with Follow-up depression HPI Shae is a 34-year-old female who presents today to office for follow-up on mood. She states since last visit with PCP, she establish care with psychiatry. She was started on Vraylar. She notes it has helped with mood significantly. Although she does note constipation. She tells me she has a history of issues with constipation, normally having bowel movement every 3 days. She states currently last bowel movement was over a week ago. She has not taken anything yet to help. She denies any nausea/vomiting but does note abdominal pain. Denies any urinary symptoms. Denies any blood in the stool. Notes only surgical history to abdomen was in 2016. Denies any family history of colon cancer or GI issues. For the abdominal pain she has been taking Prilosec [id number] for the last 4 days, which notes mild relief. The following portions of the patient's history were reviewed and updated as appropriate: allergies, current medications, past family history, past medical history, past social history, past surgical history, and problem list. Past Medical History: Diagnosis Date Agoraphobia with panic attacks Anxiety Breakthrough bleeding with IUD 12/13/2023 Depression Fibromyalgia PTSD (post-traumatic stress disorder) Severe episode of recurrent major depressive disorder, without psychotic features ([facility]) 12/11/2018 Stimulant use disorder 12/11/2018 Past Surgical History: Procedure Laterality Date SECTION SECTION 2013 ORTHOPEDIC SURGERY left radial plate and screws TONSILLECTOMY WRIST FRACTURE SURGERY Left Social History[1] Family History Problem Relation Age of Onset Skin cancer Maternal Uncle Cancer Paternal Uncle unknown type Ovarian cancer Paternal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 locate a genetic counselor at [email or web address] or, if they are local to [place] and wish to be seen by the [facility], they can contact [phone] to schedule an appointment Summary & Plan Shae's genetic testing was negative for any clinically significant, identifiable mutations in the genes analyzed above. Shae should recontact us if her personal or family history changes, as this may alter our assessment and/or recommendations. The [facility] would be glad to offer our assistance should you have any questions or concerns about this information. Please feel free to contact us at [phone]. Sridhar Aiken MS, [facility] Licensed, Certified Genetic Counselor CC: Nigel Vaughn DO Anthony, Michelle Shonika, MD Enclosed: Pedigree documented in this encounter [facility] 10-08-2024 Physician Emergency department Note HPI No chief complaint on file. Limitations to History: None HPI: 34-year-old female presents with concern for diarrhea. 4 days ago began feeling unwell. Had belching as well as reflux. Began having watery diarrhea. Diarrhea somewhat improved. Complaining of headache. Has pain in her bilateral back with foul-smelling urine. Denies any fever, chills, vomiting, fall or trauma. ------ Physical Exam: VS: As documented in the triage note and EMR flowsheet from this visit were reviewed. Appearance: Alert. cooperative, in no acute distress. Skin: Intact, dry skin, no lesions, rash, petechiae or purpura. Eyes: PERRLA, EOMs intact, Conjunctiva pink with no redness or exudates. HENT: Normocephalic, atraumatic. Nares patent. No intraoral lesions. Neck: Supple, without meningismus. Trachea at midline. No lymphadenopathy. Pulmonary: Clear bilaterally with good chest wall excursion. No rales, rhonchi or wheezing. No accessory muscle use or stridor. Cardiac: Regular rate and rhythm, no rubs, murmurs, or gallops. Abdomen: Abdomen is soft, nontender, and nondistended. No palpable organomegaly. No rebound or guarding. No CVA tenderness. Nonsurgical abdomen. Genitourinary: Exam deferred. Musculoskeletal: Full range of motion. Pulses full and equal. No cyanosis, clubbing, or edema. Psychiatric: Appropriate mood and affect. Patient History No past medical history on file. No past surgical history on file. No family history on file. Social History Tobacco Use Smoking status: Not on file Smokeless tobacco: Not on file Substance Use Topics Alcohol use: Not on file Drug use: Not on file Physical Exam ED Triage Vitals Temp Pulse Resp BP -- -- -- -- SpO2 Temp src Heart Rate Source Patient Position -- -- -- -- BP Location FiO2 (%) -- -- Physical Exam ED Course & MDM Diagnoses as of 10/08/24 1208 Diarrhea, unspecified type Viral illness Hypokalemia No data recorded Medical Decision Making Labs Reviewed CBC WITH AUTO DIFFERENTIAL - Abnormal WBC 3.9 (*) nRBC 0.0 RBC 4.43 Hemoglobin 14.1 Hematocrit 41.8 MCV 94 MCH 31.8 MCHC 33.7 RDW 12.4 Platelets 164 Neutrophils % 63.1 Immature Granulocytes %, Automated 0.3 Lymphocytes % 22.0 Monocytes % 12.8 Eosinophils % 1.3 Basophils % 0.5 Neutrophils Absolute 2.47 Immature Granulocytes Absolute, Au* 0.01 Lymphocytes Absolute 0.86 (*) Monocytes Absolute 0.50 Eosinophils Absolute 0.05 Basophils Absolute 0.02 COMPREHENSIVE METABOLIC PANEL - Abnormal Glucose 88 Sodium 136 Potassium 3.3 (*) Chloride 104 Bicarbonate 25 Anion Gap 10 Urea Nitrogen 14 Creatinine 0.72 eGFR >90 Calcium 8.0 (*) Albumin 4.4 Alkaline Phosphatase 65 Total Protein 6.8 AST 117 (*) Bilirubin, Total 1.0 ALT 51 (*) URINALYSIS WITH REFLEX CULTURE AND MICROSCOPIC - Abnormal Color, Urine Yellow Appearance, Urine Clear Specific [place], Urine 1.023 pH, Urine 6.0 Protein, Urine 20 (TRACE) Glucose, Urine Normal Blood, Urine (*) Ketones, Urine 60 (2+) (*) Bilirubin, Urine NEGATIVE Urobilinogen, Urine 2 (1+) (*) Nitrite, Urine NEGATIVE Leukocyte Esterase, Urine NEGATIVE URINALYSIS MICROSCOPIC WITH REFLEX CULTURE - Abnormal WBC, Urine NONE RBC, Urine 3-5 Squamous Epithelial Cells, Urine Bacteria, Urine 1+ (*) Mucus, Urine 1+ HUMAN CHORIONIC GONADOTROPIN, SERUM QUANTITATIVE - Normal HCG, Beta-Quantitative <2 Narrative: Total HCG measurement is performed using the [employer] Access Immunoassay which detects intact HCG and free beta HCG subunit. This test is not indicated for use as a tumor marker. HCG testing is performed using a different test methodology at [facility] than other [facility]. Direct result comparison should only be made within the same method. MAGNESIUM - Normal Magnesium 2.08 LIPASE - Normal Lipase 23 Narrative: Venipuncture immediately after or during the administration of Metamizole may lead to falsely low results. Testing should be performed immediately prior to Metamizole dosing. SARS-COV-2 PCR - Normal Coronavirus 2019, PCR Narrative: This assay is an FDA-cleared, in vitro diagnostic nucleic acid amplification test for the qualitative detection and differentiation of SARS CoV-2 from nasopharyngeal specimens collected from individuals with signs and symptoms of respiratory tract infections, and has been validated for use at [facility]. Negative results do not preclude COVID-19 infections and should not be used as the sole basis for diagnosis, treatment, or other management decisions. Testing for SARS CoV-2 is recommended only for patients who meet current clinical and/or epidemiological criteria defined by federal, state, or local public health directives. INFLUENZA A AND B PCR - Normal Flu A Result Flu B Result Narrative: This assay is an in vitro diagnostic multiplex nucleic acid amplification test for the detection and discrimination of Influenza A & B from nasopharyngeal specimens, and has been validated for use at [facility] [facility] Negative results do not preclude Influenza A/B infections, and should not be used as the sole basis for diagnosis, treatment, or other management decisions. If Influenza A/B and RSV PCR results are negative, testing for Parainfluenza virus, Adenovirus and Metapneumovirus is routinely performed for [facility] pediatric oncology and intensive care inpatients, and is available on other patients by placing an add-on request. URINALYSIS WITH REFLEX CULTURE AND MICROSCOPIC Narrative: The following orders were created for panel order Urinalysis with Reflex Culture and Microscopic. Procedure Abnormality Status --------- ------ Urinalysis with Reflex C...[[id number]] Abnormal Final result Extra Urine Jurado Tube[[id number]] In process Please view results for these tests on the individual orders. EXTRA URINE JURADO TUBE Medical Decision Making: Patient appears well nontoxic. Vital signs within normal limits. Benign abdominal exam. Found to have potassium of 3.3. Replaced orally. Patient was treated with intravenous Toradol as well as Zofran. Mild transaminitis. Viral swabs negative. Most likely to be a viral gastroenteritis. Will be treated with Bentyl and Zofran. Advised on continued oral hydration. Advised on follow-up with primary care and asked return for new or worsening symptoms. Stable at time of discharge. Differential Diagnoses Considered: Electrolyte abnormality, volume depletion, gastroenteritis, colitis, viral illness Escalation of Care: Appropriate for discharge and follow-up with primary care. Prescription Drug Consideration: Oral Bentyl and Zofran. Procedure Procedures Óscar Guerra DO 10/08/24 1209 [facility] Work Phone: 10-08-2024 Emergency department Note HPI No chief complaint on file. Limitations to History: None HPI: 34-year-old female presents with concern for diarrhea. 4 days ago began feeling unwell. Had belching as well as reflux. Began having watery diarrhea. Diarrhea somewhat improved. Complaining of headache. Has pain in her bilateral back with foul-smelling urine. Denies any fever, chills, vomiting, fall or trauma. ------ Physical Exam: VS: As documented in the triage note and EMR flowsheet from this visit were reviewed. Appearance: Alert. cooperative, in no acute distress. Skin: Intact, dry skin, no lesions, rash, petechiae or purpura. Eyes: PERRLA, EOMs intact, Conjunctiva pink with no redness or exudates. HENT: Normocephalic, atraumatic. Nares patent. No intraoral lesions. Neck: Supple, without meningismus. Trachea at midline. No lymphadenopathy. Pulmonary: Clear bilaterally with good chest wall excursion. No rales, rhonchi or wheezing. No accessory muscle use or stridor. Cardiac: Regular rate and rhythm, no rubs, murmurs, or gallops. Abdomen: Abdomen is soft, nontender, and nondistended. No palpable organomegaly. No rebound or guarding. No CVA tenderness. Nonsurgical abdomen. Genitourinary: Exam deferred. Musculoskeletal: Full range of motion. Pulses full and equal. No cyanosis, clubbing, or edema. Psychiatric: Appropriate mood and affect. Patient History No past medical history on file. No past surgical history on file. No family history on file. Social History Tobacco Use Smoking status: Not on file Smokeless tobacco: Not on file Substance Use Topics Alcohol use: Not on file Drug use: Not on file Physical Exam ED Triage Vitals Temp Pulse Resp BP -- -- -- -- SpO2 Temp src Heart Rate Source Patient Position -- -- -- -- BP Location FiO2 (%) -- -- Physical Exam ED Course & MDM Diagnoses as of 10/08/24 1208 Diarrhea, unspecified type Viral illness Hypokalemia No data recorded Medical Decision Making Labs Reviewed CBC WITH AUTO DIFFERENTIAL - Abnormal WBC 3.9 (*) nRBC 0.0 RBC 4.43 Hemoglobin 14.1 Hematocrit 41.8 MCV 94 MCH 31.8 MCHC 33.7 RDW 12.4 Platelets 164 Neutrophils % 63.1 Immature Granulocytes %, Automated 0.3 Lymphocytes % 22.0 Monocytes % 12.8 Eosinophils % 1.3 Basophils % 0.5 Neutrophils Absolute 2.47 Immature Granulocytes Absolute, Au* 0.01 Lymphocytes Absolute 0.86 (*) Monocytes Absolute 0.50 Eosinophils Absolute 0.05 Basophils Absolute 0.02 COMPREHENSIVE METABOLIC PANEL - Abnormal Glucose 88 Sodium 136 Potassium 3.3 (*) Chloride 104 Bicarbonate 25 Anion Gap 10 Urea Nitrogen 14 Creatinine 0.72 eGFR >90 Calcium 8.0 (*) Albumin 4.4 Alkaline Phosphatase 65 Total Protein 6.8 AST 117 (*) Bilirubin, Total 1.0 ALT 51 (*) URINALYSIS WITH REFLEX CULTURE AND MICROSCOPIC - Abnormal Color, Urine Yellow Appearance, Urine Clear Specific [place], Urine 1.023 pH, Urine 6.0 Protein, Urine 20 (TRACE) Glucose, Urine Normal Blood, Urine (*) Ketones, Urine 60 (2+) (*) Bilirubin, Urine NEGATIVE Urobilinogen, Urine 2 (1+) (*) Nitrite, Urine NEGATIVE Leukocyte Esterase, Urine NEGATIVE URINALYSIS MICROSCOPIC WITH REFLEX CULTURE - Abnormal WBC, Urine NONE RBC, Urine 3-5 Squamous Epithelial Cells, Urine Bacteria, Urine 1+ (*) Mucus, Urine 1+ HUMAN CHORIONIC GONADOTROPIN, SERUM QUANTITATIVE - Normal HCG, Beta-Quantitative <2 Narrative: Total HCG measurement is performed using the [employer] Access Immunoassay which detects intact HCG and free beta HCG subunit. This test is not indicated for use as a tumor marker. HCG testing is performed using a different test methodology at [facility] than [facility]. Direct result comparison should only be made within the same method. MAGNESIUM - Normal Magnesium 2.08 LIPASE - Normal Lipase 23 Narrative: Venipuncture immediately after or during the administration of Metamizole may lead to falsely low results. Testing should be performed immediately prior to Metamizole dosing. SARS-COV-2 PCR - Normal Coronavirus 2019, PCR Narrative: This assay is an FDA-cleared, in vitro diagnostic nucleic acid amplification test for the qualitative detection and differentiation of SARS CoV-2 from nasopharyngeal specimens collected from individuals with signs and symptoms of respiratory tract infections, and has been validated for use at [facility]. Negative results do not preclude COVID-19 infections and should not be used as the sole basis for diagnosis, treatment, or other management decisions. Testing for SARS CoV-2 is recommended only for patients who meet current clinical and/or epidemiological criteria defined by federal, state, or local public health directives. INFLUENZA A AND B PCR - Normal Flu A Result Flu B Result Narrative: This assay is an in vitro diagnostic multiplex nucleic acid amplification test for the detection and discrimination of Influenza A & B from nasopharyngeal specimens, and has been validated for use at [facility]. Negative results do not preclude Influenza A/B infections, and should not be used as the sole basis for diagnosis, treatment, or other management decisions. If Influenza A/B and RSV PCR results are negative, testing for Parainfluenza virus, Adenovirus and Metapneumovirus is routinely performed for [facility] pediatric oncology and intensive care inpatients, and is available on other patients by placing an add-on request. URINALYSIS WITH REFLEX CULTURE AND MICROSCOPIC Narrative: The following orders were created for panel order Urinalysis with Reflex Culture and Microscopic. Procedure Abnormality Status --------- ------ Urinalysis with Reflex C...[[id number]] Abnormal Final result Extra Urine Jurado Tube[[id number]] In process Please view results for these tests on the individual orders. EXTRA URINE JURADO TUBE Medical Decision Making: Patient appears well nontoxic. Vital signs within normal limits. Benign abdominal exam. Found to have potassium of 3.3. Replaced orally. Patient was treated with intravenous Toradol as well as Zofran. Mild transaminitis. Viral swabs negative. Most likely to be a viral gastroenteritis. Will be treated with Bentyl and Zofran. Advised on continued oral hydration. Advised on follow-up with primary care and asked return for new or worsening symptoms. Stable at time of discharge. Differential Diagnoses Considered: Electrolyte abnormality, volume depletion, gastroenteritis, colitis, viral illness Escalation of Care: Appropriate for discharge and follow-up with primary care. Prescription Drug Consideration: Oral Bentyl and Zofran. Procedure Procedures Óscar Guerra DO 10/08/24 1209 documented in this encounter [facility] Work Phone: 09-24-2024 History of Present illness Narrative [facility]: Hereditary Cancer Risk Assessment [facility] [address], [address] [address] Sridhar Aiken MS, [facility] Visit Type: In-Person Location: [facility] Patient Name: Shae Harris Date of : 1990 Visit Date: 09/24/2024 Start Time: 10:13 AM End Time: 11:02 AM Accompanied by: N/A Reason for Referral Family history of breast & ovarian cancers Relevant Personal History Cancer: N/A Colorectal polyps: N/A Hereditary Genetic Testing History Self: None Relatives: None Relevant Family History Relationship Diagnosis Age at Diagnosis Paternal Grandmother Ovarian cancer 60s Maternal Great Aunt Breast cancer 30s Maternal Great Aunt Breast cancer 30s Maternal Great Great Grandmother Breast cancer 30s All information in this table is per patient report unless otherwise specified. Assessment & Discussion Shae meets current National Comprehensive Cancer Network (NCCN) guidelines for genetic testing Level of suspicion for an inherited condition was reviewed with Shae based on reported relevant history Risks, benefits, and limitations of genetic testing were discussed, including the possible results and implications of these results on Shae and her relatives Provided Shae with information about the Genetic Information Non-Discrimination Act (DIEGO), genetic testing costs, and insurance coverage Plan Genetic testing was recommended and Shae elected to proceed with the 76-gene CancerNext-Expanded Panel + RNAinsight from [employer]. Consent for testing was reviewed and verbal informed consent was obtained. A blood sample was drawn following Shae's appointment and shipped to the laboratory for analysis. We will send results and recommendations to her via [employer] if the results are normal or do not require more detailed discussion. If the results are abnormal or do require a more detailed discussion with Shae, we will call her with the results when available and these results will also be added to the medical record immediately and released to her via [employer]. We spent 49 minutes in discussion [id number] with more than 50% of time spent educating and counseling. Shae expressed an understanding of the information we discussed, and all of her questions were answered. She was provided with educational materials and resources and was encouraged to contact us with any additional questions. The [facility] would be glad to offer our assistance should you have any questions or concerns about this information. Please feel free to contact us at [phone]. Sridhar Aiken MS, [facility] Licensed, Certified Genetic Counselor CC: Shae To, DO Brian Garrido Michelle Shonika, MD documented in this encounter [facility] 06-02-2024 Miscellaneous Notes Last OV 12/13/23. Next OV 08/28/2024. documented in this encounter [facility] 06-02-2024 Telephone encounter Note Last OV 12/13/23. Next OV 08/28/2024. [facility] 02-14-2024 Evaluation + Plan note Associated Problem(s): Fibromyalgia Acupuncture Encounter Indications: upper back, bilateral shoulder pain Verbal consent received for acupuncture. Skin inspected and was clean, showed no signs of infection. Acupuncture needles used: 40mm 16 needles placed with electrostimulation Acupuncture treatment duration: 15 minutes 16 Acupuncture needles were removed and placed into a sharps container. Patient's skin was wiped clean from any blood from acupuncture treatment Patient tolerated procedure well. Will follow up for further acupuncture treatment in 2-3 weeks [facility] 02-14-2024 Miscellaneous Notes Associated Problem(s): Fibromyalgia Acupuncture Encounter Indications: upper back, bilateral shoulder pain Verbal consent received for acupuncture. Skin inspected and was clean, showed no signs of infection. Acupuncture needles used: 40mm 16 needles placed with electrostimulation Acupuncture treatment duration: 15 minutes 16 Acupuncture needles were removed and placed into a sharps container. Patient's skin was wiped clean from any blood from acupuncture treatment Patient tolerated procedure well. Will follow up for further acupuncture treatment in 2-3 weeks documented in this encounter [facility] 02-14-2024 History of Present illness Narrative Patient Name: Shae Harris Date: 02/14/24 Patient : 1990 Patient Age: 33 y.o. Chief Complaint Patient presents with Procedure Acup pain to b/l shoulders/neck/upper back d/t fibro History of Present Illness Here for acupuncture Referred by Dr. To Having pain to bilateral shoulders, neck and upper back due to fibromyalgia States superficially on skin she feels numb but muscles are tight Has been on gabapentin before The following portions of the patient's history were reviewed and updated as appropriate: allergies, current medications, past family history, past medical history, past social history, past surgical history and problem list. Review of Systems Constitutional: Negative for chills and fever. HENT: Negative for congestion and sore throat. Eyes: Negative for visual disturbance. Respiratory: Negative for cough. Gastrointestinal: Negative for abdominal pain, constipation and diarrhea. Musculoskeletal: Positive for back pain and myalgias. Skin: Negative for rash and wound. Neurological: Negative for dizziness, weakness and headaches. Psychiatric/Behavioral: Negative for sleep disturbance. The patient is not nervous/anxious. Vitals: 02/14/24 1535 BP: 131/78 Pulse: 79 Temp: 98.2 F (36.8 C) TempSrc: Temporal SpO2: 97% Wt Readings from Last 3 Encounters: 01/04/24 71.2 kg (157 lb) 12/13/23 68 kg (150 lb) 06/13/23 69.4 kg (153 lb) Physical Exam Vitals and nursing note reviewed. Constitutional: Appearance: Normal appearance. HENT: Head: Normocephalic and atraumatic. Right Ear: External ear normal. Left Ear: External ear normal. Eyes: Conjunctiva/sclera: Conjunctivae normal. Pulmonary: Effort: Pulmonary effort is normal. Breath sounds: Normal breath sounds. Skin: General: Skin is warm and dry. Neurological: General: No focal deficit present. Mental Status: She is alert. Psychiatric: Mood and Affect: Mood normal. Behavior: Behavior normal. Thought Content: Thought content normal. Judgment: Judgment normal. OARRS/NARxCHECK Report Received and Assessed: Date controlled substance agreement signed: No data found Date of last drug screen: 12/11/2018 Problem List Items Addressed This Visit Other Fibromyalgia - Primary Acupuncture Encounter Indications: upper back, bilateral shoulder pain Verbal consent received for acupuncture. Skin inspected and was clean, showed no signs of infection. Acupuncture needles used: 40mm 16 needles placed with electrostimulation Acupuncture treatment duration: 15 minutes 16 Acupuncture needles were removed and placed into a sharps container. Patient's skin was wiped clean from any blood from acupuncture treatment Patient tolerated procedure well. Will follow up for further acupuncture treatment in 2-3 weeks Return in about 3 weeks (around 03/06/2024) for Acup/OMT for upper back. For any new medications prescribed today, patient was educated about indications for the medication, how to take the medication and potential side effects of the medications. documented in this encounter [facility] 01-04-2024 History of Present illness Narrative Images from the original note were not included. [employer] VISIT Subjective Shae Harris is a 33 y.o. who presents today for IUD removal. She states that she had a mirena IUD placed about a year ago for contraception and for the last 6 months been having postcoital bleeding every time. She also mentions that she also have some mild pain when the bleeding occurs. She therefore will like it removed. She has used depo in the past but had significant AUB. She also has tried POP but had spotting. She mention that she does have migraines with aura this only started after having her IUD placed She denies hypertension , Hx of DVT or family history of clotting disorders. Denies smoking. Before mirena placement she would have menses monthly, lasting 4 days with moderate bleeding with moderate pain. OB History Para Term AB Living 4 1 1 0 3 1 SAB IAB Ectopic Multiple Live Births 0 0 0 1 # Outcome Date GA Lbr Shane/2nd Weight Sex Delivery Anes PTL Lv 4 Term 12/29/15 M CS-Classical [place] 3 AB 2 AB 1 AB Past Medical History: Diagnosis Date Agoraphobia with panic attacks Anxiety Depression Fibromyalgia PTSD (post-traumatic stress disorder) Severe episode of recurrent major depressive disorder, without psychotic features ([facility]) 12/11/2018 Stimulant use disorder 12/11/2018 Active Home Medications Medication Sig Take Last Dose On Take Morning of Surgery Comment(s) gabapentin (NEURONTIN) 600 MG tablet Take 1 (one) tablet (600 mg total) by mouth 3 (three) times a day . Past Surgical History: Procedure Laterality Date SECTION SECTION 2013 ORTHOPEDIC SURGERY left radial plate and screws TONSILLECTOMY WRIST FRACTURE SURGERY Left Allergies Allergen Reactions Hazelnut Anaphylaxis Cabbage Unknown Food Extracts Unknown Other Unknown Tree Nuts Unknown Any family history of: Breast cancer: materna; Yes, great aunt x 2 , 30's . Maternal Great great grand mother Colon cancer: No Uterine cancer: No Ovarian cancer: Yes, 70's Do you use alcohol? Yes, rarely Do you smoke? No Do you use street drugs? No The following portions of the patient's history were reviewed and updated as appropriate: allergies, current medications, past family history, past medical history, past social history, past surgical history and problem list. Review of Systems Objective: Physical Exam BP 110/68 Pulse 96 Ht 5' 4 Wt 71.2 kg (157 lb) BMI 26.95 kg/m General: Alert, well nourished, in no apparent distress HEENT: Normocephalic, atraumatic Lungs: No visible distress with breaths : VULVA: normal appearing vulva with no masses, tenderness or lesions VAGINA: normal appearing vagina with normal color and discharge, no lesions CERVIX: normal appearing cervix without discharge or lesions. IUD string seen protruding UTERUS: uterus is normal size, shape, consistency and nontender ADNEXA: normal adnexa in size, nontender and no masses. IUD Removal Procedure Note Type of IUD: Mirena Date of insertion: exact dates unknown, 2022 Reason for removal: Side effect: AUB Other relevant history/information: none Procedure Time Out Documentation Procedures Procedure Details IUD strings visible: yes Local anesthesia: None Tenaculum used: None Removal: IUD strings grasped and IUD removed intact with gentle traction. The patient tolerated the procedure well. All appropriate instructions regarding removal were reviewed. Assessment/Plan: 1.IUD removal -Discussed with patient that spotting after intercourse is not uncommon with IUD in place along with unpredictable spotting, however patient still requested removal -Discussed other options and patient is considering OCPs vs Nexplanon -If nexplanon patient would return after one month of monitoring migraines as nexplanon does have a side effect of possible headaches -If OCP poatient to monitor migraines for 2 months to determine if they were due to mirena which is unlikely -Patient will think about it and let office know -Safe sex discussed and the use of condoms for back up contraception discussed Fang Torres MD Obstetrics and Gynecology [facility] [address] [place] [id number] documented in this encounter [facility] 12-13-2023 Evaluation + Plan note Associated Problem(s): Breakthrough bleeding with IUD Greater than 1 year of breakthrough bleeding on Mirena IUD, particularly after intercourse, and this is causing frustration for patient. She also desires an COPYING MACHINE REPAIRER provider. Last Pap was in 2022 with [facility], which has since closed down. Patient states that Pap was within normal limits. Will refer to Dr. Torres for consideration of Mirena removal as well as ongoing women's health care. [facility] 12-13-2023 Miscellaneous Notes Associated Problem(s): Breakthrough bleeding with IUD Greater than 1 year of breakthrough bleeding on Mirena IUD, particularly after intercourse, and this is causing frustration for patient. She also desires an COPYING MACHINE REPAIRER provider. Last Pap was in 2022 with [facility], which has since closed down. Patient states that Pap was within normal limits. Will refer to Dr. Torres for consideration of Mirena removal as well as ongoing women's health care. Associated Problem(s): Family history of breast cancer Not in first-degree family member, but does seem to have a very strong history of early breast cancer on her mother's side. Does raise concern for BRCA mutation. Referring to genetics for further counseling and workup if indicated. Associated Problem(s): Fibromyalgia Diagnosed by previous PCP, and patient's clinical picture is consistent with the same. Prior treatments failed include Cymbalta and amitriptyline. Now having significant improvement on gabapentin. Overall significantly improved since increasing gabapentin to 600 mg tablets 3 times daily. Encouraged lifestyle modifications for improving fibromyalgia symptoms, especially diet and exercise modification. She is interested in trying acupuncture, so referral placed to Dr. Lakhani. documented in this encounter [facility] 12-13-2023 Evaluation + Plan note Associated Problem(s): Family history of breast cancer Not in first-degree family member, but does seem to have a very strong history of early breast cancer on her mother's side. Does raise concern for BRCA mutation. Referring to genetics for further counseling and workup if indicated. [facility] 12-13-2023 Evaluation + Plan note Associated Problem(s): Fibromyalgia Diagnosed by previous PCP, and patient's clinical picture is consistent with the same. Prior treatments failed include Cymbalta and amitriptyline. Now having significant improvement on gabapentin. Overall significantly improved since increasing gabapentin to 600 mg tablets 3 times daily. Encouraged lifestyle modifications for improving fibromyalgia symptoms, especially diet and exercise modification. She is interested in trying acupuncture, so referral placed to Dr. Lakhani. [facility] 12-13-2023 History of Present illness Narrative Assessment & Plan Problem List Fibromyalgia - Primary Diagnosed by previous PCP, and patient's clinical picture is consistent with the same. Prior treatments failed include Cymbalta and amitriptyline. Now having significant improvement on gabapentin. Overall significantly improved since increasing gabapentin to 600 mg tablets 3 times daily. Encouraged lifestyle modifications for improving fibromyalgia symptoms, especially diet and exercise modification. She is interested in trying acupuncture, so referral placed to Dr. Lakhani. Relevant Medications gabapentin (NEURONTIN) 600 MG tablet Other Relevant Orders Ambulatory referral for Acupuncture Family history of breast cancer Not in first-degree family member, but does seem to have a very strong history of early breast cancer on her mother's side. Does raise concern for BRCA mutation. Referring to genetics for further counseling and workup if indicated. Relevant Orders Ambulatory referral to Genetics-Adult Breakthrough bleeding with IUD Greater than 1 year of breakthrough bleeding on Mirena IUD, particularly after intercourse, and this is causing frustration for patient. She also desires an COPYING MACHINE REPAIRER provider. Last Pap was in 2022 with [facility], which has since closed down. Patient states that Pap was within normal limits. Will refer to Dr. Torres for consideration of Mirena removal as well as ongoing women's health care. Relevant Orders Ambulatory referral to Obstetrics / Gynecology For any new medications prescribed today, patient was educated about indications for the medication, how to take the medication, and potential side effects of the medication. I am managing Shae Harris for complex chronic condition(s) serving as the focal point for the patient's care for consistency and continuity over time. Return in about 9 months (around 09/14/2024) for Annual Exam. Nigel To DO, MS Family Medicine, Osteopathic Manipulative Medicine, and Hospital Medicine [facility] 12/13/2023 Subjective Chief Complaint Patient presents with Follow-up HPI After discussing the use of ambient listening and audio recording in generating medical documentation, the patient verbally consented to use of this technology for today's visit. History of Present Illness The patient presents for follow-up of fibromyalgia. The patient reports experiencing both good and bad days, attributing this to stress related to recent relocation, work location changes, and legal issues related to her son's impending trial in 03/2024. She acknowledges that gabapentin 600 mg has been effective in managing her symptoms. She has not engaged in yoga or Guzman Chi, but now does more barre, which she finds beneficial. She also engages in painting and has never engaged in art therapy. She has observed that certain treatments exacerbate her symptoms before improvement is observed. The patient expresses concern about her familial predisposition to breast cancer, noting that her maternal aunts and great aunts prior to their age of 39 from breast cancer. Her mother did not exhibit any breast cancer-related issues, but her maternal grandmother also from breast cancer before the age of 39. She is uncertain if anyone in her family has undergone genetic testing. The patient's Pap smear conducted in 2023 yielded normal results. She currently has a Mirena IUD in place and expresses a desire to have it removed. She reports experiencing breakthrough bleeding following intercourse, lasting approximately three days. This issue has been ongoing for slightly less than a year. The patient has a history of ovarian cysts. The following portions of the patient's history were reviewed and updated as appropriate: allergies, current medications, past family history, past medical history, past social history, past surgical history and problem list. Patient's Medications New Prescriptions No medications on file Previous Medications No medications on file Modified Medications Modified Medication Previous Medication GABAPENTIN (NEURONTIN) 600 MG TABLET gabapentin (NEURONTIN) 600 MG tablet Take 1 (one) tablet (600 mg total) by mouth 3 (three) times a day . Take 1 (one) tablet (600 mg total) by mouth 3 (three) times a day . Discontinued Medications No medications on file Review of Systems Objective Vitals: 12/13/23 0958 BP: 120/80 BP Location: Left arm Patient Position: Sitting BP Cuff Size: Adult Pulse: 85 Resp: 16 Temp: 98.4 F (36.9 C) TempSrc: Temporal SpO2: 97% Weight: 68 kg (150 lb) Height: 5' 4 Physical Exam Vitals and nursing note reviewed. Constitutional: General: She is not in acute distress. Appearance: Normal appearance. She is not ill-appearing, toxic-appearing or diaphoretic. HENT: Head: Normocephalic and atraumatic. Nose: No nasal deformity or signs of injury. Mouth/Throat: Lips: No lesions. Eyes: Extraocular Movements: Extraocular movements intact. Pulmonary: Effort: No tachypnea, bradypnea, accessory muscle usage, respiratory distress or retractions. Neurological: General: No focal deficit present. Mental Status: She is alert and oriented to person, place, and time. Motor: Motor function is intact. Coordination: Coordination is intact. Gait: Gait is intact. Psychiatric: Attention and Perception: Attention and perception normal. Mood and Affect: Mood and affect normal. Speech: Speech normal. Behavior: Behavior normal. Thought Content: Thought content normal. Cognition and Memory: Cognition and memory normal. Judgment: Judgment normal. Physical Exam Osteopathic Medical Exam Results PHQ9: HALLIE-7 (Please note that portions of this note have been completed with a voice recognition software. Efforts were made to correct any errors, but occasionally words are mis-transcribed.) documented in this encounter [facility] 09-13-2023 Evaluation + Plan note Associated Problem(s): Fibromyalgia Diagnosed by previous PCP, and patient's clinical picture is consistent with the same. Prior treatments failed include Cymbalta and amitriptyline. Now having significant improvement on gabapentin. Overall significantly improved since increasing gabapentin to 400 mg caps 3 times daily, but currently in flare-up. After shared decision-making, we will briefly increase her to 600 mg tablets TID for approximately the next month, after which she will cut her tablets in half and try to go back down to 300 mg TID. Encouraged lifestyle modifications for improving fibromyalgia symptoms, especially diet and exercise modification. Follow-up already scheduled for 12/12. [facility] 09-13-2023 Miscellaneous Notes Associated Problem(s): Fibromyalgia Diagnosed by previous PCP, and patient's clinical picture is consistent with the same. Prior treatments failed include Cymbalta and amitriptyline. Now having significant improvement on gabapentin. Overall significantly improved since increasing gabapentin to 400 mg caps 3 times daily, but currently in flare-up. After shared decision-making, we will briefly increase her to 600 mg tablets TID for approximately the next month, after which she will cut her tablets in half and try to go back down to 300 mg TID. Encouraged lifestyle modifications for improving fibromyalgia symptoms, especially diet and exercise modification. Follow-up already scheduled for 12/12. documented in this encounter [facility] 09-13-2023 History of Present illness Narrative Telephone Visit Via Phone Call [facility] [address] [place] [phone] Telephone Visit [facility] 09/13/2023 Nigel To DO Provider Location: [address] [place] [address] Patient Location [employer]: None Patient Location: Patient's Home Patient: Shae Harris Date of : 1990 (33 y.o. female) PCP: Nigel To DO I discussed risks, benefits and alternatives of a telephone visit telemedicine consultation with the patient (and any accompanying persons) including the risks that the patient's personal health details and medical records will be discussed over real-time, synchronous, interactive audio technology, the visit will not be recorded without the express consent of both the provider and the patient, and that there are inherent diagnostic limitations compared to [id number] evaluations. We elected to proceed with the telephone visit telemedicine consultation. HPI Fibromyalgia: Overall had been doing much better on 400 mg TID but currently in a flare up Moving to a new house and has an upcoming court hearing too Current situational stress has led to increased generalized pain Otherwise denies major issues The following portions of the patient's history were reviewed and updated as appropriate: allergies, current medications, past family history, past medical history, past social history, past surgical history, and problem list. Review of Systems Patient's Medications New Prescriptions GABAPENTIN (NEURONTIN) 600 MG TABLET Take 1 (one) tablet (600 mg total) by mouth 3 (three) times a day . Previous Medications No medications on file Modified Medications No medications on file Discontinued Medications GABAPENTIN (NEURONTIN) 400 MG CAPSULE Take 1 (one) capsule (400 mg total) by mouth 3 (three) times a day . Assessment/Plan: Problem List Fibromyalgia - Primary Diagnosed by previous PCP, and patient's clinical picture is consistent with the same. Prior treatments failed include Cymbalta and amitriptyline. Now having significant improvement on gabapentin. Overall significantly improved since increasing gabapentin to 400 mg caps 3 times daily, but currently in flare-up. After shared decision-making, we will briefly increase her to 600 mg tablets TID for approximately the next month, after which she will cut her tablets in half and try to go back down to 300 mg TID. Encouraged lifestyle modifications for improving fibromyalgia symptoms, especially diet and exercise modification. Follow-up already scheduled for 12/12. Relevant Medications gabapentin (NEURONTIN) 600 MG tablet I have spent 7 minutes with the patient reviewing the HPI and Plan of Care. Return in 13 weeks (on 12/13/2023) for Follow Up fibromyalgia already scheduled. (Please note that portions of this note have been completed with a voice recognition software. 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 Will refer to allergy for further evaluation of whether or not patient has IgE mediated disease. 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 Will refer to allergy for further evaluation of whether or not patient has IgE mediated disease. Associated Problem(s): Chronic migraine with aura without status migrainosus, not intractable Plan to initiate treatment gabapentin as above, which has evidence for efficacy and migraine treatment. Encouraged trigger avoidance. Prophylactic therapy may also be beneficial, patient reports previously trying propranolol which may have been effective. At her follow-up in 4 weeks, we will consider initiating prophylactic medication. Associated Problem(s): Opioid use disorder in remission Previously used heroin, has been clean since 2018. Positively reinforced patient's efforts to remain sober. Associated Problem(s): Fibromyalgia Previous diagnosis, unclear if she has ever followed with rheumatology or another specialist. Prior treatments failed include Cymbalta, amitriptyline. She reports having success with gabapentin in the past. We will start this at 300 mg 3 times daily and reassess the effect in 4 weeks. At that time, we will stress a multidisciplinary approach to treating her fibromyalgia. Strongly encouraged mindfulness for stress reduction as well as continued follow-up with behavioral health for her psychiatric needs. documented in this encounter [facility] 05-08-2023 Evaluation + Plan note Associated Problem(s): Chronic migraine with aura without status migrainosus, not intractable Plan to initiate treatment gabapentin as above, which has evidence for efficacy and migraine treatment. Encouraged trigger avoidance. Prophylactic therapy may also be beneficial, patient reports previously trying propranolol which may have been effective. At her follow-up in 4 weeks, we will consider initiating prophylactic medication. [facility] 05-08-2023 Evaluation + Plan note Associated Problem(s): Opioid use disorder in remission Previously used heroin, has been clean since 2018. Positively reinforced patient's efforts to remain sober. T [facility] 05-08-2023 Evaluation + Plan note Associated Problem(s): Fibromyalgia Previous diagnosis, unclear if she has ever followed with rheumatology or another specialist. Prior treatments failed include Cymbalta, amitriptyline. She reports having success with gabapentin in the past. We will start this at 300 mg 3 times daily and reassess the effect in 4 weeks. At that time, we will stress a multidisciplinary approach to treating her fibromyalgia. Strongly encouraged mindfulness for stress reduction as well as continued follow-up with behavioral health for her psychiatric needs. [facility] 05-07-2023 History of Present illness Narrative Assessment & Plan Problem List Fibromyalgia - Primary Previous diagnosis, unclear if she has ever followed with rheumatology or another specialist. Prior treatments failed include Cymbalta, amitriptyline. She reports having success with gabapentin in the past. We will start this at 300 mg 3 times daily and reassess the effect in 4 weeks. At that time, we will stress a multidisciplinary approach to treating her fibromyalgia. Strongly encouraged mindfulness for stress reduction as well as continued follow-up with behavioral health for her psychiatric needs. Relevant Medications gabapentin (NEURONTIN) 300 MG capsule Chronic migraine with aura without status migrainosus, not intractable Plan to initiate treatment gabapentin as above, which has evidence for efficacy and migraine treatment. Encouraged trigger avoidance. Prophylactic therapy may also be beneficial, patient reports previously trying propranolol which may have been effective. At her follow-up in 4 weeks, we will consider initiating prophylactic medication. Relevant Medications gabapentin (NEURONTIN) 300 MG capsule 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 No prior allergy testing. Will refer to allergy for further evaluation of whether or not patient has IgE mediated disease. Relevant Orders Ambulatory referral to Allergy Opioid use disorder in remission Previously used heroin, has been clean since 2018. Positively reinforced patient's efforts to remain sober. For any new medications prescribed today, patient was educated about indications for the medication, how to take the medication, and potential side effects of the medication. Return in about 4 weeks (around 06/04/2023) for Follow Up fibromyalgia. Nigel To DO, MS Family Medicine, Osteopathic Manipulative Medicine, and Hospital Medicine [facility] 05/07/2023 Subjective Chief Complaint Patient presents with Establish Care Concerns for fibromyalgia HPI Shae Vasquez is a 33 y.o. [1] female presenting with: Fibromyalgia and migraines: Diagnosed in 2013, was on gabapentin at that time which helped. Was in senior living and had to stop therapy. Had difficulty with headaches, confusion, memory while in senior living for a few months in 2018. Had to be off all meds while she was at a retirement house afterward. Feels like all of her symptoms are getting significantly worse. Mid back is especially tender in upper thoracic region. Migraines have been fairly frequent. Feels like she is having brain fog and visual changes and some issues with brain fog while at work which is causing a lot of stress. Probably having 5 migraine episodes per week. Uses aleve as soon as it starts with a visual aura of strobe lights. Using aleve about 5x per week. Patient feels she has tried Cymbalta in the past and didn't like it. Also thinks she was at amitryptiline for another indication and didn't like it. She can't be sure about this though. Patient currently follows with psychiatry and discussed the possibility of medication for fibromyalgia with them and they recommended that she work with a PCP for pain management. She has an appointment with them this for follow-up (counselor name Mary). Other medical conditions: patient follows with Psychiatry/ for mental health needs. Tonsills out before. C/S history. Skull fracture in 2018. Has hx of opioid use disorder and has been clean from heroin since 2018. Pt had an OB until recently and they closed their practice so she is transitioning to [facility]. She has a mirena IUD. Had a pap smear in February in March was normal as far as she is aware. Of note, patient states that she has experienced dyspnea whenever she has been in the vicinity of [place], but has never gone to the emergency department for this and has never received epinephrine. She has never had a true anaphylactic reaction and has not seen an team primary care physician. The following portions of the patient's history were reviewed and updated as appropriate: allergies, current medications, past family history, past medical history, past social history, past surgical history and problem list. Patient's Medications New Prescriptions GABAPENTIN (NEURONTIN) 300 MG CAPSULE Take 1 (one) capsule (300 mg total) by mouth every 8 (eight) hours . Previous Medications No medications on file Modified Medications No medications on file Discontinued Medications DULOXETINE (CYMBALTA) 30 MG CAPSULE Take 1 (one) capsule (30 mg total) by mouth daily Start: 12/17/18. PRAZOSIN (MINIPRESS) 2 MG CAPSULE Take 1 (one) capsule (2 mg total) by mouth nightly . Review of Systems Constitutional: Positive for fatigue. Negative for chills and fever. Eyes: Positive for photophobia and visual disturbance. Respiratory: Negative for shortness of breath. Cardiovascular: Negative for chest pain. Gastrointestinal: Negative for nausea and vomiting. Genitourinary: Negative for dysuria. Musculoskeletal: Positive for myalgias. Neurological: Positive for headaches. Psychiatric/Behavioral: Positive for confusion, decreased concentration and sleep disturbance. Objective Vitals: 05/07/23 1427 BP: 124/81 BP Location: Right arm Patient Position: Sitting BP Cuff Size: X-large Adult Pulse: 86 Resp: 16 Temp: 98.3 F (36.8 C) TempSrc: Temporal SpO2: 98% Weight: 70.8 kg (156 lb) Height: 5' 4 Physical Exam Vitals and nursing note reviewed. Constitutional: General: She is not in acute distress. Appearance: Normal appearance. She is well-developed. She is not ill-appearing, toxic-appearing or diaphoretic. HENT: Head: Normocephalic and atraumatic. Right Ear: External ear normal. Left Ear: External ear normal. Nose: Nose normal. Eyes: General: Vision grossly intact. Gaze aligned appropriately. Extraocular Movements: Extraocular movements intact. Conjunctiva/sclera: Conjunctivae normal. Right eye: Right conjunctiva is not injected. No exudate. Left eye: Left conjunctiva is not injected. No exudate. Pupils: Pupils are equal, round, and reactive to light. Cardiovascular: Rate and Rhythm: Normal rate and regular rhythm. Heart sounds: S1 normal and S2 normal. No murmur heard. No friction rub. No gallop. No S3 or S4 sounds. Pulmonary: Effort: Pulmonary effort is normal. No tachypnea, accessory muscle usage or respiratory distress. Breath sounds: No decreased air movement or transmitted upper airway sounds. No decreased breath sounds, wheezing, rhonchi or rales. Musculoskeletal: General: No tenderness. Right lower leg: No edema. Left lower leg: No edema. Skin: General: Skin is warm and dry. Findings: No rash. Neurological: General: No focal deficit present. Mental Status: She is alert and oriented to person, place, and time. Mental status is at baseline. Motor: Motor function is intact. No tremor or abnormal muscle tone. Coordination: Coordination is intact. Gait: Gait is intact. Psychiatric: Attention and Perception: Attention and perception normal. Mood and Affect: Affect normal. Mood is anxious. Speech: Speech normal. Behavior: Behavior normal. Thought Content: Thought content normal. Cognition and Memory: Cognition and memory normal. Judgment: Judgment normal. Osteopathic Medical Exam PHQ9: HALLIE-7 (Please note that portions of this note have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
== END 2025-06-06 14:22 | disposition home or self-care (01) ==
LOC: ED 14:08
PROVIDERS: Emergency Provider Emergency Medicine; PCP Hospitalist; Visit Provider Emergency Medicine
DX: L03.115 Cellulitis of right lower limb (principal); F17.290 Nicotine dependence, other tobacco product, uncomplicated
CPT/HCPCS: 99282